=== PATIENT | male | born 1990 | race Caucasian/White ===

== ENCOUNTER 2017-08-26 14:46 | Inpatient (IN) | payer OTHER ==
[2017-08-26 15:59] LABS: HEMATOCRIT 39.9 % (42.0-52.0); HEMOGLOBIN 13.4 g/dl (13.5-17.5); MEAN CORPUSCULAR HEMOGLOBIN 29.6 pg (27.0-33.0); MEAN CORPUSCULAR HGB CONC 33.6 g/dl (32.0-36.5); MEAN CORPUSCULAR VOLUME 88.1 fl (80.0-96.0); PLATELET COUNT, AUTOMATED 264 10^3/uL (150-450); RED BLOOD COUNT 4.53 10^6/uL (4.30-6.10); RED CELL DISTRIBUTION WIDTH 12.4 % (11.5-14.5); WHITE BLOOD COUNT 4.7 10^3/uL (4.0-10.0)
[2017-08-26 16:26] LABS: AMPHETAMINES LEVEL URINE NEGATIVE (NEGATIVE); BARBITURATES URINE NEGATIVE (NEGATIVE); BENZODIAZEPINES URINE NEGATIVE (NEGATIVE); CANNABINOIDS URINE NEGATIVE (NEGATIVE); COCAINE METABOLITE URINE NEGATIVE (NEGATIVE); METHADONE URINE NEGATIVE (NEGATIVE); OPIATES URINE NEGATIVE (NEGATIVE); PHENCYCLIDINE URINE NEGATIVE (NEGATIVE)
[2017-08-26 16:36] LABS: ALBUMIN 4.4 GM/DL (3.2-5.2); ALBUMIN/GLOBULIN RATIO 1.13 (1.00-1.93); ALKALINE PHOSPHATASE 67 U/L (45-117); ALT/SGPT 19 U/L (12-78); ANION GAP 5 MEQ/L (8-16); AST/SGOT 15 U/L (7-37); BILIRUBIN,DIRECT < 0.1 MG/DL (0.0-0.2); BILIRUBIN,TOTAL 0.3 MG/DL (0.2-1.0); BLOOD UREA NITROGEN 13 MG/DL (7-18); CALCIUM LEVEL 8.8 MG/DL (8.5-10.1); CARBON DIOXIDE LEVEL 31 MEQ/L (21-32); CHLORIDE LEVEL 109 MEQ/L (98-107); CREATININE FOR GFR 0.85 MG/DL (0.70-1.30); ETHYL ALCOHOL (ETHANOL) 0.097 % (0.000-0.010); GLOMERULAR FILTRATION RATE > 60.0 (>60); GLUCOSE, FASTING 83 MG/DL (70-100); SALICYLATE LEVEL < 1.7 MG/DL (5.0-30.0); SODIUM LEVEL 145 MEQ/L (136-145); TOTAL PROTEIN 8.3 GM/DL (6.4-8.2)
[2017-08-26] MEDS: ACETAMINOPHEN TAB 650MG DOSE (2X325MG) PO (17:00)
[2017-08-26 17:48] LABS: ACETAMINOPHEN LEVEL < 2.0 UG/ML (10.0-30.0)
[2017-08-26] MEDS ORDERED: MAALOX 30 ML SUSP *UDC PO (19:30)
[2017-08-26] MEDS ORDERED: MOM 30ML SUSPENSION UDC PO (19:30)
[2017-08-26] MEDS ORDERED: ACETAMINOPHEN TAB 650MG DOSE (2X325MG) PO (19:30)
[2017-08-26] MEDS ORDERED: traZODone 50 MG TAB PO (19:30)
[2017-08-27] MEDS: NICOTINE 7 MG/24 HR TRANSDERMAL TD (08:42)
[2017-08-27] MEDS: NICOTINE POLACRILEX 2 MG GUM PO ×3 (11:54→18:58)
[2017-08-27] MEDS: buPROPion **XL** TABLET 150MG (WELLBUTRIN XL) PO (12:14)
[2017-08-27] MEDS: MIRTAZAPINE 7.5MG PER 1/2 TABLET PO (21:54)
[2017-08-28] MEDS: buPROPion **XL** TABLET 150MG (WELLBUTRIN XL) PO (08:30)
[2017-08-28] MEDS: NICOTINE POLACRILEX 2 MG GUM PO ×3 (08:31→20:25)
[2017-08-28] MEDS: MIRTAZAPINE 7.5MG PER 1/2 TABLET PO (20:52)
[2017-08-29] MEDS: buPROPion **XL** TABLET 150MG (WELLBUTRIN XL) PO (09:59)
[2017-08-29] MEDS: hydrOXYzine 25 MG TAB PO ×2 (16:22→21:18)
[2017-08-29] MEDS: NICOTINE POLACRILEX 2 MG GUM PO ×2 (16:22→21:18)
[2017-08-29] MEDS: MIRTAZAPINE 7.5MG PER 1/2 TABLET PO (21:17)
[2017-08-30] MEDS: buPROPion **XL** TABLET 150MG (WELLBUTRIN XL) PO (07:54)
[2017-08-30] MEDS: hydrOXYzine 25 MG TAB PO (09:46)
[2017-08-30] MEDS: NICOTINE POLACRILEX 2 MG GUM PO ×2 (10:29→18:53)
[2017-08-30] MEDS: OLANZapine 5 MG TAB PO ×2 (13:38→21:09)
[2017-08-30] MEDS: MIRTAZAPINE 7.5MG PER 1/2 TABLET PO (21:09)
[2017-08-31] MEDS: OLANZapine 5 MG TAB PO ×2 (07:53→20:17)
[2017-08-31] MEDS: buPROPion **XL** TABLET 150MG (WELLBUTRIN XL) PO (07:53)
[2017-08-31] MEDS: MIRTAZAPINE 7.5MG PER 1/2 TABLET PO (20:17)
[2017-09-01] MEDS: buPROPion **XL** TABLET 150MG (WELLBUTRIN XL) PO (10:17)
[2017-09-01] MEDS: OLANZapine 5 MG TAB PO (10:19)
[2017-09-01] MEDS: NICOTINE POLACRILEX 2 MG GUM PO (11:34)
== END 2017-09-01 12:25 | disposition home or self-care (01) | DRG 885 ==
LOC: M ED 14:46 → M ED INP 19:24 → M PSY 22:50
DX: F33.1 Major depressive disorder, recurrent, moderate (principal); F17.220 Nicotine dependence, chewing tobacco, uncomplicated; F10.10 Alcohol abuse, uncomplicated; Z79.899 Other long term (current) drug therapy; Z62.811 Personal history of psychological abuse in childhood; Z62.810 Personal history of physical and sexual abuse in childhood; Z91.5 Personal history of self-harm

== ENCOUNTER 2017-09-03 12:49 | Inpatient (IN) | payer OTHER ==
[2017-09-03 13:36] LABS: HEMATOCRIT 36.9 % (42.0-52.0); HEMOGLOBIN 12.2 g/dl (13.5-17.5); MEAN CORPUSCULAR HEMOGLOBIN 29.5 pg (27.0-33.0); MEAN CORPUSCULAR HGB CONC 33.1 g/dl (32.0-36.5); MEAN CORPUSCULAR VOLUME 89.3 fl (80.0-96.0); PLATELET COUNT, AUTOMATED 217 10^3/uL (150-450); RED BLOOD COUNT 4.13 10^6/uL (4.30-6.10); WHITE BLOOD COUNT 8.7 10^3/uL (4.0-10.0)
[2017-09-03 14:19] LABS: ALBUMIN/GLOBULIN RATIO 1.14 (1.00-1.93); ALKALINE PHOSPHATASE 63 U/L (45-117); ALT/SGPT 284 U/L (12-78); ANION GAP 4 MEQ/L (8-16); AST/SGOT 165 U/L (7-37); BILIRUBIN,DIRECT < 0.1 MG/DL (0.0-0.2); BILIRUBIN,TOTAL 0.3 MG/DL (0.2-1.0); BLOOD UREA NITROGEN 17 MG/DL (7-18); CALCIUM LEVEL 9.1 MG/DL (8.5-10.1); CARBON DIOXIDE LEVEL 31 MEQ/L (21-32); CHLORIDE LEVEL 106 MEQ/L (98-107); CREATININE FOR GFR 0.89 MG/DL (0.70-1.30); ETHYL ALCOHOL (ETHANOL) < 0.003 % (0.000-0.010); GLOMERULAR FILTRATION RATE > 60.0 (>60); GLUCOSE, FASTING 74 MG/DL (70-100); POTASSIUM SERUM 3.7 MEQ/L (3.5-5.1); SALICYLATE LEVEL < 1.7 MG/DL (5.0-30.0); SODIUM LEVEL 141 MEQ/L (136-145); TOTAL PROTEIN 7.5 GM/DL (6.4-8.2)
[2017-09-03 14:20] LABS: ACETAMINOPHEN LEVEL < 2.0 UG/ML (10.0-30.0)
[2017-09-03 14:37] LABS: AMPHETAMINES LEVEL URINE NEGATIVE (NEGATIVE); BARBITURATES URINE NEGATIVE (NEGATIVE); BENZODIAZEPINES URINE NEGATIVE (NEGATIVE); CANNABINOIDS URINE NEGATIVE (NEGATIVE); COCAINE METABOLITE URINE NEGATIVE (NEGATIVE); METHADONE URINE NEGATIVE (NEGATIVE); OPIATES URINE NEGATIVE (NEGATIVE); PHENCYCLIDINE URINE NEGATIVE (NEGATIVE)
[2017-09-03 15:48] LABS: HEPATITIS B CORE ANTIBODY IGM NEGATIVE (NEGATIVE)
[2017-09-03 15:48] LABS: HEPATITIS C VIRUS ABY INDEX < 0.0 INDEX (<0.8)
[2017-09-03 15:51] LABS: HEPATITIS A ANTIBODY IGM NEGATIVE (NEGATIVE); HEPATITIS B SURFACE ANTIGEN NEGATIVE (NEGATIVE)
[2017-09-03] MEDS ORDERED: MAALOX 30 ML SUSP *UDC PO (18:00)
[2017-09-03] MEDS: OLANZapine 5 MG TAB PO (21:13)
[2017-09-03] MEDS: MIRTAZAPINE 7.5MG PER 1/2 TABLET PO (21:13)
[2017-09-04 07:52] LABS: ALBUMIN 3.9 GM/DL (3.2-5.2); ALBUMIN/GLOBULIN RATIO 1.15 (1.00-1.93); ALKALINE PHOSPHATASE 66 U/L (45-117); ALT/SGPT 262 U/L (12-78); ANION GAP 5 MEQ/L (8-16); AST/SGOT 117 U/L (7-37); BILIRUBIN,TOTAL 0.5 MG/DL (0.2-1.0); BLOOD UREA NITROGEN 16 MG/DL (7-18); CALCIUM LEVEL 9.2 MG/DL (8.5-10.1); CARBON DIOXIDE LEVEL 32 MEQ/L (21-32); CHLORIDE LEVEL 104 MEQ/L (98-107); CREATININE FOR GFR 0.92 MG/DL (0.70-1.30); GLOMERULAR FILTRATION RATE > 60.0 (>60); GLUCOSE, FASTING 87 MG/DL (70-100); POTASSIUM SERUM 4.7 MEQ/L (3.5-5.1); SODIUM LEVEL 141 MEQ/L (136-145); TOTAL PROTEIN 7.3 GM/DL (6.4-8.2)
[2017-09-04] MEDS: buPROPion **XL** TABLET 150MG (WELLBUTRIN XL) PO (08:35)
[2017-09-04] MEDS: OLANZapine 5 MG TAB PO (16:26)
[2017-09-04] MEDS: MIRTAZAPINE 7.5MG PER 1/2 TABLET PO (21:26)
[2017-09-05] MEDS: OLANZapine 5 MG TAB PO (08:27)
[2017-09-05] MEDS: buPROPion **XL** TABLET 150MG (WELLBUTRIN XL) PO (08:27)
[2017-09-05] MEDS: MIRTAZAPINE 7.5MG PER 1/2 TABLET PO (20:56)
[2017-09-06 07:19] LABS: ALBUMIN/GLOBULIN RATIO 1.08 (1.00-1.93); ALKALINE PHOSPHATASE 65 U/L (45-117); ALT/SGPT 145 U/L (12-78); AST/SGOT 37 U/L (7-37); BILIRUBIN,DIRECT 0.1 MG/DL (0.0-0.2); BILIRUBIN,TOTAL 0.3 MG/DL (0.2-1.0); TOTAL PROTEIN 7.7 GM/DL (6.4-8.2)
[2017-09-06] MEDS: buPROPion **XL** TABLET 150MG (WELLBUTRIN XL) PO (08:04)
[2017-09-06] MEDS: OLANZapine 5 MG TAB PO (11:03)
[2017-09-06] MEDS: NICOTINE POLACRILEX 2 MG GUM PO ×3 (11:57→19:24)
[2017-09-06] MEDS: busPIRone 5 MG TAB PO ×2 (12:05→20:58)
[2017-09-06] MEDS: MIRTAZAPINE 7.5MG PER 1/2 TABLET PO (20:58)
[2017-09-06] MEDS: hydrOXYzine 25 MG TAB PO (20:58)
[2017-09-06] MEDS: MOM 30ML SUSPENSION UDC PO (20:59)
[2017-09-07] MEDS: PILL CRUSHER/CUTTER 1 EACH XX (08:07)
[2017-09-07] MEDS: NICOTINE POLACRILEX 2 MG GUM PO ×2 (08:07→12:04)
[2017-09-07] MEDS: buPROPion **XL** TABLET 150MG (WELLBUTRIN XL) PO (08:07)
[2017-09-07] MEDS: busPIRone 5 MG TAB PO ×2 (08:07→20:41)
[2017-09-07] MEDS: OLANZapine 5 MG TAB PO (12:04)
[2017-09-07] MEDS: MIRTAZAPINE 7.5MG PER 1/2 TABLET PO (20:40)
[2017-09-08] MEDS: buPROPion **XL** TABLET 150MG (WELLBUTRIN XL) PO (08:26)
[2017-09-08] MEDS: busPIRone 5 MG TAB PO ×2 (08:26→20:46)
[2017-09-08] MEDS: PILL CRUSHER/CUTTER 1 EACH XX ×2 (08:26→20:47)
[2017-09-08] MEDS: NICOTINE POLACRILEX 2 MG GUM PO ×2 (08:26→10:55)
[2017-09-08] MEDS: MOM 30ML SUSPENSION UDC PO (10:55)
[2017-09-08] MEDS: MIRTAZAPINE 7.5MG PER 1/2 TABLET PO (20:46)
[2017-09-08] MEDS: BISACODYL 5 MG TAB PO (21:43)
[2017-09-09] MEDS: buPROPion **XL** TABLET 150MG (WELLBUTRIN XL) PO (08:36)
[2017-09-09] MEDS: busPIRone 5 MG TAB PO ×2 (08:36→21:11)
[2017-09-09] MEDS: NICOTINE POLACRILEX 2 MG GUM PO (16:17)
[2017-09-09] MEDS: MIRTAZAPINE 7.5MG PER 1/2 TABLET PO (21:11)
[2017-09-10] MEDS: buPROPion **XL** TABLET 150MG (WELLBUTRIN XL) PO (06:22)
[2017-09-10] MEDS: busPIRone 5 MG TAB PO (06:22)
[2017-09-10] MEDS: hydrOXYzine 25 MG TAB PO (06:22)
[2017-09-10] MEDS: NICOTINE POLACRILEX 2 MG GUM PO (06:23)
== END 2017-09-10 07:15 | disposition home or self-care (01) | DRG 885 ==
LOC: M ED 12:49 → M ED INP 15:20 → M PSY 16:12
DX: F33.2 Major depressive disorder, recurrent severe without psychotic features (principal); F79 Unspecified intellectual disabilities; F17.228 Nicotine dependence, chewing tobacco, with other nicotine-induced disorders; Z91.5 Personal history of self-harm

== ENCOUNTER 2018-03-05 17:07 | Inpatient (IN) | payer OTHER ==
[2018-03-05 17:52] LABS: HEMATOCRIT 44.7 % (42.0-52.0); HEMOGLOBIN 14.8 g/dl (13.5-17.5); MEAN CORPUSCULAR HEMOGLOBIN 30.4 pg (27.0-33.0); MEAN CORPUSCULAR HGB CONC 33.1 g/dl (32.0-36.5); MEAN CORPUSCULAR VOLUME 91.8 fl (80.0-96.0); PLATELET COUNT, AUTOMATED 266 10^3/uL (150-450); RED BLOOD COUNT 4.87 10^6/uL (4.30-6.10); RED CELL DISTRIBUTION WIDTH 13.8 % (11.5-14.5); WHITE BLOOD COUNT 5.4 10^3/uL (4.0-10.0)
[2018-03-05 18:28] LABS: ACETAMINOPHEN LEVEL < 2.0 UG/ML (10.0-30.0); ALBUMIN 4.1 GM/DL (3.2-5.2); ALBUMIN/GLOBULIN RATIO 1.14 (1.00-1.93); ALKALINE PHOSPHATASE 70 U/L (45-117); ALT/SGPT 26 U/L (12-78); ANION GAP 8 MEQ/L (8-16); AST/SGOT 23 U/L (7-37); BILIRUBIN,DIRECT 0.1 MG/DL (0.0-0.2); BILIRUBIN,TOTAL 0.5 MG/DL (0.2-1.0); BLOOD UREA NITROGEN 16 MG/DL (7-18); CALCIUM LEVEL 9.1 MG/DL (8.5-10.1); CARBON DIOXIDE LEVEL 28 MEQ/L (21-32); CHLORIDE LEVEL 104 MEQ/L (98-107); CREATININE FOR GFR 1.02 MG/DL (0.70-1.30); ETHYL ALCOHOL (ETHANOL) 0.045 % (0.000-0.010); GLOMERULAR FILTRATION RATE > 60.0 (>60); GLUCOSE, FASTING 88 MG/DL (70-100); POTASSIUM SERUM 4.4 MEQ/L (3.5-5.1); SALICYLATE LEVEL < 1.7 MG/DL (5.0-30.0); SODIUM LEVEL 140 MEQ/L (136-145); THYROID STIMULATING HORMONE 0.928 uIU/ML (0.358-3.740); TOTAL PROTEIN 7.7 GM/DL (6.4-8.2)
[2018-03-05 19:34] LABS: AMPHETAMINES LEVEL URINE NEGATIVE (NEGATIVE); BARBITURATES URINE NEGATIVE (NEGATIVE); BENZODIAZEPINES URINE NEGATIVE (NEGATIVE); CANNABINOIDS URINE NEGATIVE (NEGATIVE); COCAINE METABOLITE URINE NEGATIVE (NEGATIVE); METHADONE URINE NEGATIVE (NEGATIVE); OPIATES URINE NEGATIVE (NEGATIVE); PHENCYCLIDINE URINE NEGATIVE (NEGATIVE)
[2018-03-05] MEDS: ACETAMINOPHEN TAB 650MG DOSE (2X325MG) PO (20:15)
[2018-03-05] MEDS ORDERED: ACETAMINOPHEN TAB 650MG DOSE (2X325MG) PO (21:15)
[2018-03-05] MEDS ORDERED: MOM 30ML SUSPENSION UDC PO (21:15)
[2018-03-05] MEDS ORDERED: MAALOX 30 ML SUSP *UDC PO (21:15)
[2018-03-05] MEDS: THIAMINE 100 MG TAB PO (23:41)
[2018-03-05] MEDS ORDERED: LORazepam 2 MG TAB PO (23:45)
[2018-03-06] MEDS: MULTIVITAMINS/MINERALS THERAP 1 TAB PO ×2 (09:00→13:49)
[2018-03-06] MEDS: THIAMINE 100 MG TAB PO ×3 (09:00→21:08)
[2018-03-06] MEDS: FOLIC ACID 1 MG TAB PO ×2 (09:00→13:49)
[2018-03-06] MEDS: KETOCONAZOLE 2% CREAM TOP ×2 (12:10→21:08)
[2018-03-06] MEDS: diphenhydrAMINE 50 MG CAP PO ×2 (13:47→21:37)
[2018-03-06] MEDS: buPROPion **XL** TABLET 150MG (WELLBUTRIN XL) PO (15:51)
[2018-03-06] MEDS: busPIRone 10 MG TAB PO ×2 (15:51→21:08)
[2018-03-06] MEDS: ARIPiprazole 10 MG TAB PO (21:08)
[2018-03-06] MEDS: traZODone 50 MG TAB PO (21:36)
[2018-03-07] MEDS: KETOCONAZOLE 2% CREAM TOP ×2 (08:59→21:19)
[2018-03-07] MEDS: busPIRone 10 MG TAB PO (09:00)
[2018-03-07] MEDS: THIAMINE 100 MG TAB PO ×2 (09:00→21:19)
[2018-03-07] MEDS: MULTIVITAMINS/MINERALS THERAP 1 TAB PO (09:00)
[2018-03-07] MEDS: FOLIC ACID 1 MG TAB PO (09:00)
[2018-03-07] MEDS: VENLAFAXINE **XR** 37.5 MG CAPSULE PO (09:00)
[2018-03-07] MEDS: buPROPion **XL** TABLET 150MG (WELLBUTRIN XL) PO (09:00)
[2018-03-07] MEDS: diphenhydrAMINE 50 MG CAP PO ×2 (09:00→21:19)
[2018-03-07] MEDS: traZODone 50 MG TAB PO (21:19)
[2018-03-07] MEDS: QUEtiapine FUMERATE XR 50 MG TABER PO (21:19)
[2018-03-08] MEDS: MULTIVITAMINS/MINERALS THERAP 1 TAB PO (09:27)
[2018-03-08] MEDS: FOLIC ACID 1 MG TAB PO (09:27)
[2018-03-08] MEDS: diphenhydrAMINE 50 MG CAP PO ×2 (09:27→20:33)
[2018-03-08] MEDS: THIAMINE 100 MG TAB PO (09:27)
[2018-03-08] MEDS: VENLAFAXINE **XR** 37.5 MG CAPSULE PO (09:27)
[2018-03-08] MEDS: KETOCONAZOLE 2% CREAM TOP ×2 (09:27→20:34)
[2018-03-08] MEDS: traZODone 50 MG TAB PO (20:33)
[2018-03-08] MEDS: hydrOXYzine 50 MG TAB PO (20:33)
[2018-03-08] MEDS: QUEtiapine FUMERATE XR 50 MG TABER PO (20:33)
[2018-03-09] MEDS: MULTIVITAMINS/MINERALS THERAP 1 TAB PO (09:06)
[2018-03-09] MEDS: FOLIC ACID 1 MG TAB PO (09:06)
[2018-03-09] MEDS: diphenhydrAMINE 50 MG CAP PO (09:06)
[2018-03-09] MEDS: VENLAFAXINE **XR** 37.5 MG CAPSULE PO (09:06)
[2018-03-09] MEDS: KETOCONAZOLE 2% CREAM TOP ×2 (09:07→22:15)
[2018-03-09] MEDS: QUEtiapine FUMERATE XR 50 MG TABER PO (20:51)
[2018-03-10] MEDS: MULTIVITAMINS/MINERALS THERAP 1 TAB PO (08:34)
[2018-03-10] MEDS: KETOCONAZOLE 2% CREAM TOP ×2 (08:34→20:24)
[2018-03-10] MEDS: FOLIC ACID 1 MG TAB PO (08:34)
[2018-03-10] MEDS: VENLAFAXINE **XR** 37.5 MG CAPSULE PO (08:34)
[2018-03-10] MEDS: PROPRANOLOL 10 MG TAB PO ×3 (12:53→20:23)
[2018-03-10] MEDS: LEVOTHYROXINE 25MCG TABLET (0.025MG) PO (15:29)
[2018-03-10] MEDS: diphenhydrAMINE 50 MG CAP PO (15:30)
[2018-03-10] MEDS: QUEtiapine FUMERATE XR 50 MG TABER PO (20:22)
[2018-03-11] MEDS: LEVOTHYROXINE 25MCG TABLET (0.025MG) PO (06:53)
[2018-03-11] MEDS: PROPRANOLOL 10 MG TAB PO ×3 (09:01→20:17)
[2018-03-11] MEDS: VENLAFAXINE **XR** 37.5 MG CAPSULE PO (09:01)
[2018-03-11] MEDS: KETOCONAZOLE 2% CREAM TOP ×2 (09:01→21:25)
[2018-03-11] MEDS: hydrOXYzine 50 MG TAB PO (20:17)
[2018-03-11] MEDS: diphenhydrAMINE 50 MG CAP PO (20:17)
[2018-03-11] MEDS: QUEtiapine FUMERATE XR 50 MG TABER PO (20:17)
[2018-03-12] MEDS: LEVOTHYROXINE 25MCG TABLET (0.025MG) PO (06:17)
[2018-03-12] MEDS: diphenhydrAMINE 50 MG CAP PO ×2 (09:13→22:00)
[2018-03-12] MEDS: KETOCONAZOLE 2% CREAM TOP ×2 (09:13→22:00)
[2018-03-12] MEDS: VENLAFAXINE **XR** 37.5 MG CAPSULE PO (09:13)
[2018-03-12] MEDS: PROPRANOLOL 10 MG TAB PO ×3 (09:14→21:00)
[2018-03-12] MEDS: QUEtiapine FUMERATE XR 50 MG TABER PO (22:00)
[2018-03-12] MEDS: hydrOXYzine 50 MG TAB PO (22:01)
[2018-03-13] MEDS: LEVOTHYROXINE 25MCG TABLET (0.025MG) PO (06:09)
[2018-03-13] MEDS: PROPRANOLOL 10 MG TAB PO ×3 (09:21→21:00)
[2018-03-13] MEDS: diphenhydrAMINE 50 MG CAP PO ×2 (09:21→22:17)
[2018-03-13] MEDS: KETOCONAZOLE 2% CREAM TOP ×2 (09:22→22:18)
[2018-03-13] MEDS: VENLAFAXINE **XR** 37.5 MG CAPSULE PO (09:22)
[2018-03-13] MEDS: hydrOXYzine 50 MG TAB PO (22:17)
[2018-03-13] MEDS: QUEtiapine FUMERATE XR 50 MG TABER PO (22:17)
[2018-03-14] MEDS: LEVOTHYROXINE 25MCG TABLET (0.025MG) PO (06:06)
[2018-03-14] MEDS: KETOCONAZOLE 2% CREAM TOP (09:09)
[2018-03-14] MEDS: VENLAFAXINE **XR** 37.5 MG CAPSULE PO (09:09)
[2018-03-14] MEDS: PROPRANOLOL 10 MG TAB PO (09:11)
== END 2018-03-14 12:45 | disposition home or self-care (01) | DRG 881 ==
LOC: M ED 17:07 → M ED INP 21:02 → M PSY 22:19
DX: F32.9 Major depressive disorder, single episode, unspecified (principal); R45.851 Suicidal ideations; F10.10 Alcohol abuse, uncomplicated; Z79.899 Other long term (current) drug therapy; G47.00 Insomnia, unspecified; B37.2 Candidiasis of skin and nail; F17.220 Nicotine dependence, chewing tobacco, uncomplicated

== ENCOUNTER 2018-03-25 22:57 | Inpatient (IN) | payer OTHER ==
[~2018-03-25] VITALS: Ht 185.4 cm; Wt 81.7 kg
[~2018-03-25 22:57] MED LIST: ARIP1TAB2; BUPR150T3 PO; BUSP10TA; BUSP5TA PO; CYPR4TA; HYDR50CA2; HYDRO50TAB PO; KETO2CR TOP; LEVO25TA5; LEVO25TA5 PO; MIRT15TA3 PO; OLAN5TAB PO; PROP10TAB PO; PROP20TA72; QUET50TA48 PO; SERT-155; TRAZ-160; TRAZ-160 PO; TRAZ1TAB14; TRAZO50TA PO; VENL37.598 PO; WELLTAB38; ZOLO100T PO
[2018-03-25] MEDS ORDERED: LEVO25TA5 PO (23:21)
[2018-03-25] MEDS ORDERED: PROP10TAB PO (23:21)
[2018-03-25] MEDS ORDERED: VENL37TA PO (23:21)
[2018-03-25] MEDS ORDERED: HYDR50TA70 PO (23:21)
[2018-03-25] MEDS ORDERED: SERO50TA PO (23:21)
[2018-03-25] MEDS ORDERED: SERO1TAB PO (23:21)
[2018-03-25] MEDS ORDERED: TRAZ-160 PO (23:21)
[2018-03-26 00:31] LABS: HEMATOCRIT 41.9 % (42.0-52.0); HEMOGLOBIN 13.9 g/dl (13.5-17.5); MEAN CORPUSCULAR HEMOGLOBIN 29.8 pg (27.0-33.0); MEAN CORPUSCULAR HGB CONC 33.2 g/dl (32.0-36.5); MEAN CORPUSCULAR VOLUME 89.9 fl (80.0-96.0); PLATELET COUNT, AUTOMATED 269 10^3/uL (150-450); RED BLOOD COUNT 4.66 10^6/uL (4.30-6.10); WHITE BLOOD COUNT 6.4 10^3/uL (4.0-10.0)
[2018-03-26 00:50] LABS: AMPHETAMINES LEVEL URINE NEGATIVE (NEGATIVE); BARBITURATES URINE NEGATIVE (NEGATIVE); BENZODIAZEPINES URINE NEGATIVE (NEGATIVE); CANNABINOIDS URINE NEGATIVE (NEGATIVE); COCAINE METABOLITE URINE NEGATIVE (NEGATIVE); METHADONE URINE NEGATIVE (NEGATIVE); OPIATES URINE NEGATIVE (NEGATIVE); PHENCYCLIDINE URINE NEGATIVE (NEGATIVE)
[2018-03-26 00:51] LABS: ACETAMINOPHEN LEVEL < 2.0 UG/ML (10.0-30.0); ALBUMIN 3.6 GM/DL (3.2-5.2); ALT/SGPT 24 U/L (12-78); BILIRUBIN,DIRECT < 0.1 MG/DL (0.0-0.2); BILIRUBIN,TOTAL 0.1 MG/DL (0.2-1.0); BLOOD UREA NITROGEN 12 MG/DL (7-18); CALCIUM LEVEL 8.5 MG/DL (8.5-10.1); CARBON DIOXIDE LEVEL 29 MEQ/L (21-32); CHLORIDE LEVEL 111 MEQ/L (98-107); CREATININE FOR GFR 0.89 MG/DL (0.70-1.30); ETHYL ALCOHOL (ETHANOL) 0.158 % (0.000-0.010); GLOMERULAR FILTRATION RATE > 60.0 (>60); GLUCOSE, FASTING 94 MG/DL (70-100); POTASSIUM SERUM 3.8 MEQ/L (3.5-5.1); SALICYLATE LEVEL < 1.7 MG/DL (5.0-30.0); SODIUM LEVEL 148 MEQ/L (136-145); TOTAL PROTEIN 6.9 GM/DL (6.4-8.2)
[2018-03-26] MEDS ORDERED: MOM 30ML SUSPENSION UDC PO PRN (04:30)
[2018-03-26] MEDS ORDERED: traZODone 50 MG TAB PO PRN (04:30)
[2018-03-26] MEDS ORDERED: MAALOX 30 ML SUSP *UDC PO PRN (04:30)
[2018-03-26] MEDS ORDERED: LORazepam 2 MG TAB PO PRN (04:30)
[2018-03-26 05:02] VITALS: BP 138/87
[2018-03-26 05:04] VITALS: BP 138/87
[2018-03-26] MEDS: ACETAMINOPHEN TAB 650MG DOSE (2X325MG) PO PRN ×2 (08:58→20:59)
[2018-03-26] MEDS: MULTIVITAMINS/MINERALS THERAP 1 TAB PO SCH (08:59)
[2018-03-26] MEDS: FOLIC ACID 1 MG TAB PO SCH (08:59)
[2018-03-26] MEDS: THIAMINE 100 MG TAB PO SCH ×2 (08:59→20:58)
[2018-03-26 11:40] VITALS: BP 129/64
[2018-03-26 11:44] VITALS: BP 129/64
[2018-03-26] MEDS ORDERED: LORazepam 2 MG/ML VIAL (J2060) IM STA (15:00)
[2018-03-26] MEDS ORDERED: OLANZapine ORAL DISINTEGRATING TAB 5MG PO PRN (15:00)
[2018-03-26] MEDS ORDERED: ONDANSETRON 4MG/2ML VIAL (J2405) IM ONE (15:30)
[2018-03-26 18:45] VITALS: BP 113/63
[2018-03-26 20:41] VITALS: BP 142/84
[2018-03-26] MEDS: QUEtiapine FUMARATE 50 MG TAB PO SCH (20:58)
[2018-03-26] MEDS: VENLAFAXINE **XR** 37.5 MG CAPSULE PO SCH (21:00)
[2018-03-26] MEDS ORDERED: VENL37.598 PO (21:06)
[2018-03-26] MEDS ORDERED: EFFE37.5 PO (21:07)
[2018-03-27] MEDS: LEVOTHYROXINE 25MCG TABLET (0.025MG) PO SCH (06:05)
[2018-03-27 06:57] LABS: BASO % 0.4 % (0.0-1.0); EOS # 0.2 10^3/uL (0.0-0.50); HEMATOCRIT 42.2 % (42.0-52.0); HEMOGLOBIN 14.3 g/dl (13.5-17.5); LYMPH # 1.7 10^3/uL (1.5-6.5); MEAN CORPUSCULAR HEMOGLOBIN 30.2 pg (27.0-33.0); MEAN CORPUSCULAR HGB CONC 33.9 g/dl (32.0-36.5); MEAN CORPUSCULAR VOLUME 89.2 fl (80.0-96.0); MONO # 0.7 10^3/uL (0.0-0.8); MONO % 13.7 % (0.0-5.0); NEUTROPHILS # 2.5 10^3/uL (1.8-7.7); NEUTROPHILS % 48.7 % (36.0-66.0); PLATELET COUNT, AUTOMATED 250 10^3/uL (150-450); RED BLOOD COUNT 4.73 10^6/uL (4.30-6.10)
[2018-03-27 07:10] VITALS: BP 140/89
[2018-03-27 07:22] LABS: ALBUMIN 3.7 GM/DL (3.2-5.2); ALT/SGPT 25 U/L (12-78); BILIRUBIN,TOTAL 0.4 MG/DL (0.2-1.0); BLOOD UREA NITROGEN 18 MG/DL (7-18); CARBON DIOXIDE LEVEL 30 MEQ/L (21-32); CHLORIDE LEVEL 104 MEQ/L (98-107); CREATININE FOR GFR 0.87 MG/DL (0.70-1.30); GLOMERULAR FILTRATION RATE > 60.0 (>60); GLUCOSE, FASTING 92 MG/DL (70-100); POTASSIUM SERUM 4.3 MEQ/L (3.5-5.1); SODIUM LEVEL 139 MEQ/L (136-145); TOTAL PROTEIN 6.8 GM/DL (6.4-8.2)
[2018-03-27] MEDS: THIAMINE 100 MG TAB PO SCH ×2 (08:43→20:10)
[2018-03-27] MEDS: FOLIC ACID 1 MG TAB PO SCH (08:43)
[2018-03-27] MEDS: MULTIVITAMINS/MINERALS THERAP 1 TAB PO SCH (08:43)
[2018-03-27] MEDS ORDERED: INFLUENZA QUADRIVALENT PF VACCINE 0.5ML SYRINGE (90686) IM ONE (09:00)
[2018-03-27 12:46] VITALS: BP 134/84
[2018-03-27 18:11] VITALS: BP 134/85
[2018-03-27] MEDS ORDERED: OLANZapine ORAL DISINTEGRATING TAB 5MG PO PRN (19:30)
[2018-03-27] MEDS: traZODone 50 MG TAB PO PRN (20:08)
[2018-03-27] MEDS: QUEtiapine FUMARATE 50 MG TAB PO SCH (20:08)
[2018-03-27] MEDS: VENLAFAXINE **XR** 37.5 MG CAPSULE PO SCH (20:10)
[2018-03-27 21:00] VITALS: BP 130/78
[2018-03-27 21:09] VITALS: BP 89/78
[2018-03-28] MEDS: LEVOTHYROXINE 25MCG TABLET (0.025MG) PO SCH (06:24)
[2018-03-28 06:43] VITALS: BP 131/75
[2018-03-28 06:44] VITALS: BP 131/75
[2018-03-28] MEDS: FOLIC ACID 1 MG TAB PO SCH (09:03)
[2018-03-28] MEDS: MULTIVITAMINS/MINERALS THERAP 1 TAB PO SCH (09:03)
[2018-03-28] MEDS: THIAMINE 100 MG TAB PO SCH ×2 (09:03→22:00)
[2018-03-28] MEDS: ACETAMINOPHEN TAB 650MG DOSE (2X325MG) PO PRN (11:40)
--- NOTE | 2018-03-28 11:58 | MHHPE ---
DATE OF ADMISSION: 03/26/2018 CHIEF COMPLAINT: Angry. 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 Has had a few hospitalizations this year. Was here recently, 03/05/2018 to 03/14/2018, seen by Dr. Fuentes, whose discharge summary is reviewed. Carries a diagnosis of major depressive disorder as well as alcohol use disorder. He had come in to the hospital expressing suicidal thoughts and intents. Was at the [facility], had been drinking, and per the emergency room (ER) note, acknowledged making possible statements alluding to suicide. It should be noted I was unable to obtain a full history from the patient as he had been quite angry and upset during the afternoon. Before he could be interviewed, had been agitated, banging on the glass partition at the nurse's station, threw a chair as well. A code 25 was called. He had felt nauseated, was eventually given intramuscular Zofran, and as he was not amenable to direction and felt increasingly agitated, was given Ativan 1 mg intramuscular; and since then, has been somewhat sedated. When I went to see him in his room, gave brief but coherent answers and essentially did not engage but was alert, not agitated. Indicated felt tired. Per the ER note, has felt depressed, numerous stressors, including getting . Apparently he is in the process of being asked to leave the , as well. He was unable to indicate he would be able to maintain his safety when seen at the ER downstairs. He had also had previous attempts of hurting himself. He has had thoughts of driving his car into the [place]. Attends [facility] as well as the [facility] ([facility]). PAST PSYCHIATRIC HISTORY: Please refer to the previous summaries. MEDICATIONS: He is on: - levothyroxine (Synthroid) 25 mcg daily - propranolol 10 mg three times a day - quetiapine 150 mg at night - hydroxyzine 50 mg every 6 hours as needed for anxiety - Effexor 37.5 mg daily - trazodone 50 mg at night as needed for insomnia BACKGROUND HISTORY: Please refer to previous summaries. MENTAL STATUS EXAM: Essentially in the restraints room, but he is not in restraints. Guarded essentially and did not get involved with the conversation, but answered questions very briefly but coherently; and then when others were asked, did not give any answers but was alert with a flat affect. He was not agitated. Could not ascertain whether he was responding to internal stimuli or whether he was oriented to time. He was oriented to place and person. Judgment and insight are poor. ASSESSMENT: Major depressive disorder, recurrent, severe. Alcohol use disorder. One of his previous admission, the possibility of cognitive difficulties secondary to traumatic brain injury was also raised. PLAN: He is admitted to the inpatient psychiatry unit, placed on relevant precautions, and we will monitor him at his current status. Will obtain collateral information. He will receive a medicine consult if indicated. We will continue with his medication regimen as at present, and he will be discharged with followup once he is stable. I anticipate a 5-7 day stay. VITAL SIGNS: Blood pressure 113/63, pulse 89, temperature 98.9. INVESTIGATIONS: Complete blood count essentially within normal limits. Metabolic profile essentially within normal limits except for sodium at 148 (136-145), chloride 111 (98-107). Further recommendations will be made depending on the clinical picture. The assessment took 30 minutes.
--- NOTE | 2018-03-28 14:22 | HPE ---
DATE OF ADMISSION: 03/26/2018 HISTORY OF PRESENT ILLNESS: Please refer to psychiatric history and evaluation for further details on this admission. This examination and history is intended for medical issues, which may need treatment, followup or consultation on this 27-year-old male. ALLERGIES: No known allergies. SOCIAL HISTORY: The patient is but . 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 ETOH: Four or more times a week. PAST MEDICAL HISTORY: PAST SURGICAL HISTORY: Negative. HOME MEDICATIONS: - levothyroxine 25 mcg by mouth daily - propranolol 10 mg by mouth three times a day - Seroquel 50 mg by mouth in the morning and 100 mg by mouth at night - trazodone 50 mg by mouth at night as needed for insomnia REVIEW OF SYSTEMS: Ten system review unable to complete. The patient had been quite agitated earlier and complained of nausea and headache, had been medicated and is too sleepy to participate in the assessment. LABORATORY STUDIES: WBC 6.4, hemoglobin 13.9, hematocrit 41.9. Sodium was slightly low at 148, potassium 3.8, chloride 111, CO2 of 29. Toxicology showed ETOH to be 0.158. PHYSICAL EXAMINATION: CHEST: Clear to auscultation, respirations 16 per minute. No wheeze or retraction. HEART: Regular. SKIN: Warm and dry. The patient was very groggy, but aroused easily. IMPRESSION/PLAN: 1. Psychiatric plan per psychiatry. 2. Monitor for withdrawal. MTDD
--- NOTE | 2018-03-28 14:34 | MHIPNPDOC ---
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 PT with hx of depression as well and prior admissions to [facility]. Pt is now clinically sober, appears depressed, poor eye contact, initially states he does not know why he is here but then admits to possibly making suicidal comments to a friend that was with him in his room earlier. Pt admits to feeling depressed due to numerous stressors, reports he is getting , he is being "kicked out of the [employer]", does not see a future for himself because things are falling through at home, and feels he is looked at as "one of the undesirables" at [place]. When asked if he is feeling suicidal pt replies "well not here",when asked if he can maintain his safety if he is d/c'd back to [place] he replies "I don't know". Pt reports prior attempts at self harm, was stopped by his Sgt. when he tried to cut self, also reports attempting to cut wrist with "paper clip while I was in skilled nursing". PT also reports thoughts of "driving my car into the [place]". Pt denies HI, denies AH/VH, states he has been going to [facility] and [facility] however continues to drink daily to intoxication, denies any drug use" VITAL SIGNS: See below. NEW TEST RESULTS: See below CURRENT MEDICATIONS: See below. MENTAL STATUS EXAMINATION: Patient is a 27 year old male, who is alert, dressed in hospital clothes. Speech: Is fluent, spontaneous, normal rate, tone and volume. Language skills are normal Thought processes including: intact. Thought content: Suicidal ideation is present, he is hopeless and helpless, self deprecating thoughts are present. Description of abnormal or psychotic thoughts: Denies AV hallucinations, denies thought delusions, admits to ACTIVE SUICIDAL IDEATION, denies homicidal ideation Judgment: Poor. Insight: limited. Orientation: x 3. Recent and remote memory: intact. Attention span and concentration: good. Language: good. Fund of knowledge: average. Mood: depressed. Affect: depressed. DIAGNOSES: 1. Major Depressive disorder, recurrent, severe 2. Alcohol use disorder. 3. 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 HE SAYS ALL WHAT HE WANTS IS FOR THE NURSES TO LOOK AWAY FOR 2 SECONDS TO BE DONE WITH IT. 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 MANAGEMENT PLAN: 1.Continue on a 1:1. He is at high risk for suicide, he needs to be on a sitter. 2. Venlafaxine 75 mgs PO daily 3. Seroquel 150 mgs PO QHS 4. Levothyroxine 25 mcg Po daily TIME SPENT: 35 minutes. Vital Signs Vital Signs Date Time Temp Pulse Resp B/P (MAP) Pulse Ox O2 Delivery O2 Flow Rate FiO2 03/28/18 06:44 97 131/75 03/28/18 06:43 97.2 18 Room Air 03/26/18 11:44 98 Current Medications Current Medications Acetaminophen (Tylenol Tab) 650 mg Q6HP PRN PO HEADACHE or DISCOMFORT Last administered on 03/28/18at 11:40; Start 03/26/18 at 04:30 Al Hydrox/Mg Hydrox/Simethicone (Mylanta) 30 ml Q4HP PRN PO HEARTBURN/INDIGESTION; Start 03/26/18 at 04:30 Folic Acid (Folic Acid) 1 mg DAILY PO Last administered on 03/28/18at 09:03; Start 03/26/18 at 09:00 Home Med (Med Rec Complete!) ASDIRECTED XX ; Start 03/26/18 at 05:15; Stop 03/26/18 at 05:15; Status DC Levothyroxine Sodium (Synthroid) 25 mcg DAILY@06 PO Last administered on 03/28/18at 06:24; Start 03/27/18 at 06:00 Lorazepam (Ativan) 1 mg STAT STAT IM Last administered on 03/26/18at 15:15; Start 03/26/18 at 15:00; Stop 03/26/18 at 15:03; Status DC Lorazepam (Ativan) 2 mg ASDIRECTED PRN PO SEE PROTOCOL; Start 03/26/18 at 04:30; Status Cancel Magnesium Hydroxide (Milk Of Magnesia) 30 ml DAILYPRN PRN PO CONSTIPATION; Start 03/26/18 at 04:30 Multivitamins (Theragram-M) 1 tab DAILY PO Last administered on 03/28/18at 09:03; Start 03/26/18 at 09:00 Olanzapine (ZyPREXA ZYDIS) 5 mg Q4HP PRN PO ANXIETY/AGITATION; Start 03/27/18 at 19:30 Olanzapine (ZyPREXA ZYDIS) 5 mg Q6HP PRN PO ANXIETY/AGITATION; Start 03/26/18 at 15:00; Stop 03/26/18 at 15:08; Status DC Quetiapine Fumarate (SEROquel) 150 mg QHS PO Last administered on 03/27/18at 20:08; Start 03/26/18 at 21:00 Thiamine HCl (Thiamine HCl) 100 mg BID PO Last administered on 03/28/18at 09:03; Start 03/26/18 at 09:00; Stop 03/29/18 at 08:59 Trazodone HCl (Desyrel) 50 mg QHSP PRN PO INSOMNIA; Start 03/26/18 at 04:30; Stop 03/26/18 at 20:49; Status DC Trazodone HCl (Desyrel) 50 mg QHSP PRN PO INSOMNIA Last administered on 03/27/18at 20:08; Start 03/27/18 at 19:30 Venlafaxine HCl (Effexor Xr) 37.5 mg QHS PO Last administered on 03/27/18at 20:10; Start 03/26/18 at 21:00 Allergies Coded Allergies: No Known Allergies (Unverified , 03/25/18) DARREN CANNON MD Mar 28, 2018 14:34
[2018-03-28] MEDS ORDERED: OLANZapine ORAL DISINTEGRATING TAB 5MG PO STA (14:40)
--- NOTE | 2018-03-28 17:59 | MHIPN ---
DATE: 03/27/2018 CHIEF COMPLAINT: He feels okay. SUBJECTIVE: He is seen for followup. He indicates he feels okay, but still mostly irritable, he says he slept a bit. Appetite is fair. He has suicidal thoughts. No firm plans. MENTAL STATUS EXAMINATION: Neat, somewhat guarded, superficially cooperative. No current agitation. Answers questions briefly, logically. He tends to have a stare, unclear if he is responding to internal stimuli. He has suicidal thoughts. No active plans. He does not appear internally preoccupied. No delusional ideations elicited. Insight and judgment are quite questionable. ASSESSMENT: 1. Major depressive disorder. 2. Alcohol use disorder. The possibility of a cognitive disorder has also been raised at previous admissions, and that needs to be taken into consideration. PLAN: We will continue current care, observations. The trazodone was discontinued, as there were concerns regarding interactions between that and the Seroquel. He wishes for it to be resumed, we will do so, as well as his other medications, some of them, and we will continue with observations. Collateral information will be obtained. We will need to monitor for withdrawal, indicates he has been drinking regularly. He is guarded, and not very reliable in terms of a history, that has to be taken into account. We will also place him on Zyprexa to help with agitation. VITAL SIGNS: Blood pressure 140/89, pulse 94, temperature 98.7. Later ones done around 6:00 p.m. were blood pressure 134/85, pulse 79, temperature 99.2. I was called later, staff indicated that the patient had been expressing suicidal thoughts, had made superficial scratches with a paperclip of sorts. In view of this, I will place him on one-to-one observation, room restriction as well, and we will add Zydis for agitation, with a maximum daily dose of 15 mg. He will be seeing his treatment team and the assigned psychiatrist tomorrow.
[2018-03-28 18:00] VITALS: BP 141/78
[2018-03-28] MEDS: VENLAFAXINE **XR** 75MG CAPSULE PO SCH (22:00)
[2018-03-28] MEDS: QUEtiapine FUMARATE 50 MG TAB PO SCH (22:00)
[2018-03-29] MEDS: LEVOTHYROXINE 25MCG TABLET (0.025MG) PO SCH (06:33)
[2018-03-29 07:13] VITALS: BP 147/89
[2018-03-29] MEDS: FOLIC ACID 1 MG TAB PO SCH (09:56)
[2018-03-29] MEDS: MULTIVITAMINS/MINERALS THERAP 1 TAB PO SCH (09:56)
--- NOTE | 2018-03-29 14:32 | MHIPNPDOC ---
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 PT with hx of depression as well and prior admissions to [facility]. Pt is now clinically sober, appears depressed, poor eye contact, initially states he does not know why he is here but then admits to possibly making suicidal comments to a friend that was with him in his room earlier. Pt admits to feeling depressed due to numerous stressors, reports he is getting , he is being "kicked out of the [employer]", does not see a future for himself because things are falling through at home, and feels he is looked at as "one of the undesirables" at [place]. When asked if he is feeling suicidal pt replies "well not here",when asked if he can maintain his safety if he is d/c'd back to [place] he replies "I don't know". Pt reports prior attempts at self harm, was stopped by his Sgt. when he tried to cut self, also reports attempting to cut wrist with "paper clip while I was in assisted". PT also reports thoughts of "driving my car into the [place]". Pt denies HI, denies AH/VH, states he has been going to [facility] and [facility] however continues to drink daily to intoxication, denies any drug use" VITAL SIGNS: See below. NEW TEST RESULTS: See below CURRENT MEDICATIONS: See below. MENTAL STATUS EXAMINATION: Patient is a 27 year old male, who is alert, dressed in hospital clothes, laying in bed, very sleepy Speech: slow rate, normal tone and low volume. Language skills are normal Thought processes including: intact. Thought content: Continues to report suicidal ideation, still intense, but a little less frequent Description of abnormal or psychotic thoughts: Denies AV hallucinations, denies thought delusions, admits to passive and sometimes active suicidal ideation, de nies homicidal ideation Judgment: Poor. Insight: limited. Orientation: x 3. Recent and remote memory: intact. Attention span and concentration: good. Language: good. Fund of knowledge: average. Mood: depressed. Affect: depressed. DIAGNOSES: 1. Major Depressive disorder, recurrent, severe 2. Alcohol use disorder. 3. R/O cluster B personality disorder ASSESSMENT: Patient continues to be depressed, he still has suicidal thoughts, he is trying to minimize his symptoms, he is very sleepy possibly secondary to his medications. I believe the patient is still at risk and he still needs to be on a 1:1. He is going to go to educationl groups only so that he can't grab s cissors or any other item that he would be able to use against himself and risk his life. MANAGEMENT PLAN: 1.Continue on a 1:1. He is at high risk for suicide, he needs to be on a sitter. 2. Venlafaxine 75 mgs PO daily 3. Seroquel 150 mgs PO QHS 4. Levothyroxine 25 mcg Po daily TIME SPENT: 35 minutes. Vital Signs Vital Signs Date Time Temp Pulse Resp B/P (MAP) Pulse Ox O2 Delivery O2 Flow Rate FiO2 03/29/18 07:13 99.0 85 16 147/89 (108) 03/28/18 06:43 Room Air 03/26/18 11:44 98 Current Medications Current Medications Acetaminophen (Tylenol Tab) 650 mg Q6HP PRN PO HEADACHE or DISCOMFORT Last administered on 03/28/18at 11:40; Start 03/26/18 at 04:30 Al Hydrox/Mg Hydrox/Simethicone (Mylanta) 30 ml Q4HP PRN PO HEARTBURN/INDIGESTION; Start 03/26/18 at 04:30 Folic Acid (Folic Acid) 1 mg DAILY PO Last administered on 03/29/18at 09:56; Start 03/26/18 at 09:00 Home Med (Med Rec Complete!) ASDIRECTED XX ; Start 03/26/18 at 05:15; Stop 03/26/18 at 05:15; Status DC Levothyroxine Sodium (Synthroid) 25 mcg DAILY@06 PO Last administered on 03/29/18at 06:33; Start 03/27/18 at 06:00 Lorazepam (Ativan) 1 mg STAT STAT IM Last administered on 03/26/18at 15:15; Start 03/26/18 at 15:00; Stop 03/26/18 at 15:03; Status DC Lorazepam (Ativan) 2 mg ASDIRECTED PRN PO SEE PROTOCOL; Start 03/26/18 at 04:30; Status Cancel Magnesium Hydroxide (Milk Of Magnesia) 30 ml DAILYPRN PRN PO CONSTIPATION; Start 03/26/18 at 04:30 Multivitamins (Theragram-M) 1 tab DAILY PO Last administered on 03/29/18at 09:56; Start 03/26/18 at 09:00 Olanzapine (ZyPREXA ZYDIS) 5 mg Q4HP PRN PO ANXIETY/AGITATION; Start 03/27/18 at 19:30 Olanzapine (ZyPREXA ZYDIS) 5 mg Q6HP PRN PO ANXIETY/AGITATION; Start 03/26/18 at 15:00; Stop 03/26/18 at 15:08; Status DC Olanzapine (ZyPREXA ZYDIS) 10 mg STAT STAT PO Last administered on 03/28/18at 14:46; Start 03/28/18 at 14:40; Stop 03/28/18 at 14:41; Status DC Quetiapine Fumarate (SEROquel) 150 mg QHS PO Last administered on 03/28/18at 22:00; Start 03/26/18 at 21:00 Thiamine HCl (Thiamine HCl) 100 mg BID PO Last administered on 03/28/18at 22:00; Start 03/26/18 at 09:00; Stop 03/29/18 at 08:59; Status DC Trazodone HCl (Desyrel) 50 mg QHSP PRN PO INSOMNIA; Start 03/26/18 at 04:30; Stop 03/26/18 at 20:49; Status DC Trazodone HCl (Desyrel) 50 mg QHSP PRN PO INSOMNIA Last administered on 03/27/18at 20:08; Start 03/27/18 at 19:30 Venlafaxine HCl (Effexor Xr) 37.5 mg QHS PO Last administered on 03/27/18at 20:10; Start 03/26/18 at 21:00; Stop 03/28/18 at 14:32; Status DC Venlafaxine HCl (Effexor Xr) 75 mg QHS PO Last administered on 03/28/18at 22:00; Start 03/28/18 at 21:00 Allergies Coded Allergies: No Known Allergies (Unverified , 03/25/18) DARREN CANNON MD Mar 29, 2018 14:32
[2018-03-29 18:00] VITALS: BP 131/80
[2018-03-29] MEDS: OLANZapine ORAL DISINTEGRATING TAB 5MG PO SCH (18:41)
[2018-03-29] MEDS: QUEtiapine FUMARATE 50 MG TAB PO SCH (21:54)
[2018-03-29] MEDS: VENLAFAXINE **XR** 75MG CAPSULE PO SCH (21:55)
[2018-03-30 06:33] VITALS: BP 129/71
[2018-03-30] MEDS: OLANZapine ORAL DISINTEGRATING TAB 5MG PO SCH ×2 (06:42)
[2018-03-30] MEDS: LEVOTHYROXINE 25MCG TABLET (0.025MG) PO SCH (06:42)
[2018-03-30] MEDS: MULTIVITAMINS/MINERALS THERAP 1 TAB PO SCH (09:26)
[2018-03-30] MEDS: FOLIC ACID 1 MG TAB PO SCH (09:26)
[2018-03-30] MEDS ORDERED: OLANZapine ORAL DISINTEGRATING TAB 5MG PO PRN (10:45)
--- NOTE | 2018-03-30 14:02 | MHIPNPDOC ---
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 PT with hx of depression as well and prior admissions to [facility]. Pt is now clinically sober, appears depressed, poor eye contact, initially states he does not know why he is here but then admits to possibly making suicidal comments to a friend that was with him in his room earlier. Pt admits to feeling depressed due to numerous stressors, reports he is getting , he is being "kicked out of the [employer]", does not see a future for himself because things are falling through at home, and feels he is looked at as "one of the undesirables" at [place]. When asked if he is feeling suicidal pt replies "well not here",when asked if he can maintain his safety if he is d/c'd back to [place] he replies "I don't know". Pt reports prior attempts at self harm, was stopped by his Sgt. when he tried to cut self, also reports attempting to cut wrist with "paper clip while I was in [facility]". PT also reports thoughts of "driving my car into the [place]". Pt denies HI, denies AH/VH, states he has been going to [facility] and [facility] however continues to drink daily to intoxication, denies any drug use" VITAL SIGNS: See below. NEW TEST RESULTS: See below CURRENT MEDICATIONS: See below. MENTAL STATUS EXAMINATION: Patient is a 27 year old male, who is alert, dressed in hospital clothes, laying in bed, very sleepy but was able to sit up and was asking when was he going to leave. Speech: slow rate, normal tone and low volume. Language skills are normal Thought processes including: intact. Thought content: Continues to report suicidal ideation and depression but is less intense and frequent Description of abnormal or psychotic thoughts: Denies AV hallucinations, denies thought delusions, admits to passive and sometimes active suicidal ideation, denies homicidal ideation Judgment: Poor. Insight: poor Orientation: x 3. Recent and remote memory: intact. Attention span and concentration: good. Language: good. Fund of knowledge: average. Mood: depressed. Affect: depressed. DIAGNOSES: 1. Major Depressive disorder, recurrent, severe 2. Alcohol use disorder. 3. R/O cluster B personality disorder ASSESSMENT: Patient has been very sleepy because he has been receiving Zyprexa, scheduled because he was very agitated and had plans to kill himslef. he is going to be receiving it PRN. I spoke with him about going to groups now that he is not going to be that sleepy. He will be on a one:One until he is not longer suicidal. MANAGEMENT PLAN: 1.Continue on a 1:1. He is at high risk for suicide, he needs to be on a sitter. 2. Venlafaxine 75 mgs PO daily 3. Seroquel 150 mgs PO QHS 4. Levothyroxine 25 mcg Po daily TIME SPENT: 15 minutes. Vital Signs Vital Signs Date Time Temp Pulse Resp B/P (MAP) Pulse Ox O2 Delivery O2 Flow Rate FiO2 03/30/18 06:33 98.0 98 129/71 (90) 03/29/18 18:00 16 03/28/18 06:43 Room Air 03/26/18 11:44 98 Current Medications Current Medications Acetaminophen (Tylenol Tab) 650 mg Q6HP PRN PO HEADACHE or DISCOMFORT Last administered on 03/28/18at 11:40; Start 03/26/18 at 04:30 Al Hydrox/Mg Hydrox/Simethicone (Mylanta) 30 ml Q4HP PRN PO HEARTBURN/INDIGESTION; Start 03/26/18 at 04:30 Folic Acid (Folic Acid) 1 mg DAILY PO Last administered on 03/30/18at 09:26; Start 03/26/18 at 09:00 Home Med (Med Rec Complete!) ASDIRECTED XX ; Start 03/26/18 at 05:15; Stop 03/26/18 at 05:15; Status DC Levothyroxine Sodium (Synthroid) 25 mcg DAILY@06 PO Last administered on 03/30/18at 06:42; Start 03/27/18 at 06:00 Lorazepam (Ativan) 1 mg STAT STAT IM Last administered on 03/26/18at 15:15; Start 03/26/18 at 15:00; Stop 03/26/18 at 15:03; Status DC Lorazepam (Ativan) 2 mg ASDIRECTED PRN PO SEE PROTOCOL; Start 03/26/18 at 04:30; Status Cancel Magnesium Hydroxide (Milk Of Magnesia) 30 ml DAILYPRN PRN PO CONSTIPATION; Start 03/26/18 at 04:30 Multivitamins (Theragram-M) 1 tab DAILY PO Last administered on 03/30/18at 09:26; Start 03/26/18 at 09:00 Olanzapine (ZyPREXA ZYDIS) 5 mg Q4HP PRN PO ANXIETY/AGITATION Last administered on 03/29/18at 16:13; Start 03/27/18 at 19:30; Stop 03/29/18 at 18:21; Status DC Olanzapine (ZyPREXA ZYDIS) 5 mg Q6H PO Last administered on 03/30/18at 06:42; Start 03/29/18 at 18:00; Stop 03/30/18 at 10:43; Status DC Olanzapine (ZyPREXA ZYDIS) 5 mg Q6HP PRN PO ANXIETY/AGITATION; Start 03/26/18 at 15:00; Stop 03/26/18 at 15:08; Status DC Olanzapine (ZyPREXA ZYDIS) 5 mg Q6HP PRN PO ANXIETY/AGITATION; Start 03/30/18 at 10:45 Olanzapine (ZyPREXA ZYDIS) 10 mg STAT STAT PO Last administered on 03/28/18at 14:46; Start 03/28/18 at 14:40; Stop 03/28/18 at 14:41; Status DC Quetiapine Fumarate (SEROquel) 150 mg QHS PO Last administered on 03/29/18at 21:54; Start 03/26/18 at 21:00 Thiamine HCl (Thiamine HCl) 100 mg BID PO Last administered on 03/28/18at 22:00; Start 03/26/18 at 09:00; Stop 03/29/18 at 08:59; Status DC Trazodone HCl (Desyrel) 50 mg QHSP PRN PO INSOMNIA; Start 03/26/18 at 04:30; Stop 03/26/18 at 20:49; Status DC Trazodone HCl (Desyrel) 50 mg QHSP PRN PO INSOMNIA Last administered on 03/27/18at 20:08; Start 03/27/18 at 19:30 Venlafaxine HCl (Effexor Xr) 37.5 mg QHS PO Last administered on 03/27/18at 20:10; Start 03/26/18 at 21:00; Stop 03/28/18 at 14:32; Status DC Venlafaxine HCl (Effexor Xr) 75 mg QHS PO Last administered on 03/29/18at 21:55; Start 03/28/18 at 21:00 Allergies Coded Allergies: No Known Allergies (Unverified , 03/25/18) DARREN CANNON MD Mar 30, 2018 14:02
[2018-03-30 18:00] VITALS: BP 129/83
[2018-03-30] MEDS: VENLAFAXINE **XR** 75MG CAPSULE PO SCH (21:04)
[2018-03-30] MEDS: QUEtiapine FUMARATE 50 MG TAB PO SCH (21:05)
[2018-03-31] MEDS: LEVOTHYROXINE 25MCG TABLET (0.025MG) PO SCH (06:06)
[2018-03-31 06:41] VITALS: BP 124/81
[2018-03-31] MEDS: FOLIC ACID 1 MG TAB PO SCH (08:52)
[2018-03-31] MEDS: MULTIVITAMINS/MINERALS THERAP 1 TAB PO SCH (08:52)
[2018-03-31] MEDS: NICOTINE POLACRILEX 2 MG GUM PO PRN ×2 (10:32→16:10)
[2018-03-31 18:28] VITALS: BP 159/96
--- NOTE | 2018-03-31 18:35 | MHIPNPDOC ---
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 PT with hx of depression as well and prior admissions to [facility]. Pt is now clinically sober, appears depressed, poor eye contact, initially states he does not know why he is here but then admits to possibly making suicidal comments to a friend that was with him in his room earlier. Pt admits to feeling depressed due to numerous stressors, reports he is getting , he is being "kicked out of the [employer]", does not see a future for himself because things are falling through at home, and feels he is looked at as "one of the undesirables" at [place]. When asked if he is feeling suicidal pt replies "well not here",when asked if he can maintain his safety if he is d/c'd back to [place] he replies "I don't know". Pt reports prior attempts at self harm, was stopped by his Sgt. when he tried to cut self, also reports attempting to cut wrist with "paper clip while I was in [facility]". PT also reports thoughts of "driving my car into the [place]". Pt denies HI, denies AH/VH, states he has been going to [facility] and [place] however continues to drink daily to intoxication, denies any drug use" VITAL SIGNS: See below. NEW TEST RESULTS: See below CURRENT MEDICATIONS: See below. MENTAL STATUS EXAMINATION: Patient is a 27 year old male, who is alert, dressed in hospital clothes, laying in bed, very sleepy but was able to sit up and was asking when was he going to leave. Speech: slow rate, normal tone and low volume. Language skills are normal Thought processes including: intact. Thought content: Continues to report suicidal ideation and depression but is less intense and frequent Description of abnormal or psychotic thoughts: Denies AV hallucinations, denies thought delusions, admits to passive and sometimes active suicidal ideation, denies homicidal ideation Judgment: Poor. Insight: limited Orientation: x 3. Recent and remote memory: intact. Attention span and concentration: good. Language: good. Fund of knowledge: average. Mood: depressed. Affect: depressed. DIAGNOSES: 1. Major Depressive disorder, recurrent, severe 2. Alcohol use disorder. 3. R/O cluster B personality disorder ASSESSMENT: Андрей's mental status exam has not changed that much but he has been more active and is less hopeless today. tomorrow he will leave on a Pass with his VANESSA to run some errands, pack his belongings and get ready for his emt intermediate treatment that is starting next week when he will be transferred to a long tert treatment facility, possibly in [place]. MANAGEMENT PLAN: 1. Zyprexa 5 mgs PO Q6HP anxiety or agitation 2. Venlafaxine 112.5 mgs PO daily 3. Seroquel 150 mgs PO QHS 4. Levothyroxine 25 mcg Po daily TIME SPENT: 15 minutes. Vital Signs Vital Signs Date Time Temp Pulse Resp B/P (MAP) Pulse Ox O2 Delivery O2 Flow Rate FiO2 03/31/18 06:41 98.1 84 14 124/81 (95) Room Air 03/26/18 11:44 98 Current Medications Current Medications Acetaminophen (Tylenol Tab) 650 mg Q6HP PRN PO HEADACHE or DISCOMFORT Last administered on 03/28/18at 11:40; Start 03/26/18 at 04:30 Al Hydrox/Mg Hydrox/Simethicone (Mylanta) 30 ml Q4HP PRN PO HEARTBURN/INDIGESTION; Start 03/26/18 at 04:30 Folic Acid (Folic Acid) 1 mg DAILY PO Last administered on 03/31/18at 08:52; Start 03/26/18 at 09:00 Home Med (Med Rec Complete!) ASDIRECTED XX ; Start 03/26/18 at 05:15; Stop 03/26/18 at 05:15; Status DC Levothyroxine Sodium (Synthroid) 25 mcg DAILY@06 PO Last administered on 03/31/18at 06:06; Start 03/27/18 at 06:00 Lorazepam (Ativan) 1 mg STAT STAT IM Last administered on 03/26/18at 15:15; Start 03/26/18 at 15:00; Stop 03/26/18 at 15:03; Status DC Lorazepam (Ativan) 2 mg ASDIRECTED PRN PO SEE PROTOCOL; Start 03/26/18 at 04:30; Status Cancel Magnesium Hydroxide (Milk Of Magnesia) 30 ml DAILYPRN PRN PO CONSTIPATION; Start 03/26/18 at 04:30 Multivitamins (Theragram-M) 1 tab DAILY PO Last administered on 03/31/18at 08:52; Start 03/26/18 at 09:00 Nicotine (Nicorette) 2 mg Q2HP PRN PO NICOTINE WITHDRAWAL Last administered on 03/31/18at 16:10; Start 03/31/18 at 10:15 Olanzapine (ZyPREXA ZYDIS) 5 mg Q4HP PRN PO ANXIETY/AGITATION Last administered on 03/29/18at 16:13; Start 03/27/18 at 19:30; Stop 03/29/18 at 18:21; Status DC Olanzapine (ZyPREXA ZYDIS) 5 mg Q6H PO Last administered on 03/30/18at 06:42; Start 03/29/18 at 18:00; Stop 03/30/18 at 10:43; Status DC Olanzapine (ZyPREXA ZYDIS) 5 mg Q6HP PRN PO ANXIETY/AGITATION; Start 03/26/18 at 15:00; Stop 03/26/18 at 15:08; Status DC Olanzapine (ZyPREXA ZYDIS) 5 mg Q6HP PRN PO ANXIETY/AGITATION Last administered on 03/31/18at 08:56; Start 03/30/18 at 10:45 Olanzapine (ZyPREXA ZYDIS) 10 mg STAT STAT PO Last administered on 03/28/18at 14:46; Start 03/28/18 at 14:40; Stop 03/28/18 at 14:41; Status DC Quetiapine Fumarate (SEROquel) 150 mg QHS PO Last administered on 03/30/18at 21:05; Start 03/26/18 at 21:00 Thiamine HCl (Thiamine HCl) 100 mg BID PO Last administered on 03/28/18at 22:00; Start 03/26/18 at 09:00; Stop 03/29/18 at 08:59; Status DC Trazodone HCl (Desyrel) 50 mg QHSP PRN PO INSOMNIA; Start 03/26/18 at 04:30; Stop 03/26/18 at 20:49; Status DC Trazodone HCl (Desyrel) 50 mg QHSP PRN PO INSOMNIA Last administered on 03/27/18at 20:08; Start 03/27/18 at 19:30 Venlafaxine HCl (Effexor Xr) 37.5 mg QHS PO Last administered on 03/27/18at 20:10; Start 03/26/18 at 21:00; Stop 03/28/18 at 14:32; Status DC Venlafaxine HCl (Effexor Xr) 75 mg QHS PO Last administered on 03/30/18at 21:04; Start 03/28/18 at 21:00 Allergies Coded Allergies: No Known Allergies (Unverified , 03/25/18) DARREN CANNON MD Mar 31, 2018 18:34
[2018-03-31] MEDS: QUEtiapine FUMARATE 50 MG TAB PO SCH (20:43)
[2018-03-31] MEDS ORDERED: VENLAFAXINE **XR** 37.5 MG CAPSULE PO SCH (21:00)
[2018-04-01] MEDS: LEVOTHYROXINE 25MCG TABLET (0.025MG) PO SCH (06:15)
[2018-04-01 07:10] VITALS: BP 145/82
[2018-04-01] MEDS: MULTIVITAMINS/MINERALS THERAP 1 TAB PO SCH (08:31)
[2018-04-01] MEDS: FOLIC ACID 1 MG TAB PO SCH (08:31)
[2018-04-01] MEDS: NICOTINE POLACRILEX 2 MG GUM PO PRN (08:32)
[2018-04-01 18:00] VITALS: BP 146/85
--- NOTE | 2018-04-01 19:01 | MHIPNPDOC ---
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 PT with hx of depression as well and prior admissions to [facility]. Pt is now clinically sober, appears depressed, poor eye contact, initially states he does not know why he is here but then admits to possibly making suicidal comments to a friend that was with him in his room earlier. Pt admits to feeling depressed due to numerous stressors, reports he is getting , he is being "kicked out of the [employer]", does not see a future for himself because things are falling through at home, and feels he is looked at as "one of the undesirables" at [place]. When asked if he is feeling suicidal pt replies "well not here",when asked if he can maintain his safety if he is d/c'd back to [place] he replies "I don't know". Pt reports prior attempts at self harm, was stopped by his Sgt. when he tried to cut self, also reports attempting to cut wrist with "paper clip while I was in longterm". PT also reports thoughts of "driving my car into the [place]". Pt denies HI, denies AH/VH, states he has been going to [facility] and [facility] however continues to drink daily to intoxication, denies any drug use" VITAL SIGNS: See below. NEW TEST RESULTS: See below CURRENT MEDICATIONS: See below. MENTAL STATUS EXAMINATION: Patient is a 27 year old male, who is alert, dressed in hospital clothes, pleasant Speech: normal rhythm, normal tone and normal volume. Language skills are normal Thought processes including: intact. Thought content: He denies SI but reports having depressive/anxious thoughts Description of abnormal or psychotic thoughts: Denies AV hallucinations, denies thought delusions, denies homicidal ideation, denies SI Judgment: Poor. Insight: limited Orientation: x 3. Recent and remote memory: intact. Attention span and concentration: good. Language: good. Fund of knowledge: average. Mood: depressed. Affect: depressed. DIAGNOSES: 1. Major Depressive disorder, recurrent, severe 2. Alcohol use disorder. 3. R/O cluster B personality disorder ASSESSMENT: Андрей's VANESSA never came to pick him up and never responded to [employer] Product Analyst that called several times since we needed to know at what time was he going to leave on a pass. He says today that he is not suicidal but he is depressed, he is bored, because he doesn't like the groups in here but he has been reading and he likes doing that. He requests not to be on Venlafaxine because he has noticed he has been bruising since he started taking it, so this medication is going to b tapered down and he will be started on Paxil, since he says he has never been on it. He will be on Zyprexa 5 mgs PO q6h but scheduled, not PRN. MANAGEMENT PLAN: 1. Zyprexa 5 mgs PO Q6H for anxiety or agitation 2. Venlafaxine 37.5 mgs PO qhs 3. Seroquel 150 mgs PO QHS 4. Levothyroxine 25 mcg Po daily Paxil 20 mgs PO QAM TIME SPENT: 40 minutes. Vital Signs Vital Signs Date Time Temp Pulse Resp B/P (MAP) Pulse Ox O2 Delivery O2 Flow Rate FiO2 04/01/18 07:10 98.1 86 12 145/82 (103) Room Air 03/26/18 11:44 98 Current Medications Current Medications Acetaminophen (Tylenol Tab) 650 mg Q6HP PRN PO HEADACHE or DISCOMFORT Last administered on 03/28/18at 11:40; Start 03/26/18 at 04:30 Al Hydrox/Mg Hydrox/Simethicone (Mylanta) 30 ml Q4HP PRN PO HEARTBURN/INDIGESTION; Start 03/26/18 at 04:30 Folic Acid (Folic Acid) 1 mg DAILY PO Last administered on 04/01/18at 08:31; Start 03/26/18 at 09:00 Home Med (Med Rec Complete!) ASDIRECTED XX ; Start 03/26/18 at 05:15; Stop 03/26/18 at 05:15; Status DC Levothyroxine Sodium (Synthroid) 25 mcg DAILY@06 PO Last administered on 04/01/18at 06:15; Start 03/27/18 at 06:00 Lorazepam (Ativan) 1 mg STAT STAT IM Last administered on 03/26/18at 15:15; Start 03/26/18 at 15:00; Stop 03/26/18 at 15:03; Status DC Lorazepam (Ativan) 2 mg ASDIRECTED PRN PO SEE PROTOCOL; Start 03/26/18 at 04:30; Status Cancel Magnesium Hydroxide (Milk Of Magnesia) 30 ml DAILYPRN PRN PO CONSTIPATION; Start 03/26/18 at 04:30 Multivitamins (Theragram-M) 1 tab DAILY PO Last administered on 04/01/18at 08:31; Start 03/26/18 at 09:00 Nicotine (Nicorette) 2 mg Q2HP PRN PO NICOTINE WITHDRAWAL Last administered on 04/01/18at 08:32; Start 03/31/18 at 10:15 Olanzapine (ZyPREXA ZYDIS) 5 mg Q4HP PRN PO ANXIETY/AGITATION Last administered on 03/29/18at 16:13; Start 03/27/18 at 19:30; Stop 03/29/18 at 18:21; Status DC Olanzapine (ZyPREXA ZYDIS) 5 mg Q6H PO Last administered on 03/30/18at 06:42; Start 03/29/18 at 18:00; Stop 03/30/18 at 10:43; Status DC Olanzapine (ZyPREXA ZYDIS) 5 mg Q6HP PRN PO ANXIETY/AGITATION; Start 03/26/18 at 15:00; Stop 03/26/18 at 15:08; Status DC Olanzapine (ZyPREXA ZYDIS) 5 mg Q6HP PRN PO ANXIETY/AGITATION Last administered on 03/31/18at 08:56; Start 03/30/18 at 10:45 Olanzapine (ZyPREXA ZYDIS) 10 mg STAT STAT PO Last administered on 03/28/18at 14:46; Start 03/28/18 at 14:40; Stop 03/28/18 at 14:41; Status DC Quetiapine Fumarate (SEROquel) 150 mg QHS PO Last administered on 03/31/18at 20:43; Start 03/26/18 at 21:00 Thiamine HCl (Thiamine HCl) 100 mg BID PO Last administered on 03/28/18at 22:00; Start 03/26/18 at 09:00; Stop 03/29/18 at 08:59; Status DC Trazodone HCl (Desyrel) 50 mg QHSP PRN PO INSOMNIA; Start 03/26/18 at 04:30; Stop 03/26/18 at 20:49; Status DC Trazodone HCl (Desyrel) 50 mg QHSP PRN PO INSOMNIA Last administered on 03/27/18at 20:08; Start 03/27/18 at 19:30 Venlafaxine HCl (Effexor Xr) 37.5 mg QHS PO Last administered on 03/27/18at 20:10; Start 03/26/18 at 21:00; Stop 03/28/18 at 14:32; Status DC Venlafaxine HCl (Effexor Xr) 75 mg QHS PO Last administered on 03/30/18at 21:04; Start 03/28/18 at 21:00; Stop 03/31/18 at 18:30; Status DC Venlafaxine HCl (Effexor Xr) 112.5 mg QHS PO Last administered on 03/31/18at 20:42; Start 03/31/18 at 21:00 Allergies Coded Allergies: No Known Allergies (Unverified , 03/25/18) DARREN CANNON MD Apr 01, 2018 18:20
[2018-04-01] MEDS: PROPRANOLOL 20 MG TAB PO SCH (19:40)
[2018-04-01] MEDS: QUEtiapine FUMARATE 50 MG TAB PO SCH (19:40)
[2018-04-01] MEDS: OLANZapine ORAL DISINTEGRATING TAB 5MG PO SCH (19:40)
[2018-04-02] MEDS: LEVOTHYROXINE 25MCG TABLET (0.025MG) PO SCH (06:16)
[2018-04-02] MEDS: OLANZapine ORAL DISINTEGRATING TAB 5MG PO SCH ×4 (06:16→17:04)
[2018-04-02 06:37] VITALS: BP 136/82
[2018-04-02] MEDS: VENLAFAXINE **XR** 37.5 MG CAPSULE PO SCH (08:52)
[2018-04-02] MEDS: PARoxetine 20 MG TAB PO SCH (08:52)
[2018-04-02] MEDS: FOLIC ACID 1 MG TAB PO SCH (08:52)
[2018-04-02] MEDS: MULTIVITAMINS/MINERALS THERAP 1 TAB PO SCH (08:52)
[2018-04-02] MEDS: PROPRANOLOL 20 MG TAB PO SCH ×3 (08:52→23:15)
[2018-04-02] MEDS ORDERED: PARoxetine 20 MG TAB PO SCH (09:00)
[2018-04-02 18:00] VITALS: BP 132/77
[2018-04-02] MEDS: QUEtiapine FUMARATE 50 MG TAB PO SCH (23:15)
[2018-04-03] MEDS: OLANZapine ORAL DISINTEGRATING TAB 5MG PO SCH ×4 (00:15→17:29)
[2018-04-03] MEDS: LEVOTHYROXINE 25MCG TABLET (0.025MG) PO SCH (06:36)
[2018-04-03 06:43] VITALS: BP 135/82
[2018-04-03] MEDS: MULTIVITAMINS/MINERALS THERAP 1 TAB PO SCH (08:55)
[2018-04-03] MEDS: PROPRANOLOL 20 MG TAB PO SCH ×3 (08:55→21:51)
[2018-04-03] MEDS: PARoxetine 20 MG TAB PO SCH (08:55)
[2018-04-03] MEDS: VENLAFAXINE **XR** 37.5 MG CAPSULE PO SCH (08:55)
[2018-04-03] MEDS: FOLIC ACID 1 MG TAB PO SCH (08:55)
[2018-04-03] MEDS: NICOTINE POLACRILEX 2 MG GUM PO PRN (12:55)
[2018-04-03 18:00] VITALS: BP 131/71
[2018-04-03] MEDS: QUEtiapine FUMARATE 50 MG TAB PO SCH (21:51)
[2018-04-04] MEDS: OLANZapine ORAL DISINTEGRATING TAB 5MG PO SCH ×5 (06:19→23:13)
[2018-04-04] MEDS: LEVOTHYROXINE 25MCG TABLET (0.025MG) PO SCH (06:19)
[2018-04-04 06:47] VITALS: BP 132/74
[2018-04-04] MEDS: FOLIC ACID 1 MG TAB PO SCH (08:51)
[2018-04-04] MEDS: VENLAFAXINE **XR** 37.5 MG CAPSULE PO SCH (08:51)
[2018-04-04] MEDS: MULTIVITAMINS/MINERALS THERAP 1 TAB PO SCH (08:51)
[2018-04-04] MEDS: PARoxetine 20 MG TAB PO SCH (08:51)
[2018-04-04] MEDS: PROPRANOLOL 20 MG TAB PO SCH ×3 (08:51→21:43)
--- NOTE | 2018-04-04 17:12 | MHIPNPDOC ---
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 PT with hx of depression as well and prior admissions to [facility]. Pt is now clinically sober, appears depressed, poor eye contact, initially states he does not know why he is here but then admits to possibly making suicidal comments to a friend that was with him in his room earlier. Pt admits to feeling depressed due to numerous stressors, reports he is getting , he is being "kicked out of the [employer]", does not see a future for himself because things are falling through at home, and feels he is looked at as "one of the undesirables" at [place]. When asked if he is feeling suicidal pt replies "well not here",when asked if he can maintain his safety if he is d/c'd back to [place] he replies "I don't know". Pt reports prior attempts at self harm, was stopped by his Sgt. when he tried to cut self, also reports attempting to cut wrist with "paper clip while I was in [employer]". PT also reports thoughts of "driving my car into the [place]". Pt denies HI, denies AH/VH, states he has been going to [facility] and [facility] however continues to drink daily to intoxication, denies any drug use" VITAL SIGNS: See below. NEW TEST RESULTS: See below CURRENT MEDICATIONS: See below. MENTAL STATUS EXAMINATION: Patient is a 27 year old male, who is alert, dressed in hospital clothes, pleasant Speech: normal rhythm, normal tone and normal volume. Language skills are normal Thought processes including: intact. Thought content: He denies SI but reports having depressive/anxious thoughts Description of abnormal or psychotic thoughts: Denies AV hallucinations, denies thought delusions, denies homicidal ideation, denies SI Judgment: Poor. Insight: limited Orientation: x 3. Recent and remote memory: intact. Attention span and concentration: good. Language: good. Fund of knowledge: average. Mood: depressed. Affect: depressed. DIAGNOSES: 1. Major Depressive disorder, recurrent, severe 2. Alcohol use disorder. 3. R/O cluster B personality disorder ASSESSMENT: Андрей is leaving tomorrow on a pass. His VANESSA will come to pick him up at 9:30 a.m. Patient is supposed to leave during this week to go to [place] for correction treatment because he is high risk for suicide. He was frustrated this morning because he is saying that his medications are not the same he used to have before, but the only one he is not receiving is Atarax, because he reques daisy not to be on it, he felt it didn't work and instead, I started him on Zyprexa. His mental status examination has not changed much since last seen on Wednesday. MANAGEMENT PLAN: 1. Zyprexa 5 mgs PO Q6H for anxiety or agitation 2. Venlafaxine 37.5 mgs PO qhs 3. Seroquel 150 mgs PO QHS 4. Levothyroxine 25 mcg Po daily 5. Paxil 20 mgs PO QAM TIME SPENT: 25 minutes. Vital Signs Vital Signs Date Time Temp Pulse Resp B/P (MAP) Pulse Ox O2 Delivery O2 Flow Rate FiO2 04/04/18 15:29 80 138/74 04/04/18 06:47 97.7 14 Room Air Current Medications Current Medications Acetaminophen (Tylenol Tab) 650 mg Q6HP PRN PO HEADACHE or DISCOMFORT Last administered on 03/28/18at 11:40; Start 03/26/18 at 04:30 Al Hydrox/Mg Hydrox/Simethicone (Mylanta) 30 ml Q4HP PRN PO HEARTBURN/INDIGESTION; Start 03/26/18 at 04:30 Folic Acid (Folic Acid) 1 mg DAILY PO Last administered on 04/04/18at 08:51; Start 03/26/18 at 09:00 Home Med (Med Rec Complete!) ASDIRECTED XX ; Start 03/26/18 at 05:15; Stop 03/26/18 at 05:15; Status DC Levothyroxine Sodium (Synthroid) 25 mcg DAILY@06 PO Last administered on 04/04/18at 06:19; Start 03/27/18 at 06:00 Lorazepam (Ativan) 1 mg STAT STAT IM Last administered on 03/26/18at 15:15; Start 03/26/18 at 15:00; Stop 03/26/18 at 15:03; Status DC Lorazepam (Ativan) 2 mg ASDIRECTED PRN PO SEE PROTOCOL; Start 03/26/18 at 04:30; Status Cancel Magnesium Hydroxide (Milk Of Magnesia) 30 ml DAILYPRN PRN PO CONSTIPATION; Start 03/26/18 at 04:30 Multivitamins (Theragram-M) 1 tab DAILY PO Last administered on 04/04/18at 08:51; Start 03/26/18 at 09:00 Nicotine (Nicorette) 2 mg Q2HP PRN PO NICOTINE WITHDRAWAL Last administered on 04/03/18at 12:55; Start 03/31/18 at 10:15 Olanzapine (ZyPREXA ZYDIS) 5 mg Q4HP PRN PO ANXIETY/AGITATION Last administered on 03/29/18at 16:13; Start 03/27/18 at 19:30; Stop 03/29/18 at 18:21; Status DC Olanzapine (ZyPREXA ZYDIS) 5 mg Q6H PO Last administered on 03/30/18at 06:42; Start 03/29/18 at 18:00; Stop 03/30/18 at 10:43; Status DC Olanzapine (ZyPREXA ZYDIS) 5 mg Q6H PO Last administered on 04/04/18at 12:09; Start 04/01/18 at 18:00 Olanzapine (ZyPREXA ZYDIS) 5 mg Q6HP PRN PO ANXIETY/AGITATION; Start 03/26/18 at 15:00; Stop 03/26/18 at 15:08; Status DC Olanzapine (ZyPREXA ZYDIS) 5 mg Q6HP PRN PO ANXIETY/AGITATION Last administered on 03/31/18at 08:56; Start 03/30/18 at 10:45; Stop 04/01/18 at 18:51; Status DC Olanzapine (ZyPREXA ZYDIS) 10 mg STAT STAT PO Last administered on 03/28/18at 14:46; Start 03/28/18 at 14:40; Stop 03/28/18 at 14:41; Status DC Paroxetine HCl (PAXil) 20 mg DAILY PO ; Start 04/02/18 at 09:00; Stop 04/02/18 at 09:00; Status DC Paroxetine HCl (PAXil) 20 mg QAM PO Last administered on 04/04/18at 08:51; Start 04/02/18 at 09:00; Stop 04/04/18 at 10:25; Status DC Paroxetine HCl (PAXil) 30 mg QAM PO ; Start 04/05/18 at 09:00 Propranolol HCl (Inderal) 20 mg TID PO Last administered on 04/04/18at 15:29; Start 04/01/18 at 21:00 Quetiapine Fumarate (SEROquel) 150 mg QHS PO Last administered on 04/03/18at 21:51; Start 03/26/18 at 21:00 Thiamine HCl (Thiamine HCl) 100 mg BID PO Last administered on 03/28/18at 22:00; Start 03/26/18 at 09:00; Stop 03/29/18 at 08:59; Status DC Trazodone HCl (Desyrel) 50 mg QHSP PRN PO INSOMNIA; Start 03/26/18 at 04:30; Stop 03/26/18 at 20:49; Status DC Trazodone HCl (Desyrel) 50 mg QHSP PRN PO INSOMNIA Last administered on 03/27/18at 20:08; Start 03/27/18 at 19:30 Venlafaxine HCl (Effexor Xr) 37.5 mg DAILY PO Last administered on 04/04/18at 08:51; Start 04/02/18 at 09:00; Stop 04/04/18 at 10:22; Status DC Venlafaxine HCl (Effexor Xr) 37.5 mg QHS PO Last administered on 03/27/18at 20:10; Start 03/26/18 at 21:00; Stop 03/28/18 at 14:32; Status DC Venlafaxine HCl (Effexor Xr) 75 mg QHS PO Last administered on 03/30/18at 21:04; Start 03/28/18 at 21:00; Stop 03/31/18 at 18:30; Status DC Venlafaxine HCl (Effexor Xr) 112.5 mg QHS PO Last administered on 03/31/18at 20:42; Start 03/31/18 at 21:00; Stop 04/01/18 at 18:50; Status DC Allergies Coded Allergies: No Known Allergies (Unverified , 08/26/17) DARREN CANNON MD Apr 04, 2018 17:12
[2018-04-04 18:00] VITALS: BP 136/76
[2018-04-04] MEDS: QUEtiapine FUMARATE 50 MG TAB PO SCH (21:43)
[2018-04-05] MEDS: LEVOTHYROXINE 25MCG TABLET (0.025MG) PO SCH (06:17)
[2018-04-05] MEDS: OLANZapine ORAL DISINTEGRATING TAB 5MG PO SCH ×3 (06:17→17:27)
[2018-04-05 07:00] VITALS: BP 140/90
[2018-04-05] MEDS: PARoxetine 10MG TABLET PO SCH (08:38)
[2018-04-05] MEDS: MULTIVITAMINS/MINERALS THERAP 1 TAB PO SCH (08:38)
[2018-04-05] MEDS: FOLIC ACID 1 MG TAB PO SCH (08:38)
[2018-04-05] MEDS: NICOTINE POLACRILEX 2 MG GUM PO PRN (08:39)
[2018-04-05] MEDS: PROPRANOLOL 20 MG TAB PO SCH ×3 (08:39→20:25)
[2018-04-05 18:00] VITALS: BP 134/78
--- NOTE | 2018-04-05 18:26 | MHIPNPDOC ---
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 PT with hx of depression as well and prior admissions to [facility]. Pt is now clinically sober, appears depressed, poor eye contact, initially states he does not know why he is here but then admits to possibly making suicidal comments to a friend that was with him in his room earlier. Pt admits to feeling depressed due to numerous stressors, reports he is getting , he is being "kicked out of the [employer]", does not see a future for himself because things are falling through at home, and feels he is looked at as "one of the undesirables" at [place]. When asked if he is feeling suicidal pt replies "well not here",when asked if he can maintain his safety if he is d/c'd back to [place] he replies "I don't know". Pt reports prior attempts at self harm, was stopped by his Sgt. when he tried to cut self, also reports attempting to cut wrist with "paper clip while I was in snf". PT also reports thoughts of "driving my car into the [place]". Pt denies HI, denies AH/VH, states he has been going to [facility] and [place] however continues to drink daily to intoxication, denies any drug use" VITAL SIGNS: See below. NEW TEST RESULTS: See below CURRENT MEDICATIONS: See below. MENTAL STATUS EXAMINATION: Patient is a 27 year old male, who is alert, dressed in hospital clothes, pleasant Speech: normal rhythm, normal tone and normal volume. Language skills are normal Thought processes including: intact. Thought content: He denies SI, denies HI, denies AV hallucinations, denies thought delusions Description of abnormal or psychotic thoughts: Denies AV hallucinations, denies thought delusions, denies homicidal ideation, denies SI Judgment: poor Insight: limited Orientation: x 3. Recent and remote memory: intact. Attention span and concentration: good. Language: good. Fund of knowledge: average. Mood: depressed. Affect: depressed. DIAGNOSES: 1. Major Depressive disorder, recurrent, severe 2. Alcohol use disorder. 3. R/O cluster B personality disorder ASSESSMENT: The patient is improving, his mood is brighter because he went out today. MANAGEMENT PLAN: 1. Zyprexa 5 mgs PO Q6H for anxiety or agitation 2. Venlafaxine 37.5 mgs PO qhs 3. Seroquel 150 mgs PO QHS 4. Levothyroxine 25 mcg Po daily 5. Paxil 20 mgs PO QAM TIME SPENT: 25 minutes. Vital Signs Vital Signs Date Time Temp Pulse Resp B/P (MAP) Pulse Ox O2 Delivery O2 Flow Rate FiO2 04/05/18 15:29 78 140/80 04/05/18 07:00 97.1 16 Room Air Current Medications Current Medications Acetaminophen (Tylenol Tab) 650 mg Q6HP PRN PO HEADACHE or DISCOMFORT Last administered on 03/28/18at 11:40; Start 03/26/18 at 04:30 Al Hydrox/Mg Hydrox/Simethicone (Mylanta) 30 ml Q4HP PRN PO HEARTBURN/INDIGESTION; Start 03/26/18 at 04:30 Folic Acid (Folic Acid) 1 mg DAILY PO Last administered on 04/05/18at 08:38; Start 03/26/18 at 09:00 Home Med (Med Rec Complete!) ASDIRECTED XX ; Start 03/26/18 at 05:15; Stop 1 05/27/17 at 05:15; Status DC Levothyroxine Sodium (Synthroid) 25 mcg DAILY@06 PO Last administered on 04/05/18at 06:17; Start 03/27/18 at 06:00 Lorazepam (Ativan) 1 mg STAT STAT IM Last administered on 03/26/18at 15:15; Start 03/26/18 at 15:00; Stop 03/26/18 at 15:03; Status DC Lorazepam (Ativan) 2 mg ASDIRECTED PRN PO SEE PROTOCOL; Start 03/26/18 at 04:30; Status Cancel Magnesium Hydroxide (Milk Of Magnesia) 30 ml DAILYPRN PRN PO CONSTIPATION; Start 03/26/18 at 04:30 Multivitamins (Theragram-M) 1 tab DAILY PO Last administered on 04/05/18at 08:38; Start 03/26/18 at 09:00 Nicotine (Nicorette) 2 mg Q2HP PRN PO NICOTINE WITHDRAWAL Last administered on 04/05/18at 08:39; Start 03/31/18 at 10:15 Olanzapine (ZyPREXA ZYDIS) 5 mg Q4HP PRN PO ANXIETY/AGITATION Last administered on 03/29/18at 16:13; Start 03/27/18 at 19:30; Stop 03/29/18 at 18:21; Status DC Olanzapine (ZyPREXA ZYDIS) 5 mg Q6H PO Last administered on 03/30/18at 06:42; Start 03/29/18 at 18:00; Stop 03/30/18 at 10:43; Status DC Olanzapine (ZyPREXA ZYDIS) 5 mg Q6H PO Last administered on 04/05/18at 17:27; Start 04/01/18 at 18:00 Olanzapine (ZyPREXA ZYDIS) 5 mg Q6HP PRN PO ANXIETY/AGITATION; Start 03/26/18 at 15:00; Stop 03/26/18 at 15:08; Status DC Olanzapine (ZyPREXA ZYDIS) 5 mg Q6HP PRN PO ANXIETY/AGITATION Last administered on 03/31/18at 08:56; Start 03/30/18 at 10:45; Stop 04/01/18 at 18:51; Status DC Olanzapine (ZyPREXA ZYDIS) 10 mg STAT STAT PO Last administered on 03/28/18at 14:46; Start 03/28/18 at 14:40; Stop 03/28/18 at 14:41; Status DC Paroxetine HCl (PAXil) 20 mg DAILY PO ; Start 04/02/18 at 09:00; Stop 04/02/18 at 09:00; Status DC Paroxetine HCl (PAXil) 20 mg QAM PO Last administered on 04/04/18at 08:51; Start 04/02/18 at 09:00; Stop 04/04/18 at 10:25; Status DC Paroxetine HCl (PAXil) 30 mg QAM PO Last administered on 04/05/18at 08:38; Start 04/05/18 at 09:00 Propranolol HCl (Inderal) 20 mg TID PO Last administered on 04/05/18at 15:29; Start 04/01/18 at 21:00 Quetiapine Fumarate (SEROquel) 150 mg QHS PO Last administered on 04/04/18at 21:43; Start 03/26/18 at 21:00 Thiamine HCl (Thiamine HCl) 100 mg BID PO Last administered on 03/28/18at 22:00; Start 03/26/18 at 09:00; Stop 03/29/18 at 08:59; Status DC Trazodone HCl (Desyrel) 50 mg QHSP PRN PO INSOMNIA; Start 03/26/18 at 04:30; Stop 03/26/18 at 20:49; Status DC Trazodone HCl (Desyrel) 50 mg QHSP PRN PO INSOMNIA Last administered on 03/27/18at 20:08; Start 03/27/18 at 19:30 Venlafaxine HCl (Effexor Xr) 37.5 mg DAILY PO Last administered on at 08:51; Start 04/02/18 at 09:00; Stop 04/04/18 at 10:22; Status DC Venlafaxine HCl (Effexor Xr) 37.5 mg QHS PO Last administered on 03/27/18at 20:10; Start 03/26/18 at 21:00; Stop 03/28/18 at 14:32; Status DC Venlafaxine HCl (Effexor Xr) 75 mg QHS PO Last administered on 03/30/18at 21:04; Start 03/28/18 at 21:00; Stop 03/31/18 at 18:30; Status DC Venlafaxine HCl (Effexor Xr) 112.5 mg QHS PO Last administered on 03/31/18at 20:42; Start 03/31/18 at 21:00; Stop 04/01/18 at 18:50; Status DC Allergies Coded Allergies: No Known Allergies (Unverified , 08/26/17) DARREN CANNON MD Apr 05, 2018 18:26
[2018-04-05 19:16] VITALS: BP 144/77
[2018-04-05] MEDS: QUEtiapine FUMARATE 50 MG TAB PO SCH (20:24)
[2018-04-06] MEDS: OLANZapine ORAL DISINTEGRATING TAB 5MG PO SCH ×4 (06:04→17:02)
[2018-04-06] MEDS: LEVOTHYROXINE 25MCG TABLET (0.025MG) PO SCH (06:04)
[2018-04-06] MEDS: FOLIC ACID 1 MG TAB PO SCH (08:19)
[2018-04-06] MEDS: PROPRANOLOL 20 MG TAB PO SCH ×3 (08:19→20:02)
[2018-04-06] MEDS: PARoxetine 10MG TABLET PO SCH (08:19)
[2018-04-06] MEDS: MULTIVITAMINS/MINERALS THERAP 1 TAB PO SCH (08:19)
[2018-04-06] MEDS ORDERED: hydrOXYzine 50 MG TAB PO STA (16:46)
[2018-04-06 18:00] VITALS: BP 140/80
[2018-04-06] MEDS: QUEtiapine FUMARATE 50 MG TAB PO SCH (20:02)
--- NOTE | 2018-04-06 21:23 | MHIPNPDOC ---
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 PT with hx of depression as well and prior admissions to [facility]. Pt is now clinically sober, appears depressed, poor eye contact, initially states he does not know why he is here but then admits to possibly making suicidal comments to a friend that was with him in his room earlier. Pt admits to feeling depressed due to numerous stressors, reports he is getting , he is being "kicked out of the [employer]", does not see a future for himself because things are falling through at home, and feels he is looked at as "one of the undesirables" at [place]. When asked if he is feeling suicidal pt replies "well not here",when asked if he can maintain his safety if he is d/c'd back to [place] he replies "I don't know". Pt reports prior attempts at self harm, was stopped by his Sgt. when he tried to cut self, also reports attempting to cut wrist with "paper clip while I was in correction". PT also reports thoughts of "driving my car into the [place]". Pt denies HI, denies AH/VH, states he has been going to [facility] and [facility] however continues to drink daily to intoxication, denies any drug use" VITAL SIGNS: See below. NEW TEST RESULTS: See below CURRENT MEDICATIONS: See below. MENTAL STATUS EXAMINATION: Patient is a 27 year old male, who is alert, dressed in hospital clothes, pleasant Speech: normal rhythm, normal tone and normal volume. Language skills are normal Thought processes including: intact. Thought content: He denies SI, denies HI, denies AV hallucinations, denies thought delusions Description of abnormal or psychotic thoughts: Denies AV hallucinations, denies thought delusions, denies homicidal ideation, denies SI Judgment: poor Insight: limited Orientation: x 3. Recent and remote memory: intact. Attention span and concentration: good. Language: good. Fund of knowledge: average. Mood: very anxious/depressed. Affect: depressed/anxious DIAGNOSES: 1. Major Depressive disorder, recurrent, severe 2. Alcohol use disorder. 3. 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 They need to modify landscape architect and planner about the date and time the patient is going to be leaving to [place] for long- term treatment. He was in good spirits yesterday but he is becoming depressed again for having to wait without knowing when he is going. Gave him a 1 time dose of Atarax 75 mg for anxiety. MANAGEMENT PLAN: 1. Zyprexa 5 mgs PO Q6H for anxiety or agitation 2. Venlafaxine 37.5 mgs PO qhs 3. Seroquel 150 mgs PO QHS 4. Levothyroxine 25 mcg Po daily 5. Paxil 20 mgs PO QAM TIME SPENT: 25 minutes. Vital Signs Vital Signs Date Time Temp Pulse Resp B/P (MAP) Pulse Ox O2 Delivery O2 Flow Rate FiO2 04/06/18 20:02 78 140/76 04/06/18 18:00 98.8 18 04/05/18 07:00 Room Air Current Medications Current Medications Acetaminophen (Tylenol Tab) 650 mg Q6HP PRN PO HEADACHE or DISCOMFORT Last administered on 03/28/18at 11:40; Start 03/26/18 at 04:30 Al Hydrox/Mg Hydrox/Simethicone (Mylanta) 30 ml Q4HP PRN PO HEARTBURN/INDIGESTION; Start 03/26/18 at 04:30 Folic Acid (Folic Acid) 1 mg DAILY PO Last administered on 04/06/18at 08:19; Start 03/26/18 at 09:00 Home Med (Med Rec Complete!) ASDIRECTED XX ; Start 03/26/18 at 05:15; Stop 1 05/27/17 at 05:15; Status DC Hydroxyzine HCl (Atarax) 75 mg STAT STAT PO Last administered on 04/06/18at 17:02; Start 04/06/18 at 16:46; Stop 04/06/18 at 16:48; Status DC Levothyroxine Sodium (Synthroid) 25 mcg DAILY@06 PO Last administered on 04/06/18at 06:04; Start 03/27/18 at 06:00 Lorazepam (Ativan) 1 mg STAT STAT IM Last administered on 03/26/18at 15:15; Start 03/26/18 at 15:00; Stop 03/26/18 at 15:03; Status DC Lorazepam (Ativan) 2 mg ASDIRECTED PRN PO SEE PROTOCOL; Start 03/26/18 at 04:30; Status Cancel Magnesium Hydroxide (Milk Of Magnesia) 30 ml DAILYPRN PRN PO CONSTIPATION; Start 03/26/18 at 04:30 Multivitamins (Theragram-M) 1 tab DAILY PO Last administered on 04/06/18at 08:19; Start 03/26/18 at 09:00 Nicotine (Nicorette) 2 mg Q2HP PRN PO NICOTINE WITHDRAWAL Last administered on 04/05/18at 08:39; Start 03/31/18 at 10:15 Olanzapine (ZyPREXA ZYDIS) 5 mg Q4HP PRN PO ANXIETY/AGITATION Last administered on 03/29/18at 16:13; Start 03/27/18 at 19:30; Stop 03/29/18 at 18:21; Status DC Olanzapine (ZyPREXA ZYDIS) 5 mg Q6H PO Last administered on 03/30/18at 06:42; Start 03/29/18 at 18:00; Stop 03/30/18 at 10:43; Status DC Olanzapine (ZyPREXA ZYDIS) 5 mg Q6H PO Last administered on 04/06/18at 17:02; Start 04/01/18 at 18:00 Olanzapine (ZyPREXA ZYDIS) 5 mg Q6HP PRN PO ANXIETY/AGITATION; Start 03/26/18 at 15:00; Stop 03/26/18 at 15:08; Status DC Olanzapine (ZyPREXA ZYDIS) 5 mg Q6HP PRN PO ANXIETY/AGITATION Last administered on 03/31/18at 08:56; Start 03/30/18 at 10:45; Stop 04/01/18 at 18:51; Status DC Olanzapine (ZyPREXA ZYDIS) 10 mg STAT STAT PO Last administered on 03/28/18at 14:46; Start 03/28/18 at 14:40; Stop 03/28/18 at 14:41; Status DC Paroxetine HCl (PAXil) 20 mg DAILY PO ; Start 04/02/18 at 09:00; Stop 04/02/18 at 09:00; Status DC Paroxetine HCl (PAXil) 20 mg QAM PO Last administered on 04/04/18at 08:51; Start 04/02/18 at 09:00; Stop 04/04/18 at 10:25; Status DC Paroxetine HCl (PAXil) 30 mg QAM PO Last administered on 04/06/18at 08:19; Start 04/05/18 at 09:00 Propranolol HCl (Inderal) 20 mg TID PO Last administered on 04/06/18at 20:02; Start 04/01/18 at 21:00 Quetiapine Fumarate (SEROquel) 150 mg QHS PO Last administered on 04/06/18at 20:02; Start 03/26/18 at 21:00 Thiamine HCl (Thiamine HCl) 100 mg BID PO Last administered on 03/28/18at 22:00; Start 03/26/18 at 09:00; Stop 03/29/18 at 08:59; Status DC Trazodone HCl (Desyrel) 50 mg QHSP PRN PO INSOMNIA; Start 03/26/18 at 04:30; Stop 03/26/18 at 20:49; Status DC Trazodone HCl (Desyrel) 50 mg QHSP PRN PO INSOMNIA Last administered on 03/27/18at 20:08; Start 03/27/18 at 19:30 Venlafaxine HCl (Effexor Xr) 37.5 mg DAILY PO Last administered on 04/04/18at 08:51; Start 04/02/18 at 09:00; Stop 04/04/18 at 10:22; Status DC Venlafaxine HCl (Effexor Xr) 37.5 mg QHS PO Last administered on 03/27/18at 20:10; Start 03/26/18 at 21:00; Stop 03/28/18 at 14:32; Status DC Venlafaxine HCl (Effexor Xr) 75 mg QHS PO Last administered on 03/30/18at 21:04; Start 03/28/18 at 21:00; Stop 03/31/18 at 18:30; Status DC Venlafaxine HCl (Effexor Xr) 112.5 mg QHS PO Last administered on 03/31/18at 20:42; Start 03/31/18 at 21:00; Stop 04/01/18 at 18:50; Status DC Allergies Coded Allergies: No Known Allergies (Unverified , 08/26/17) DARREN CANNON MD Apr 06, 2018 21:23
[2018-04-07] MEDS: LEVOTHYROXINE 25MCG TABLET (0.025MG) PO SCH (06:07)
[2018-04-07] MEDS: OLANZapine ORAL DISINTEGRATING TAB 5MG PO SCH ×4 (06:07→18:10)
[2018-04-07 06:45] VITALS: BP 121/81
[2018-04-07] MEDS: MULTIVITAMINS/MINERALS THERAP 1 TAB PO SCH (10:21)
[2018-04-07] MEDS: FOLIC ACID 1 MG TAB PO SCH (10:21)
[2018-04-07] MEDS: PROPRANOLOL 20 MG TAB PO SCH ×3 (10:22→20:40)
[2018-04-07] MEDS: PARoxetine 10MG TABLET PO SCH (10:22)
[2018-04-07] MEDS: NICOTINE POLACRILEX 2 MG GUM PO PRN (12:33)
[2018-04-07 18:00] VITALS: BP 132/70
[2018-04-07] MEDS ORDERED: PARO5TAB PO (19:47)
[2018-04-07] MEDS ORDERED: QUET1TAB9 PO (19:47)
[2018-04-07] MEDS ORDERED: FOLI1TAB11 PO (19:47)
--- NOTE | 2018-04-07 19:55 | MHIPNPDOC ---
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 PT with hx of depression as well and prior admissions to [facility]. Pt is now clinically sober, appears depressed, poor eye contact, initially states he does not know why he is here but then admits to possibly making suicidal comments to a friend that was with him in his room earlier. Pt admits to feeling depressed due to numerous stressors, reports he is getting , he is being "kicked out of the [employer]", does not see a future for himself because things are falling through at home, and feels he is looked at as "one of the undesirables" at [place]. When asked if he is feeling suicidal pt replies "well not here",when asked if he can maintain his safety if he is d/c'd back to [place] he replies "I don't know". Pt reports prior attempts at self harm, was stopped by his Sgt. when he tried to cut self, also reports attempting to cut wrist with "paper clip while I was in detention". PT also reports thoughts of "driving my car into the [place]". Pt denies HI, denies AH/VH, states he has been going to [facility] and [facility] however continues to drink daily to intoxication, denies any drug use" VITAL SIGNS: See below. NEW TEST RESULTS: See below CURRENT MEDICATIONS: See below. MENTAL STATUS EXAMINATION: Patient is a 27 year old male, who is alert, dressed in hospital clothes, pleasant Speech: normal rhythm, normal tone and normal volume. Language skills are normal Thought processes including: intact. Thought content: He denies SI, denies HI, denies AV hallucinations, denies thought delusions Description of abnormal or psychotic thoughts: Denies AV hallucinations, denies thought delusions, denies homicidal ideation, denies SI Judgment: poor Insight: limited Orientation: x 3. Recent and remote memory: intact. Attention span and concentration: good. Language: good. Fund of knowledge: average. Mood: very anxious/depressed. Affect: depressed/anxious DIAGNOSES: 1. Major Depressive disorder, recurrent, severe 2. Alcohol use disorder. 3. R/O cluster B personality disorder ASSESSMENT: The patient reports it was very hard for him to fall asleep last night. Requests to have an additional dose of Seroquel at bedtime because it's hard for him to fall asleep. I remind him of the multiple side effects of this medications and tell him that I will order a 200 mg dose for tonight only. Patient will be leaving tomorrow at 7 AM to long-term treatment in [place]. 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 MANAGEMENT PLAN: 1. Zyprexa 5 mgs PO Q6H for anxiety or agitation 2. Seroquel 200 mgs PO QHS 3. Levothyroxine 25 mcg Po daily 4. Paxil 30 mgs PO QAM TIME SPENT: 25 minutes. Vital Signs Vital Signs Date Time Temp Pulse Resp B/P (MAP) Pulse Ox O2 Delivery O2 Flow Rate FiO2 04/07/18 18:00 99.3 99 18 132/70 (90) 04/07/18 06:45 Room Air Current Medications Current Medications Acetaminophen (Tylenol Tab) 650 mg Q6HP PRN PO HEADACHE or DISCOMFORT Last administered on 03/28/18at 11:40; Start 03/26/18 at 04:30 Al Hydrox/Mg Hydrox/Simethicone (Mylanta) 30 ml Q4HP PRN PO HEARTBURN/INDIGE STION; Start 03/26/18 at 04:30 Folic Acid (Folic Acid) 1 mg DAILY PO Last administered on 04/07/18at 10:21; Start 03/26/18 at 09:00 Home Med (Med Rec Complete!) ASDIRECTED XX ; Start 03/26/18 at 05:15; Stop 03/26/18 at 05:15; Status DC Hydroxyzine HCl (Atarax) 75 mg STAT STAT PO Last administered on 04/06/18at 17:02; Start 04/06/18 at 16:46; Stop 04/06/18 at 16:48; Status DC Levothyroxine Sodium (Synthroid) 25 mcg DAILY@06 PO Last administered on 04/07/18at 06:07; Start 03/27/18 at 06:00 Lorazepam (Ativan) 1 mg STAT STAT IM Last administered on 03/26/18at 15:15; Start 03/26/18 at 15:00; Stop 03/26/18 at 15:03; Status DC Lorazepam (Ativan) 2 mg ASDIRECTED PRN PO SEE PROTOCOL; Start 03/26/18 at 04:30; Status Cancel Magnesium Hydroxide (Milk Of Magnesia) 30 ml DAILYPRN PRN PO CONSTIPATION; Start 03/26/18 at 04:30 Multivitamins (Theragram-M) 1 tab DAILY PO Last administered on 04/07/18at 10:21; Start 03/26/18 at 09:00 Nicotine (Nicorette) 2 mg Q2HP PRN PO NICOTINE WITHDRAWAL Last administered on 04/07/18at 12:33; Start 03/31/18 at 10:15 Olanzapine (ZyPREXA ZYDIS) 5 mg Q4HP PRN PO ANXIETY/AGITATION Last administered on 03/29/18at 16:13; Start 03/27/18 at 19:30; Stop 03/29/18 at 18:21; Status DC Olanzapine (ZyPREXA ZYDIS) 5 mg Q6H PO Last administered on 03/30/18at 06:42; Start 03/29/18 at 18:00; Stop 03/30/18 at 10:43; Status DC Olanzapine (ZyPREXA ZYDIS) 5 mg Q6H PO Last administered on 04/07/18at 18:10; Start 04/01/18 at 18:00 Olanzapine (ZyPREXA ZYDIS) 5 mg Q6HP PRN PO ANXIETY/AGITATION; Start 03/26/18 at 15:00; Stop 03/26/18 at 15:08; Status DC Olanzapine (ZyPREXA ZYDIS) 5 mg Q6HP PRN PO ANXIETY/AGITATION Last administered on 03/31/18at 08:56; Start 03/30/18 at 10:45; Stop 04/01/18 at 18:51; Status DC Olanzapine (ZyPREXA ZYDIS) 10 mg STAT STAT PO Last administered on 03/28/18at 14:46; Start 03/28/18 at 14:40; Stop 03/28/18 at 14:41; Status DC Paroxetine HCl (PAXil) 20 mg DAILY PO ; Start 04/02/18 at 09:00; Stop 04/02/18 at 09:00; Status DC Paroxetine HCl (PAXil) 20 mg QAM PO Last administered on 04/04/18at 08:51; Start 04/02/18 at 09:00; Stop 04/04/18 at 10:25; Status DC Paroxetine HCl (PAXil) 30 mg QAM PO Last administered on 04/07/18at 10:22; Start 04/05/18 at 09:00 Propranolol HCl (Inderal) 20 mg TID PO Last administered on 04/07/18at 16:13; Start 04/01/18 at 21:00 Quetiapine Fumarate (SEROquel) 150 mg QHS PO Last administered on 04/06/18at 20:02; Start 03/26/18 at 21:00; Stop 04/07/18 at 16:35; Status DC Quetiapine Fumarate (SEROquel) 200 mg QHS PO ; Start 04/07/18 at 21:00 Thiamine HCl (Thiamine HCl) 100 mg BID PO Last administered on 03/28/18at 22:00; Start 03/26/18 at 09:00; Stop 03/29/18 at 08:59; Status DC Trazodone HCl (Desyrel) 50 mg QHSP PRN PO INSOMNIA; Start 03/26/18 at 04:30; Stop 03/26/18 at 20:49; Status DC Trazodone HCl (Desyrel) 50 mg QHSP PRN PO INSOMNIA Last administered on 03/27/18at 20:08; Start 03/27/18 at 19:30 Venlafaxine HCl (Effexor Xr) 37.5 mg DAILY PO Last administered on 04/04/18at 08:51; Start 04/02/18 at 09:00; Stop 04/04/18 at 10:22; Status DC Venlafaxine HCl (Effexor Xr) 37.5 mg QHS PO Last administered on 03/27/18at 20:10; Start 03/26/18 at 21:00; Stop 03/28/18 at 14:32; Status DC Venlafaxine HCl (Effexor Xr) 75 mg QHS PO Last administered on 03/30/18at 21:04; Start 03/28/18 at 21:00; Stop 03/31/18 at 18:30; Status DC Venlafaxine HCl (Effexor Xr) 112.5 mg QHS PO Last administered on 03/31/18at 20:42; Start 03/31/18 at 21:00; Stop 04/01/18 at 18:50; Status DC Allergies Coded Allergies: No Known Allergies (Unverified , 08/26/17) DARREN CANNON MD Apr 07, 2018 19:55
[2018-04-07] MEDS: traZODone 50 MG TAB PO PRN (20:39)
[2018-04-07] MEDS ORDERED: QUEtiapine FUMARATE 200 MG TAB PO SCH (21:00)
[2018-04-08] MEDS: OLANZapine ORAL DISINTEGRATING TAB 5MG PO SCH ×2 (06:28)
[2018-04-08] MEDS: LEVOTHYROXINE 25MCG TABLET (0.025MG) PO SCH (06:28)
[2018-04-08 06:39] VITALS: BP 144/94
[2018-04-08 07:11] VITALS: BP 136/80
[2018-04-08] MEDS: PROPRANOLOL 20 MG TAB PO SCH (07:11)
[2018-04-08] MEDS: MULTIVITAMINS/MINERALS THERAP 1 TAB PO SCH (07:12)
[2018-04-08] MEDS: PARoxetine 10MG TABLET PO SCH (07:12)
[2018-04-08] MEDS: FOLIC ACID 1 MG TAB PO SCH (07:13)
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
== END 2018-04-08 07:15 | DRG 885 ==
LOC: EDBD 22:57 → M ED 22:57 → M ED INP 03-26 04:25 → MERGE 03-26 04:25 → M PSY 03-26 05:00
PROVIDERS: ADMIT Psychiatry & Neurology Psychiatry; ATTEND Psychiatry & Neurology Psychiatry
DX: F33.2 Major depressive disorder, recurrent severe without psychotic features (principal); F10.10 Alcohol abuse, uncomplicated; F60.89 Other specific personality disorders; Z79.899 Other long term (current) drug therapy

== ENCOUNTER 2018-05-25 18:20 | Emergency (ER) | payer OTHER ==
[~2018-05-25] VITALS: Ht 185.4 cm; Wt 84.1 kg
[~2018-05-25 18:20] MED LIST changes: +EFFE37.5 PO; +FOLI1TAB11 PO; +HYDR50TA70 PO; +PARO5TAB PO; +QUET1TAB9 PO; +SERO1TAB PO; +SERO50TA PO; +VENL37TA PO
[2018-05-25] MEDS ORDERED: ACET1TAB55 PO (18:26)
[2018-05-25] MEDS ORDERED: IBUP-1022 PO (18:26)
[2018-05-25] MEDS ORDERED: NORCOTAB PO (18:50)
[2018-05-25] MEDS ORDERED: LIDO1SOL7 PO (18:52)
[2018-05-25] MEDS ORDERED: NORCO 5/325MG TABLET (BULK FOR ED) PO ONE (19:00)
[2018-05-25 19:18] VITALS: BP 128/63
== END 2018-05-25 19:20 | disposition home or self-care (01) ==
LOC: M ED 18:20
DX: K08.89 Other specified disorders of teeth and supporting structures (principal); G89.18 Other acute postprocedural pain; Z98.818 Other dental procedure status; I10 Essential (primary) hypertension; E07.9 Disorder of thyroid, unspecified; Z79.899 Other long term (current) drug therapy

== ENCOUNTER → 2018-07-18 | Outpatient (CLI) | payer MEDICAID, SELFPAY ==
[~2018-07-18] MED LIST changes: +ACET1TAB55 PO; +HYDR-3715 PO; +IBUP-1022 PO; +LIDO1SOL8 PO; +PROP10TA55 PO; -PROP10TAB PO
== END ==
LOC: M OUTALCOH 07:55
PROVIDERS: ATTEND Psychiatry & Neurology Psychiatry
DX: Z13.9 Encounter for screening, unspecified (principal)

== ENCOUNTER → 2018-08-23 | Outpatient (RCR) | payer MEDICAID, SELFPAY ==
[~2018-08-23] MED LIST changes: +ROBA500T PO
== END ==
LOC: M OUTALCOH 07-25 09:18
PROVIDERS: ATTEND Psychiatry & Neurology Psychiatry
DX: F10.10 Alcohol abuse, uncomplicated (principal)

== ENCOUNTER 2018-08-28 03:31 | Emergency (ER) | payer MEDICAID, OTHER ==
[~2018-08-28] VITALS: Ht 185.4 cm; Wt 90.9 kg
[~2018-08-28 03:31] MED LIST changes: -ROBA500T PO
[2018-08-28] MEDS ORDERED: METHOCARBAMOL 500 MG TAB PO ONE (07:15)
[2018-08-28] MEDS ORDERED: IBUPROFEN 600 MG TAB PO ONE (07:15)
[2018-08-28] MEDS ORDERED: ROBA500T PO (07:22)
[2018-08-28 07:25] VITALS: BP 109/66
--- NOTE | 2018-08-28 11:38 | REP ---
LEFT SHOULDER, THREE VIEWS: There is no evidence of an acute fracture, dislocation or intrinsic bone disease. IMPRESSION: No fracture or dislocation. Electronically Signed by Dominik Ramon MD 08/28/2018 12:28 P
== END 2018-08-28 07:45 | disposition home or self-care (01) ==
LOC: M ED 03:31
DX: S46.912A Strain of unspecified muscle, fascia and tendon at shoulder and upper arm level, left arm, initial encounter (principal); X58.XXXA Exposure to other specified factors, initial encounter; Y92.89 Other specified places as the place of occurrence of the external cause; I10 Essential (primary) hypertension

== ENCOUNTER 2018-09-21 13:42 | Outpatient (RCR) | payer MEDICAID ==
[~2018-09-21 13:42] MED LIST changes: +ROBA500T PO
== END 2018-09-23 ==
LOC: M OUTALCOH 13:42
PROVIDERS: ATTEND Psychiatry & Neurology Psychiatry
DX: F10.10 Alcohol abuse, uncomplicated (principal)

== ENCOUNTER 2018-09-28 15:26 | Emergency (ER) | payer MEDICAID, OTHER ==
[~2018-09-28] VITALS: Ht 185.4 cm; Wt 81.8 kg
[~2018-09-28 15:26] MED LIST changes: -TRAZ-160; -TRAZ-160 PO; +TRAZ-252; +TRAZ-252 PO; +TRAZ1TAB10 PO; -TRAZO50TA PO
[2018-09-28 16:03] LABS: HEMOGLOBIN 14.9 g/dl (13.5-17.5); MEAN CORPUSCULAR HEMOGLOBIN 30.2 pg (27.0-33.0); MEAN CORPUSCULAR HGB CONC 33.1 g/dl (32.0-36.5); MEAN CORPUSCULAR VOLUME 91.1 fl (80.0-96.0); PLATELET COUNT, AUTOMATED 260 10^3/uL (150-450); RED BLOOD COUNT 4.94 10^6/uL (4.30-6.10); WHITE BLOOD COUNT 5.9 10^3/uL (4.0-10.0)
[2018-09-28 16:19] LABS: AMPHETAMINES LEVEL URINE NEGATIVE (NEGATIVE); BARBITURATES URINE NEGATIVE (NEGATIVE); BENZODIAZEPINES URINE NEGATIVE (NEGATIVE); CANNABINOIDS URINE NEGATIVE (NEGATIVE); COCAINE METABOLITE URINE NEGATIVE (NEGATIVE); METHADONE URINE NEGATIVE (NEGATIVE); OPIATES URINE NEGATIVE (NEGATIVE); PHENCYCLIDINE URINE NEGATIVE (NEGATIVE)
[2018-09-28 16:35] LABS: ACETAMINOPHEN LEVEL < 2.0 UG/ML (10.0-30.0); ALBUMIN 4.3 GM/DL (3.2-5.2); ALT/SGPT 20 U/L (12-78); BILIRUBIN,DIRECT 0.1 MG/DL (0.0-0.2); BILIRUBIN,TOTAL 0.4 MG/DL (0.2-1.0); BLOOD UREA NITROGEN 13 MG/DL (7-18); CALCIUM LEVEL 9.2 MG/DL (8.5-10.1); CARBON DIOXIDE LEVEL 28 MEQ/L (21-32); CHLORIDE LEVEL 105 MEQ/L (98-107); CREATININE FOR GFR 0.86 MG/DL (0.70-1.30); ETHYL ALCOHOL (ETHANOL) < 0.003 % (0.000-0.010); GLOMERULAR FILTRATION RATE > 60.0 (>60); GLUCOSE, FASTING 94 MG/DL (70-100); POTASSIUM SERUM 4.3 MEQ/L (3.5-5.1); SALICYLATE LEVEL < 1.7 MG/DL (5.0-30.0); SODIUM LEVEL 140 MEQ/L (136-145); TOTAL PROTEIN 7.6 GM/DL (6.4-8.2)
[2018-09-29 06:12] VITALS: BP 118/61
== END 2018-09-29 07:17 ==
LOC: M ED 15:26
DX: R45.851 Suicidal ideations (principal); F33.9 Major depressive disorder, recurrent, unspecified; Z91.5 Personal history of self-harm
CPT/HCPCS: 36415; 80048; 80076; 80307; 84443; 85027; 99284; G0480

== ENCOUNTER → 2018-10-05 | Outpatient (REF) | payer OTHER, MEDICAID ==
[2018-10-05 19:20] LABS: ALBUMIN 4.4 GM/DL (3.2-5.2); ALT/SGPT 24 U/L (12-78); BILIRUBIN,TOTAL 0.6 MG/DL (0.2-1.0); BLOOD UREA NITROGEN 14 MG/DL (7-18); CALCIUM LEVEL 9.3 MG/DL (8.5-10.1); CARBON DIOXIDE LEVEL 29 MEQ/L (21-32); CHLORIDE LEVEL 103 MEQ/L (98-107); CHOLESTEROL LEVEL 171 MG/DL (<200); CHOLESTEROL RISK RATIO 3.226 (<5); CREATININE FOR GFR 0.95 MG/DL (0.70-1.30); GLOMERULAR FILTRATION RATE > 60.0 (>60); GLUCOSE, FASTING 81 MG/DL (70-100); HDL CHOLESTEROL 53 MG/DL (>40); LDL CHOLESTEROL 107 MG/DL (<100); NON-HDL-C 118 MG/DL; SODIUM LEVEL 139 MEQ/L (136-145); TOTAL PROTEIN 8.1 GM/DL (6.4-8.2); TRIGLYCERIDES LEVEL 55 MG/DL (<150)
[2018-10-05 19:22] LABS: BASO # 0.1 10^3/uL (0.0-0.2); BASO % 0.9 % (0.0-1.0); EOS # 0.1 10^3/uL (0.0-0.50); EOS % 2.1 % (0.0-3.0); HEMATOCRIT 46.3 % (42.0-52.0); HEMOGLOBIN 15.4 g/dl (13.5-17.5); LYMPH # 2.1 10^3/uL (1.5-6.5); LYMPH % 31.3 % (24.0-44.0); MEAN CORPUSCULAR HEMOGLOBIN 30.1 pg (27.0-33.0); MEAN CORPUSCULAR HGB CONC 33.3 g/dl (32.0-36.5); MEAN CORPUSCULAR VOLUME 90.6 fl (80.0-96.0); MONO # 0.9 10^3/uL (0.0-0.8); NEUTROPHILS # 3.5 10^3/uL (1.8-7.7); NEUTROPHILS % 52.4 % (36.0-66.0); PLATELET COUNT, AUTOMATED 261 10^3/uL (150-450); RED BLOOD COUNT 5.11 10^6/uL (4.30-6.10); WHITE BLOOD COUNT 6.7 10^3/uL (4.0-10.0)
[2018-10-05 19:36] LABS: HEMOGLOBIN A1c 5.7 %
== END ==
LOC: M LAB REF 18:41
PROVIDERS: ATTEND Nurse Practitioner Family
DX: Z13.9 Encounter for screening, unspecified (principal); I10 Essential (primary) hypertension; E03.9 Hypothyroidism, unspecified

== ENCOUNTER 2018-10-19 15:00 | Outpatient (RCR) | payer MEDICAID | END 2018-10-23 | LOC: M OUTALCOH 15:00 | PROVIDERS: ATTEND Psychiatry & Neurology Psychiatry | DX: F10.10 Alcohol abuse, uncomplicated (principal) ==

== ENCOUNTER → 2018-11-23 | Outpatient (RCR) | payer MEDICAID | LOC: M OUTALCOH 10-31 09:14 | PROVIDERS: ATTEND Psychiatry & Neurology Psychiatry | DX: F10.10 Alcohol abuse, uncomplicated (principal) ==

== ENCOUNTER 2018-12-20 12:45 | Outpatient (RCR) | payer MEDICAID ==
[~2018-12-20 12:45] MED LIST changes: +HYDR1TAB33 PO; -HYDRO50TAB PO; -QUET1TAB9 PO; +QUET200T2 PO
== END 2018-12-24 ==
LOC: M OUTALCOH 12:45
PROVIDERS: ATTEND Psychiatry & Neurology Psychiatry
DX: F10.10 Alcohol abuse, uncomplicated (principal)

== ENCOUNTER 2019-01-13 12:49 | Outpatient (RCR) | payer MEDICAID | END 2019-01-23 | LOC: M OUTALCOH 12:49 | PROVIDERS: ATTEND Psychiatry & Neurology Psychiatry | DX: F10.10 Alcohol abuse, uncomplicated (principal) ==

== ENCOUNTER → 2019-02-28 | Outpatient (CLI) | payer MEDICAID ==
[~2019-02-28] MED LIST changes: -SERT-155; +SERT50TA29
== END ==
LOC: M OUTALCOH 07:53
PROVIDERS: ATTEND Psychiatry & Neurology Psychiatry
DX: F10.10 Alcohol abuse, uncomplicated (principal)

== ENCOUNTER 2019-03-19 08:53 | Inpatient (IN) | payer MEDICAID, OTHER ==
[~2019-03-19] VITALS: Ht 185.4 cm; Wt 68.2 kg
[2019-03-19] MEDS ORDERED: LEVO25TA5 PO (09:28)
[2019-03-19] MEDS ORDERED: PROP10TA56 PO (09:28)
[2019-03-19 09:52] LABS: HEMATOCRIT 45.8 % (42.0-52.0); MEAN CORPUSCULAR HEMOGLOBIN 29.9 pg (27.0-33.0); MEAN CORPUSCULAR HGB CONC 32.8 g/dl (32.0-36.5); MEAN CORPUSCULAR VOLUME 91.4 fl (80.0-96.0); PLATELET COUNT, AUTOMATED 244 10^3/uL (150-450); RED BLOOD COUNT 5.01 10^6/uL (4.30-6.10); WHITE BLOOD COUNT 4.2 10^3/uL (4.0-10.0)
[2019-03-19 10:15] LABS: AMPHETAMINES LEVEL URINE NEGATIVE (NEGATIVE); BARBITURATES URINE NEGATIVE (NEGATIVE); BENZODIAZEPINES URINE NEGATIVE (NEGATIVE); CANNABINOIDS URINE NEGATIVE (NEGATIVE); COCAINE METABOLITE URINE NEGATIVE (NEGATIVE); METHADONE URINE NEGATIVE (NEGATIVE); OPIATES URINE NEGATIVE (NEGATIVE); PHENCYCLIDINE URINE NEGATIVE (NEGATIVE)
[2019-03-19 10:25] LABS: ACETAMINOPHEN LEVEL < 2.0 UG/ML (10.0-30.0); ALT/SGPT 20 U/L (12-78); BILIRUBIN,DIRECT < 0.1 MG/DL (0.0-0.2); BILIRUBIN,TOTAL 0.4 MG/DL (0.2-1.0); BLOOD UREA NITROGEN 12 MG/DL (7-18); CARBON DIOXIDE LEVEL 30 MEQ/L (21-32); CHLORIDE LEVEL 107 MEQ/L (98-107); CREATININE FOR GFR 0.87 MG/DL (0.70-1.30); ETHYL ALCOHOL (ETHANOL) 0.031 % (0.000-0.010); GLOMERULAR FILTRATION RATE > 60.0 (>60); GLUCOSE, FASTING 79 MG/DL (70-100); POTASSIUM SERUM 3.9 MEQ/L (3.5-5.1); SALICYLATE LEVEL < 1.7 MG/DL (5.0-30.0); SODIUM LEVEL 143 MEQ/L (136-145); TOTAL PROTEIN 7.6 GM/DL (6.4-8.2)
[2019-03-19] MEDS ORDERED: MOM 30ML SUSPENSION UDC PO PRN (13:30)
[2019-03-19] MEDS ORDERED: MAALOX 30 ML SUSP *UDC PO PRN (13:30)
[2019-03-19] MEDS ORDERED: traZODone 50 MG TAB PO PRN (13:30)
[2019-03-19] MEDS ORDERED: ACETAMINOPHEN TAB 650MG DOSE (2X325MG) PO PRN (13:30)
[2019-03-19] MEDS ORDERED: EXCETAB33 PO (14:01)
[2019-03-19] MEDS ORDERED: APAP500T10 PO (14:01)
[2019-03-19 14:17] VITALS: BP 123/78
[2019-03-19] MEDS: PROPRANOLOL 10 MG TAB PO SCH ×2 (15:48→20:25)
--- NOTE | 2019-03-19 22:28 | HPE ---
DATE OF ADMISSION: 03/19/2019 PRIMARY CARE PROVIDER: [facility]. This is a hospitalist history and physical on Nicholas Skelton. He is admitted to the inpatient mental health unit for psychiatric problems. His medical history shows hypothyroidism and hypertension. He says he is prediabetic as well. Denies any asthma, elias diabetes, coronary artery disease. REVIEW OF SYSTEMS: No palpitations, tremors, heat intolerance, rectal bleeding, urinary bleeding, epistaxis. FAMILY HISTORY: Both parents and grandparents have diabetes. SOCIAL HISTORY: Smokes, as well as use chewing tobacco. Admits to alcohol use. MEDICATIONS: - levothyroxine 25 mcg daily - propranolol 10 mg three times a day - Excedrin as needed - Tylenol as needed ALLERGIES: None known. PHYSICAL EXAMINATION: VITAL SIGNS: Per flow sheet. Blood pressure (BP) was 123/78, pulse of 92. GENERAL APPEARANCE: Alert, conversant, in no distress. Pupils equal, round and reactive. Anicteric sclerae. Neck: No masses, no thyromegaly. No cervical lymphadenopathy. LUNGS: Clear. HEART: Without murmur. ABDOMEN: Soft, nontender. No masses. No peripheral edema. Coordination normal. Gait normal. Neurologic exam: Unremarkable. LABORATORY: Complete blood count (CBC), comprehensive metabolic panel (CMP) unremarkable. Thyroid simulating hormone (TSH) normal. IMPRESSION: 1. Hypothyroidism. Continue current dose of levothyroxine 25 mcg daily. 2. Hypertension. Continue propranolol 10 mg three times a day. 3. Various psychiatric history, is deferred psychiatry. Hospitalist group available should any medical problems develop during his [facility] stay.
[2019-03-20] MEDS ORDERED: LEVOTHYROXINE 25MCG TABLET (0.025MG) PO SCH (06:00)
[2019-03-20 06:01] VITALS: BP 117/66
[2019-03-20 08:44] VITALS: BP 122/68
[2019-03-20] MEDS: PROPRANOLOL 10 MG TAB PO SCH (08:44)
[2019-03-20 08:45] VITALS: BP 122/68
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
--- NOTE | 2019-03-20 10:14 | MHDSPDOC ---
[facility] Discharge Summary Discharge Summary DATE OF ADMISSION: Mar 19, 2019 at 13:25 DATE OF DISCHARGE: 03/20/19 DISCHARGE DIAGNOSES: Unspecified trauma stress or related disorder. History of incarceration. Unspecified depressive disorder. Alcohol use disorder, severe. Tobacco use disorder, severe. See h/p for same day discharge information, progress and MSE Vital Signs/I&Os Vital Signs Date Time Temp Pulse Resp B/P (MAP) Pulse Ox O2 Delivery O2 Flow Rate FiO2 03/20/19 08:45 81 18 122/68 (86) 03/20/19 06:01 98.2 03/19/19 14:17 98 Room Air Medications Scheduled Aspirin/Acetaminophen/Caffeine (Excedrin Migraine Caplet) 1 Each Tablet, 2 TAB- CAP PO DAILY, (Reported) TAKES MID-DAY FOR MIGRAINES Disulfiram (Disulfiram) 250 Mg Tablet, 1 TAB PO DAILY for alcohol use for 7 Days, #7 Levothyroxine Sodium (Levothyroxine Sodium) 25 Mcg Tablet, 25 MCG PO DAILY, (Reported) Nicotine (Nicotine Patch) 1 Each Patch.dysq, 1 PATCH TOP DAILY for smoking cessation for 30 Days, #30 Propranolol HCl (Propranolol HCl) 10 Mg Tablet, 10 MG PO TID, (Reported) Scheduled PRN Acetaminophen (Acetaminophen) 500 Mg Tablet, 500 MG PO DAILY PRN for PAIN, (Reported) Allergies Coded Allergies: No Known Allergies (Unverified , 08/26/17) SUSAN JONES DO Mar 20, 2019 10:14
[2019-03-20] MEDS ORDERED: NICO1KIT TOP (11:26)
[2019-03-20] MEDS ORDERED: DISU250T PO (11:26)
== END 2019-03-20 14:25 | disposition home or self-care (01) | DRG 755 ==
LOC: M ED 08:53 → M ED INP 13:25 → M PSY 14:23
PROVIDERS: ADMIT Psychiatry & Neurology Psychiatry; ATTEND Psychiatry & Neurology Addiction Medicine
DX: F43.9 Reaction to severe stress, unspecified (principal); F17.220 Nicotine dependence, chewing tobacco, uncomplicated; E03.9 Hypothyroidism, unspecified; I10 Essential (primary) hypertension; Z79.899 Other long term (current) drug therapy; F10.20 Alcohol dependence, uncomplicated; F32.9 Major depressive disorder, single episode, unspecified; Z81.1 Family history of alcohol abuse and dependence; Z65.2 Problems related to release from prison

== ENCOUNTER → 2019-03-21 | Outpatient (REF) | payer MEDICAID ==
[~2019-03-21] MED LIST changes: +APAP500T10 PO; +DISU250T PO; +EXCETAB33 PO; +NICO1KIT TOP; +PROP10TA56 PO
[2019-03-21 18:49] LABS: FREE T4 1.09 NG/DL (0.76-1.46); THYROID STIMULATING HORMONE 2.6 uIU/ML (0.358-3.740)
[2019-03-21 19:01] LABS: HEMOGLOBIN A1c 5.7 %
== END ==
LOC: M LAB REF 17:38
PROVIDERS: ATTEND Nurse Practitioner Family
DX: R73.03 Prediabetes (principal); E03.9 Hypothyroidism, unspecified

== ENCOUNTER 2019-03-22 13:58 | Outpatient (RCR) | payer MEDICAID | END 2019-03-25 | LOC: M OUTALCOH 13:58 | PROVIDERS: ATTEND Psychiatry & Neurology Psychiatry | DX: F10.10 Alcohol abuse, uncomplicated (principal) ==

== ENCOUNTER 2019-04-24 08:54 | Outpatient (RCR) | payer MEDICAID | END 2019-04-25 | LOC: M OUTALCOH 08:54 | PROVIDERS: ATTEND Psychiatry & Neurology Psychiatry | DX: F10.10 Alcohol abuse, uncomplicated (principal) ==

== ENCOUNTER 2019-05-24 15:00 | Outpatient (RCR) | payer MEDICAID | END 2019-05-26 | LOC: M OUTALCOH 15:00 | PROVIDERS: ATTEND Psychiatry & Neurology Addiction Medicine | DX: F10.10 Alcohol abuse, uncomplicated (principal) ==

== ENCOUNTER 2019-06-21 15:00 | Outpatient (RCR) | payer MEDICAID ==
[~2019-06-21 15:00] MED LIST changes: -LIDO1SOL8 PO; +LIDO2SOL17 PO
== END 2019-06-24 ==
LOC: M OUTALCOH 15:00
PROVIDERS: ATTEND Psychiatry & Neurology Psychiatry
DX: F10.10 Alcohol abuse, uncomplicated (principal)

== ENCOUNTER 2019-07-10 08:54 | Outpatient (RCR) | payer MEDICAID | END 2019-07-25 | LOC: M OUTALCOH 08:54 | PROVIDERS: ATTEND Psychiatry & Neurology Addiction Medicine | DX: F10.10 Alcohol abuse, uncomplicated (principal) ==

== ENCOUNTER → 2019-08-10 | Outpatient (REF) | payer MEDICAID ==
[2019-08-10 15:18] LABS: BASO % 0.5 % (0.0-1.0); EOS # 0.1 10^3/uL (0.0-0.5); EOS % 2.5 % (0.0-3.0); HEMATOCRIT 45.1 % (42.0-52.0); HEMOGLOBIN 15.1 g/dl (13.5-17.5); LYMPH # 2.2 10^3/uL (1.5-5.0); LYMPH % 39.6 % (24.0-44.0); MEAN CORPUSCULAR HEMOGLOBIN 30.2 pg (27.0-33.0); MEAN CORPUSCULAR HGB CONC 33.5 g/dl (32.0-36.5); MEAN CORPUSCULAR VOLUME 90.2 fl (80.0-96.0); MONO # 0.7 10^3/uL (0.0-0.8); MONO % 11.7 % (0.0-5.0); NEUTROPHILS # 2.6 10^3/uL (1.5-8.5); NEUTROPHILS % 45.5 % (36.0-66.0); PLATELET COUNT, AUTOMATED 234 10^3/uL (150-450); WHITE BLOOD COUNT 5.7 10^3/uL (4.0-10.0)
[2019-08-10 15:37] LABS: ALBUMIN 4.1 GM/DL (3.2-5.2); ALT/SGPT 22 U/L (12-78); BILIRUBIN,TOTAL 0.8 MG/DL (0.2-1.0); BLOOD UREA NITROGEN 20 MG/DL (7-18); CALCIUM LEVEL 9.3 MG/DL (8.5-10.1); CARBON DIOXIDE LEVEL 32 MEQ/L (21-32); CHLORIDE LEVEL 104 MEQ/L (98-107); CHOLESTEROL LEVEL 180 MG/DL (<200); CHOLESTEROL RISK RATIO 2.769 (<5); CREATININE FOR GFR 0.83 MG/DL (0.70-1.30); FREE T4 0.94 NG/DL (0.76-1.46); GLOMERULAR FILTRATION RATE > 60.0 (>60); GLUCOSE, FASTING 91 MG/DL (70-100); HDL CHOLESTEROL 65 MG/DL (>40); LDL CHOLESTEROL 103 MG/DL (<100); NON-HDL-C 115 MG/DL; POTASSIUM SERUM 4.5 MEQ/L (3.5-5.1); SODIUM LEVEL 139 MEQ/L (136-145); TOTAL PROTEIN 7.7 GM/DL (6.4-8.2); TRIGLYCERIDES LEVEL 61 MG/DL (<150)
[2019-08-10 15:41] LABS: HEMOGLOBIN A1c 5.5 %
== END ==
LOC: M LAB REF 14:30
PROVIDERS: ATTEND Nurse Practitioner Family
DX: F17.200 Nicotine dependence, unspecified, uncomplicated (principal); E03.9 Hypothyroidism, unspecified; I10 Essential (primary) hypertension; R73.03 Prediabetes; F41.8 Other specified anxiety disorders; Z13.9 Encounter for screening, unspecified

== ENCOUNTER → 2019-12-11 | Outpatient (REF) | payer MEDICAID ==
[2020-01-27 19:58] LABS: BASO % 0.5 % (0.0-1.0); EOS # 0.2 10^3/uL (0.0-0.5); EOS % 4.2 % (0.0-3.0); HEMATOCRIT 39.8 % (42.0-52.0); LYMPH # 1.7 10^3/uL (1.5-5.0); LYMPH % 44.6 % (24.0-44.0); MEAN CORPUSCULAR HEMOGLOBIN 30.5 pg (27.0-33.0); MEAN CORPUSCULAR HGB CONC 32.7 g/dl (32.0-36.5); MEAN CORPUSCULAR VOLUME 93.4 fl (80.0-96.0); MONO # 0.5 10^3/uL (0.0-0.8); MONO % 13.1 % (0.0-5.0); NEUTROPHILS # 1.4 10^3/uL (1.5-8.5); NEUTROPHILS % 37.3 % (36.0-66.0); PLATELET COUNT, AUTOMATED 216 10^3/uL (150-450); RED BLOOD COUNT 4.26 10^6/uL (4.30-6.10); WHITE BLOOD COUNT 3.8 10^3/uL (4.0-10.0)
[2020-02-05 22:22] LABS: HEMOGLOBIN A1c 5.5 %
[2020-02-05 23:52] LABS: ALBUMIN 3.8 GM/DL (3.2-5.2); ALT/SGPT 16 U/L (12-78); BILIRUBIN,TOTAL 0.3 MG/DL (0.2-1.0); BLOOD UREA NITROGEN 10 MG/DL (7-18); CALCIUM LEVEL 8.9 MG/DL (8.5-10.1); CARBON DIOXIDE LEVEL 31 MEQ/L (21-32); CHLORIDE LEVEL 110 MEQ/L (98-107); CHOLESTEROL LEVEL 148 MG/DL (<200); CHOLESTEROL RISK RATIO 2.642 (<5); CREATININE FOR GFR 0.75 MG/DL (0.70-1.30); FREE T4 0.91 NG/DL (0.76-1.46); GLOMERULAR FILTRATION RATE > 60.0 (>60); GLUCOSE, FASTING 85 MG/DL (70-100); HDL CHOLESTEROL 56 MG/DL (>40); LDL CHOLESTEROL 69 MG/DL (<100); NON-HDL-C 92 MG/DL; POTASSIUM SERUM 4.4 MEQ/L (3.5-5.1); SODIUM LEVEL 141 MEQ/L (136-145); TOTAL PROTEIN 7.1 GM/DL (6.4-8.2); TRIGLYCERIDES LEVEL 116 MG/DL (<150)
== END ==
LOC: M LAB REF 11:44
PROVIDERS: ATTEND Nurse Practitioner Family
DX: Z13.9 Encounter for screening, unspecified (principal); F17.200 Nicotine dependence, unspecified, uncomplicated; R73.03 Prediabetes; F41.8 Other specified anxiety disorders; E03.9 Hypothyroidism, unspecified; I10 Essential (primary) hypertension

== ENCOUNTER 2020-08-13 01:28 | Emergency (ER) | payer OTHER, MEDICAID ==
[~2020-08-13] VITALS: Ht 182.9 cm; Wt 75.6 kg
[~2020-08-13 01:28] MED LIST changes: +BUPR150T12 PO; -BUPR150T3 PO
[2020-08-13] MEDS ORDERED: diphenhydrAMINE 50MG/ML VIAL (J1200) IV ONE (04:40)
[2020-08-13] MEDS ORDERED: METOCLOPRAMIDE INJ 10MG/2ML VIAL (J2765 PER 1) IV ONE (04:40)
[2020-08-13] MEDS ORDERED: NS 1,000 ML IV ONE (04:40)
[2020-08-13] MEDS ORDERED: KETOROLAC 30 MG/ML 1ML VIAL IV ONE (04:40)
[2020-08-13] MEDS ORDERED: ONDA4TAB6 PO (05:51)
[2020-08-13 06:30] VITALS: BP 103/57
== END 2020-08-13 06:41 | disposition home or self-care (01) ==
LOC: M ED 01:28
DX: U07.1 COVID-19 (principal); F12.10 Cannabis abuse, uncomplicated
CPT/HCPCS: 96361; 96374; 99284; J1200; J1885; J2765

== ENCOUNTER 2020-12-02 11:45 | Emergency (ER) | payer OTHER, MEDICAID ==
[~2020-12-02] VITALS: Ht 185.4 cm; Wt 73.4 kg
[2020-12-02 11:45] VITALS: BP 136/78
[~2020-12-02 11:45] MED LIST changes: -ARIP1TAB2; +ARIP1TAB43; +OLAN1TAB16 PO; -OLAN5TAB PO; +ONDA4TAB6 PO
--- NOTE | 2020-12-02 14:32 | REP ---
INDICATION: ruq pain. COMPARISON: None TECHNIQUE: Transabdominal FINDINGS: Multiple ultrasonographic images of the liver show the hepatic parenchymal echo texture to appear unremarkable. There are no focal masses. There is no intrahepatic ductal dilatation. The common bile duct measures approximately 4 mm in its greatest transverse dimension. Multiple ultrasonographic images of the gallbladder show no focal or diffuse gallbladder wall thickening. There are no echogenic foci within the gallbladder lumen, which casts acoustic shadows. There is no pericholecystic edema. Images of the pancreatic region show no gross abnormality. The imaged portion of the right kidney is unremarkable. IMPRESSION: Unremarkable right upper quadrant ultrasound. Accredited by the [employer] in General Ultrasound. <Electronically signed by Adarsh Shepard > 12/02/20 [id number]
[2020-12-02 14:40] LABS: BASO % 0.4 % (0.0-1.0); EOS # 0.3 10^3/uL (0.0-0.5); EOS % 6.1 % (0.0-3.0); HEMATOCRIT 39.5 % (42.0-52.0); HEMOGLOBIN 13.4 g/dl (13.5-17.5); LYMPH # 1.6 10^3/uL (1.5-5.0); LYMPH % 34.2 % (24.0-44.0); MEAN CORPUSCULAR HEMOGLOBIN 30.5 pg (27.0-33.0); MEAN CORPUSCULAR HGB CONC 33.9 g/dl (32.0-36.5); MONO # 0.8 10^3/uL (0.0-0.8); MONO % 16.7 % (2.0-8.0); NEUTROPHILS % 42.4 % (36.0-66.0); PLATELET COUNT, AUTOMATED 191 10^3/uL (150-450); RED BLOOD COUNT 4.39 10^6/uL (4.30-6.10); WHITE BLOOD COUNT 4.7 10^3/uL (4.0-10.0)
[2020-12-02 15:08] LABS: ALBUMIN 3.8 GM/DL (3.2-5.2); ALT/SGPT 18 U/L (12-78); BILIRUBIN,DIRECT 0.1 MG/DL (0.0-0.2); BILIRUBIN,TOTAL 0.4 MG/DL (0.2-1.0); BLOOD UREA NITROGEN 10 MG/DL (7-18); CALCIUM LEVEL 8.6 MG/DL (8.5-10.1); CARBON DIOXIDE LEVEL 32 MEQ/L (21-32); CHLORIDE LEVEL 107 MEQ/L (98-107); CREATININE FOR GFR 0.69 MG/DL (0.70-1.30); GLOMERULAR FILTRATION RATE > 60.0 (>60); GLUCOSE, FASTING 84 MG/DL (70-100); LIPASE 146 U/L (73-393); POTASSIUM SERUM 3.9 MEQ/L (3.5-5.1); SODIUM LEVEL 141 MEQ/L (136-145); TOTAL PROTEIN 6.8 GM/DL (6.4-8.2)
[2020-12-02 15:45] LABS: RSV AMPLIFICATION NEGATIVE (NEGATIVE)
--- NOTE | 2020-12-02 16:24 | REP ---
INDICATION: right chest pain. COMPARISON: None TECHNIQUE: Upright PA and lateral chest. FINDINGS: The lung thomason are clear, but appear hyperinflated. Cardiac size is normal. The aide, mediastinum and skeletal structures are unremarkable. IMPRESSION: Hyperinflation, otherwise, essentially negative PA and lateral chest <Electronically signed by Dominik Ford > 12/02/20 [id number]
== END 2020-12-02 16:39 | disposition home or self-care (01) ==
LOC: M ED 11:45
DX: R10.11 Right upper quadrant pain (principal); R42 Dizziness and giddiness; F12.10 Cannabis abuse, uncomplicated

== ENCOUNTER 2021-02-01 23:26 | Emergency (ER) | payer OTHER, MEDICAID ==
[~2021-02-01] VITALS: Ht 185.4 cm; Wt 68.2 kg
[2021-02-02 07:31] VITALS: BP 132/80
[2021-02-02] MEDS ORDERED: ONDA4TAB6 PO (07:35)
[2021-02-02] MEDS ORDERED: ACETAMINOPHEN 325 MG TAB PO ONE (07:35)
[2021-02-02] MEDS ORDERED: BENZ200C70 PO (07:35)
[2021-02-02] MEDS ORDERED: MUCI600T31 PO (07:35)
== END 2021-02-02 07:55 | disposition home or self-care (01) ==
LOC: M ED 23:26
DX: R09.81 Nasal congestion (principal); B97.4 Respiratory syncytial virus as the cause of diseases classified elsewhere; J02.9 Acute pharyngitis, unspecified; Z86.16 Personal history of COVID-19

== ENCOUNTER → 2021-02-03 | Outpatient (CLI) | payer OTHER, MEDICAID ==
[~2021-02-03] MED LIST changes: +BENZ200C70 PO; +MUCI600T31 PO
--- NOTE | 2021-02-03 13:28 | REP ---
INDICATION: BRONCHITIS COMPARISON: 12/02/2020 TECHNIQUE: PA and lateral. FINDINGS: The mediastinum and cardiac silhouette are normal. The lung thomason are clear and without acute consolidation, effusion, or pneumothorax. The skeletal structures are intact and normal. IMPRESSION: No acute cardiopulmonary process. <Electronically signed by Julio Pavon > 02/03/21 [id number]
== END ==
LOC: M WUC 13:11
PROVIDERS: ATTEND Physician Assistant Medical
DX: J40 Bronchitis, not specified as acute or chronic (principal)

== ENCOUNTER 2021-03-31 05:53 | Emergency (ER) | payer MEDICAID, OTHER ==
[~2021-03-31] VITALS: Ht 185.4 cm; Wt 71.5 kg
--- OUTSIDE RECORDS SUMMARY | 2021-03-31 05:58 | CCD | Continuity of Care Document ---
Author Author Nicholas CÁRDENAS Organization Unknown Address [address] [facility] [address] [place] [address] Phone [phone] Care Team Providers Care Peer Support Specialist Name Role Phone SUSANNA CÁRDENAS AUTM [phone] Social History Type Date Description Comments Sex Unknown Procedures Date Code Description Status 02/03/2021 74122 Office/Outpatient New Low MDM 30 -44 Minutes Completed Encounters Type Date Location Provider Dx Diagnosis Office Visit 02/03/2021 11:30a [facility] ALEXANDER Stevens J06.9 Acute upper respiratory infe ction, unspecified B97.4 Respiratory syncytial virus causing diseases classd elswhr Assessments Date Code Description Provider 02/03/2021 J06.9 Acute upper respiratory infectio n, unspecified ALEXANDER Juares 02/03/2021 B97.4 Respiratory syncytia l virus as the cause of diseases classified elsewhere ALEXANDER Juares Plan of Treatment Future Appointment(s):* 03/04/2021 11:00 am - ALEXANDER Amezcua at [facility]
--- OUTSIDE RECORDS SUMMARY | 2021-03-31 05:58 | CCD ---
Author Organization Unknown Address [address] [place] [address] Phone [phone] Care Team Providers Care Agency Recruiter Name Role Phone Samantha Marrero Unavailable Unavailable Allergies Code Code System Name Reaction Severity Status Onset NKDA Medications Name Status Start Date Stop Date ibuprofen Active Not available levothyroxine 25 mcg tablet Completed 11/25 nicotine (polacrilex) 4 mg gum Completed 0 12/20/[address]dansetron [address] 1 TABLET ON THE TONGUE EVERY 6 HOURS NEEDED FOR NAUSEA / VOMITING Completed 12/20/2020 propranolol 10 mg tablet Completed 021 Tylenol Active Not available Vitamin D3 50 mcg (2,000 unit) capsule Take 1 capsule every day by oral route. Completed 01/30/2021 Problems Name Status Onset Date Source Hypothyroidism Active 10/05/2018 History Hypertensive Disorder Active 10/05/2018 History Clinical Finding Active 10/05/2018 History Emotional State Finding Active 10/05/2018 History Prediabetes Active 11/02/2018 History Nicotine Dependence Active 03/15/2019 History Patient Asked to Attend Active 08/17/[address] Concept Active 12/21/2019 History Procedures Notes: No known surgical history Results Lab Results Date Name Specimen Result Interpretation Description Value Range Status Address 12/02/2020 CBC W/ Auto Diff Normal White Blood Count 4.7 10 4.0-10.0 10 [facility]: [address] [facility] Normal Red Blood Count 4.39 10 4.30-6.10 10 [facility]: [address] [facility] Low Hemoglobin 13.4 g/dL 13.5-17.5 g/dL [facility]: [address] [facility] Low Hematocrit 39.5 % 42.0-52.0 % [facility]: [address] [facility] Normal Mean Corpuscular Volume 90.0 fL 80.0 -96.0 fL [facility]: [address] [facility] Normal Mean Corpuscular Hemoglobin 30.5 pg 27.0-33.0 pg [facility]: [address] [facility] Normal Mean Corpuscular HGB Conc 33.9 g/dL 32.0-36.5 g/dL [facility]: [address] [facility] Normal Red Cell Distribution Width 12.0 % 1 1.5-14.5 % [facility]: [address] [place] [address] Normal Platelet Count, Automated 191 10 150 -450 10 [facility]: [address] [facility] Normal Neutrophils % 42.4 % 36.0-66.0 % [facility]: [address] [facility] Normal Lymph % 34.2 % 24.0-44.0 % [facility]: [address] [facility] High [place] % 16.7 % 2.0-8.0 % [facility]: 0 [facility] High Eos % 6.1 % 0.0-3.0 % [facility]: 0 [facility] Normal Baso % 0.4 % 0.0-1.0 % [facility]: [address] [place] [address] Normal Immature Granulocyte % 0.2 % 0-3.0 % [facility]: [address] [place] [address] Normal Nucleated Red Blood Cell % 0.0 % 0- 0 % [facility]: [address] [facility] Normal Neutrophils # 2.0 10 1.5-8.5 10 [facility]: [address] [facility] Normal Lymph # 1.6 10 1.5-5.0 10 [facility]: 0 [facility] Normal [place] # 0.8 10 0.0-0.8 10 [facility]: [address] [facility] Normal Eos # 0.3 10 0.0-0.5 10 [facility]: 0 [facility] Normal Baso # 0.0 10 0.0-0.2 10 [facility]: 0 [facility] 12/02/2020 Hepatic Function Panel, Serum Normal AST/SG OT 16 U/L 7-37 U/L [facility]: [address] [facility] Normal ALT/SGPT 18 U/L 12-78 U/L [facility]: 0 [facility] Low Alkaline Phosphatase 42 U/L 45-117 U /L [facility]: 0 [facility] Normal Bilirubin,total 0.4 mg/dL 0.2-1.0 mg /dL [facility]: [address] [place] [address] Normal Bilirubin,direct 0.1 mg/dL 0.0-0.2 m g/dL [facility]: [address] [place] [address] Normal Total Protein 6.8 gm/dL 6.4-8.2 gm/d L [facility]: 0 [facility] Normal Albumin 3.8 gm/dL 3.2-5.2 gm/dL [facility]: [address] [place] [address] Normal Albumin/globulin Ratio 1.3 [facility]: [address] [place] [address] 12/02/2020 BMP, Serum or Plasma Normal Glucose, Fastin g 84 mg/dL 70-100 mg/dL [facility]: [address] [facility] Normal Blood Urea Nitrogen 10 mg/dL 7-18 mg /dL [facility]: 0 [facility] Low Creatinine for GFR 0.69 mg/dL 0.70-1 .30 mg/dL [facility]: 0 [facility] Normal Glomerular Filtration Rate > 60.0 >6 0 [facility]: 0 [facility] Normal Sodium Level 141 mEq/L 136-145 mEq/L [facility]: 0 [facility] Normal Potassium Serum 3.9 mEq/L 3.5-5.1 mE q/L [facility]: [address] [facility] Normal Chloride Level 107 mEq/L 98-107 mEq/ L Final [facility]: [address] [facility] Normal Carbon Dioxide Level 32 mEq/L 21-32 mEq/L Final [facility]: [address] [facility] Low Anion Gap 2 mEq/L 8-16 mEq/L Final [facility]: [address] [facility] Normal Calcium Level 8.6 mg/dL 8.5-10.1 mg/ dL Final [facility]: [address] [facility] 12/02/2020 Lipase, Serum or Plasma Normal Lipase 146 U/L 73-393 U/L Final [facility]: [address] [facility] 12/02/2020 Influenza A/B RSV Covid Amp Normal Influenza a Amplification negative negative [facility]ter: [address] [facility] Normal Influenza B Amplification negative n egative Final [facility]: [address] [facility] Normal RSV Amplification negative negative Final [facility]: [address] [facility] Normal Sars Covid-19 Amplification negative negative Final [facility]: [address] [facility] 11/14/2020 Lipid Panel, Serum Blood venous Normal Shani sterol, Total 147 mg/dL <200 mg/dL Final [facility]: [address] [facility] Blood venous Normal HDL Cholesterol 64 mg/dL > or = 40 mg/dL Final [facility]: [address] [facility] Blood venous Normal Triglycerides 50 mg/dL <150 m g/dL Final [facility]: [address] [facility] Blood venous Normal LDL-cholesterol 71 mg/dL (vish c) Final [facility]: [address] [facility] Blood venous Normal Chol/hdlc Ratio 2.3 (calc) <5 .0 (calc) Final [facility]: [address] [facility] Blood venous Normal Non HDL Cholesterol 83 m g/dL (calc) <130 mg/dL (calc) [facility] [address] [facility] 11/14/2020 MMR Immunity, Serum Normal Measles Ab (IgG), Immune Status 26.30 AU/mL Final [facility]: [address] [facility] Normal Mumps Virus Ab (IgG), Immune Status 87.60 AU/mL [facility]: [address] [facility] Normal Rubella Ab (IgG), Immune Status 8.[address] [facility]: [address] [facility] 11/14/2020 TSH + Free T4, Serum Blood venous Normal Tsh 3. 37 mIU/L 0.40- 4.50 mIU/L Final [facility]: [address] [facility] Blood venous Normal T4, Free 1.4 NG/dL 0.8-1.8 NG /dL [facility]: [address] [facility] 11/14/2020 CMP, Serum or Plasma Blood venous Normal Glucose 87 mg/dL 65-99 mg/dL Final [facility]: [address] [facility] Blood venous Normal Urea Nitrogen (BUN) 20 mg/dL 7-25 mg/dL [facility]: [address] [facility] Blood venous Normal Creatinine 0.84 mg/dL 0.60-1. 35 mg/dL [facility]: [address] [facility] Blood venous Normal eGFR Non-afr. French 1 17 mL/min/1.73m2 > or = 60 mL/min/1.73m2 Final [facility]: [address] [facility] Blood venous Normal eGFR 13 5 mL/min/1.73m2 > or = 60 mL/min/1.73m2 Final [facility]: [address] [facility] Blood venous BUN/creatinine Ratio not applicable (calc) 6- (calc) [facility]: [address] [facility] Blood venous Normal Sodium 139 mmol/L 135-146 mmo l/L Final [facility]: [address] [facility] Blood venous Normal Potassium 4.4 mmol/L 3.5-5.3 mmol/L [facility]: [address] [facility] Blood venous Normal Chloride 102 mmol/L 98-110 mm ol/L [facility]: [address] [facility] Blood venous High Carbon Dioxide 33 mmol/L 20-3 2 mmol/L [facility]: [address] [facility] Blood venous Normal Calcium 10.1 mg/dL 8.6-10.3 m g/dL Final [facility]: [address] [facility] Blood venous Normal Protein, Total 7.4 g/dL 6.1-8 .1 g/dL Final [facility]: [address] [facility] Blood venous Normal Albumin 4.6 g/dL 3.6-5.1 g/dL Final [facility]: [address] [facility] Blood venous Normal Globulin 2.8 g/dL (calc) 1.9- 3.7 g/dL (calc) Final [facility]: [address] [facility] Blood venous Normal Albumin/globulin Ratio 1 .6 (calc) 1.0-2.5 (calc) [facility]: [address] [facility] Blood venous Normal Bilirubin, Total 0.6 mg/dL 0. 2-1.2 mg/dL Final [facility]: [address] [facility] Blood venous Normal Alkaline Phosphatase 40 U/L 3 6-130 U/L Final [facility]: [address] [facility] Blood venous Normal Ast 12 U/L 10-40 U/L Final [facility]: [address] [facility] Blood venous Low Alt 8 U/L 9-46 U/L [facility] CBC W/ Auto Diff Normal White Blood Cell Co unt 5.8 thousand/uL 3.8-10.8 thousand/uL [facility] [address] [facility] Normal Red Blood Cell Count 4.52 mill ion/uL 4.20-5.80 million/uL Final [facility]: [address] [facility] Normal Hemoglobin 13.7 g/dL 13.2-17.1 g/dL Final [facility]: [address] [facility] Normal Hematocrit 39.9 % 38.5-50.0 % [facility]: [address] [facility] Normal Mcv 88.3 fL 80.0-100.0 fL [facility] [address] [facility] Normal Mch 30.3 pg 27.0-33.[address] [facility] [place]: [address] [facility] Normal Mchc 34.3 g/dL 32.0-36.0 g/dL Final [facility]: [address] [facility] Normal Rdw 11.8 % 11.0-15.0 % Final [facility] [place]: [address] [facility] Normal Platelet Count 244 thousand/uL 140-4 00 thousand/uL Final [facility] [place]: [address] [facility] Normal Mpv 12.2 fL 7.5-12.5 fL Final [facility] [place]: [address] [facility] Normal Absolute Neutrophils 2424 cells/uL 1 500-7800 cells/uL Final [facility] [place] [address] [facility] Normal Absolute Lymphocytes 2250 cells/uL 8 50-3900 cells/uL Final [facility] [place]: [address] [facility] Normal Absolute Monocytes 713 cells/uL 200- 950 cells/uL Final [facility] [place]: [address] [facility] Normal Absolute Eosinophils 371 cells/uL 15 -500 cells/uL Final [facility] [place]: [address] [facility] Normal Absolute Basophils 41 cells/uL 0-200 cells/uL Final [facility] [place]: [address] [facility] Normal Neutrophils 41.8 % 38-80 % Final [facility] [place]: [address] [facility] Normal Lymphocytes 38.8 % 15-49 % [facility] [address] [facility] Normal Monocytes 12.3 % 0-13 % Final [facility]: [address] [facility] Normal Eosinophils 6.4 % 0-8 % Final [facility] [place]: [address] [facility] Normal Basophils 0.7 % 0-2 % Final [facility] [place]: [address] [facility] 11/14/2020 Hepatitis B Surface Ab, Qualitative, Serum ABNO RMAL Hepatitis B Surface Antibody Ql reactive non-reactive Final [facility] [place]: [address] [facility] 11/14/2020 Varicella-zoster Igg Ab Screen, Serum Normal Varicella Zoster Virus Antibody (IgG) 1027.00 index Final [facility] [place]: [address] [facility] 11/14/2020 Vitamin D, 25-Hydroxy, Total, Serum Blood venous Low Vitamin D,25-Oh,total,ia 23 NG/mL 30-100 NG/mL Final [facility] [place]: [address], [place] 11/14/2020 HbA1C (Hemoglobin a1C), Blood Blood venous Normal Hemoglobin a1C 5.1 % of total HGB <5.7 % of total HGB Final [facility] [place]: [address], [place] 08/13/2020 Rubia Covid Antigen High Rubia Covid Anti gen positive negative Final [facility]: [address] [facility] Past Encounters 01/30/2021 Anxiety Disorder Angela Frye MD: [address] [place] [phone], Ph. 12/20/2020 Mixed Anxiety and Depressive Disorder; Fatigue; Abdominal Pain; Decreased Vitamin D SIDDHARTHA Garcia-BC: [address] [place] [phone], Ph. 12/05/2020 Administration of SARS-CoV-2 Antigen Vaccine Carley Comer PA-C: [address] [place] [phone], Ph. 11/14/2020 Administration of SARS-CoV-2 Antigen Vaccine Geo Miller MD: [address] [place] [phone], Ph. 11/14/2020 Geo Miller MD: [address] [place] [phone], Ph. Social History Tobacco Smoking Status Former Smoker Vaccine List Vaccine Type COVID-19, mRNA, LNP-S, PF, 30 mcg/0.3 mL dose .3 mL 10.3 mL Plan of Care Patient Instructions Please continue medications as prescribed. Please try to maintain good nutrition, adequate rest, adequate physical activities and adequate intake of water daily. Reminders Provider Appointments None recorded. Lab None recorded. Referral None recorded. Procedures None recorded. Surgeries None recorded. Imaging None recorded. Vitals 01/30/2021 09:45AM BH INTAKE 60 Height Weight BMI 73 in 161 lbs 16 oz 21.4 kg/m2 12/20/2020 10:20AM ESTABLISHED [id number] Height Weight BMI Blood Pressure 73 in 153 lbs 16 oz 20.3 kg/m2 111/74 mm[Hg] 11/14/2020 08:40AM NURSE LAB COLLECTION Height 73 in 12/21/2019 Height Weight BMI Blood Pressure 73 in 163 lbs 2.08 oz 21.60 kg/m2 104/72 mm[H g] 08/17/2019 Height Weight BMI Blood Pressure 73 in 162 lbs 21.45 kg/m2 101/70 mm[Hg] 05/18/2019 Height Weight BMI Blood Pressure 73 in 158 lbs 4 oz 20.95 kg/m2 114/81 mm[Hg] 03/15/2019 Height Weight BMI Blood Pressure 73 in 166 lbs 3.2 oz 22.01 kg/m2 128/78 mm[Hg ] 11/02/2018 Height Weight BMI Blood Pressure 73 in 167 lbs 22.11 kg/m2 118/76 mm[Hg] 10/05/2018 Height Weight BMI Blood Pressure 73 in 168 lbs 22.25 kg/m2 111/77 mm[Hg]
--- OUTSIDE RECORDS SUMMARY | 2021-03-31 05:59 | CCD ---
Author Author [facility] Organization [facility] Address Unknown Phone Unavailable Care Team Providers Care Iv Technician Name Role Phone Joe Miller MD Unavailable Unavailable Joe Miller MD Unavailable Unavailable Joe Miller MD Unavailable Unavailable Joe Miller MD Unavailable Unavailable Joe Miller MD Unavailable Unavailable Joe Miller MD Unavailable Unavailable Joe Miller MD Unavailable Unavailable Joe Miller MD Unavailable Unavailable Joe Miller MD Unavailable Unavailable Joe Miller MD Unavailable Unavailable Joe Miller MD Unavailable Unavailable Joe Miller MD Unavailable Unavailable Joe Miller MD Unavailable Unavailable Joe Miller MD Unavailable Unavailable Joe Miller MD Unavailable Unavailable Joe Miller MD Unavailable Unavailable Joe Miller MD Unavailable Unavailable Joe Miller MD Unavailable Unavailable Joe Miller MD Unavailable Unavailable Joe Miller MD Unavailable Unavailable Joe Miller MD Unavailable Unavailable Joe Miller MD Unavailable Unavailable Joe Miller MD Unavailable Unavailable Joe Miller MD Unavailable Unavailable Joe Miller MD Unavailable Unavailable Joe Miller MD Unavailable Unavailable Joe Miller MD Unavailable Unavailable Joe Miller MD Unavailable Unavailable Joe Miller MD Unavailable Unavailable Joe Miller MD Unavailable Unavailable Joe Miller MD Unavailable Unavailable Joe Miller MD Unavailable Unavailable Joe Miller MD Unavailable Unavailable Joe Miller MD Unavailable Unavailable Joe Miller MD Unavailable Unavailable Joe Miller MD Unavailable Unavailable Joe Miller MD Unavailable Unavailable Joe Miller MD Unavailable Unavailable Joe Miller MD Unavailable Unavailable Joe Miller MD Unavailable Unavailable Joe Miller MD Unavailable Unavailable Joe Miller MD Unavailable Unavailable Joe Miller MD Unavailable Unavailable Joe Miller MD Unavailable Unavailable Joe Miller MD Unavailable Unavailable Joe Miller MD Unavailable Unavailable Joe Miller MD Unavailable Unavailable Joe Miller MD Unavailable Unavailable Joe Miller MD Unavailable Unavailable Joe Miller MD Unavailable Unavailable Joe Miller MD Unavailable Unavailable Joe Miller MD Unavailable Unavailable Joe Miller MD Unavailable Unavailable Joe Miller MD Unavailable Unavailable Joe Miller MD Unavailable Unavailable Joe Miller MD Unavailable Unavailable Joe Miller MD Unavailable Unavailable Joe Miller MD Unavailable Unavailable Joe Miller MD Unavailable Unavailable Joe Miller MD Unavailable Unavailable Joe Miller MD Unavailable Unavailable Joe Miller MD Unavailable Unavailable Joe Miller MD Unavailable Unavailable Joe Miller MD Unavailable Unavailable Joe Miller MD Unavailable Unavailable Joe Miller MD Unavailable Unavailable Joe Miller MD Unavailable Unavailable Joe Miller MD Unavailable Unavailable Joe Miller MD Unavailable Unavailable Joe Miller MD Unavailable Unavailable Joe Miller MD Unavailable Unavailable Joe Miller MD Unavailable Unavailable Joe Miller MD Unavailable Unavailable Joe Miller MD Unavailable Unavailable Jeo Miller MD Unavailable Unavailable Joe Miller MD Unavailable Unavailable Joe Miller MD Unavailable Unavailable Joe Miller MD Unavailable Unavailable Joe Miller MD Unavailable Unavailable Joe Miller MD Unavailable Unavailable Joe Miller MD Unavailable Unavailable Joe Miller MD Unavailable Unavailable Joe Miller MD Unavailable Unavailable Joe Miller MD Unavailable Unavailable Joe Miller MD Unavailable Unavailable oJe Miller MD Unavailable Unavailable Joe Miller MD Unavailable Unavailable Joe Miller MD Unavailable Unavailable Joe Miller MD Unavailable Unavailable Joe Miller MD Unavailable Unavailable Joe Miller MD Unavailable Unavailable Joe Miller MD Unavailable Unavailable Joe Miller MD Unavailable Unavailable Joe Miller MD Unavailable Unavailable Maring, Jake PA Unavailable Unavailable Maring, Jake PA Unavailable Unavailable Maring, Jake PA Unavailable Unavailable Maring, Jake PA Unavailable Unavailable Maring, Jake PA Unavailable Unavailable Maring, Jake PA Unavailable Unavailable Maring, Jake PA Unavailable Unavailable Maring, Jake PA Unavailable Unavailable Maring, Jake PA Unavailable Unavailable Maring, Jake PA Unavailable Unavailable Maring, Jake PA Unavailable Unavailable Maring, Jake PA Unavailable Unavailable Maring, Jake PA Unavailable Unavailable Maring, Jake PA Unavailable Unavailable Maring, Jake PA Unavailable Unavailable Maring, Jake PA Unavailable Unavailable Janes, Samantha SENIOR ARCHITECTURAL DESIGNER SENIOR ARCHITECTURAL DESIGNER Unavailable Unavailable Pricilla Frye MD Unavailable Unavailable Pricilla Frye MD Unavailable Unavailable Pricilla Frye MD Unavailable Unavailable Pricilla Frye MD Unavailable Unavailable Pricilla Frye MD Unavailable Unavailable Pricilla Frye MD Unavailable Unavailable Pricilla Frye MD Unavailable Unavailable Pricilla Frye MD Unavailable Unavailable Pricilla Frye MD Unavailable Unavailable LAROCK, Henry CHAVEZ HIGHW[address] MAINTENANCE SUPERVISOR Unavailable Unavailable LAROCK, Henry CHAVEZ HIGHW[address] MAINTENANCE SUPERVISOR Unavailable Unavailable LAROCK, Henry CHAVEZ [address]HW[address] MAINTENANCE SUPERVISOR Unavailable Unavailable LAROCK, Henry CHAVEZ [address]HW[address] MAINTENANCE SUPERVISOR Unavailable Unavailable LAROCK, Henry CHAVEZ [address] MAINTENANCE SUPERVISOR Unavailable Unavailable LAROCK, Henry CHAVEZ [address] MAINTENANCE SUPERVISOR Unavailable Unavailable LAROCK, Henry CHAVEZ [address] MAINTENANCE SUPERVISOR Unavailable Unavailable LAROCK, Henry CHAVEZ [address]HW[address] MAINTENANCE SUPERVISOR Unavailable Unavailable LAROCK, Henry CHAVEZ [address] MAINTENANCE SUPERVISOR Unavailable Unavailable LAROCK, Henry CHAVEZ [address] MAINTENANCE SUPERVISOR Unavailable Unavailable LAROCK, Henry CHAVEZ [address] MAINTENANCE SUPERVISOR Unavailable Unavailable LAROCK, Henry CHAVEZ [address] MAINTENANCE SUPERVISOR Unavailable Unavailable LAROCK, Henry [address]AVE[address] MAINTENANCE SUPERVISOR Unavailable Unavailable LAROCK, Henry CHAVEZ [address] MAINTENANCE SUPERVISOR Unavailable Unavailable LAROCK, Henry CHAVEZ [address] MAINTENANCE SUPERVISOR Unavailable Unavailable LAROCK, Henry CHAVEZ [address]HW[address] MAINTENANCE SUPERVISOR Unavailable Unavailable LAROCK, Henry CHAVEZ [address]HW[address] MAINTENANCE SUPERVISOR Unavailable Unavailable LAROCK, Henry HCAVEZ HIGHW[address] MAINTENANCE SUPERVISOR Unavailable Unavailable LAROCK, Henry CHAVE[address] MAINTENANCE SUPERVISOR Unavailable Unavailable LAROCK, Henry CHAVE[address] MAINTENANCE SUPERVISOR Unavailable Unavailable LAROCK, Henry CHAVE[address] MAINTENANCE SUPERVISOR Unavailable Unavailable LAROCK, Henry CHAVEZ [address]HW[address] MAINTENANCE SUPERVISOR Unavailable Unavailable Janes, A Samatnha SENIOR ARCHITECTURAL DESIGNER Unavailable Unavailable Janes, A Samantha SENIOR ARCHITECTURAL DESIGNER Unavailable Unavailable Janes, A Samantha SENIOR ARCHITECTURAL DESIGNER Unavailable Unavailable Janes, A Samantha SENIOR ARCHITECTURAL DESIGNER Unavailable Unavailable Janes, A Samantha SENIOR ARCHITECTURAL DESIGNER Unavailable Unavailable Janes, A Samantha SENIOR ARCHITECTURAL DESIGNER Unavailable Unavailable Janes, A Samantha SENIOR ARCHITECTURAL DESIGNER Unavailable Unavailable Janes, A Samantha SENIOR ARCHITECTURAL DESIGNER Unavailable Unavailable Janes, A Samantha SENIOR ARCHITECTURAL DESIGNER Unavailable Unavailable Janes, A Samantha SENIOR ARCHITECTURAL DESIGNER Unavailable Unavailable Janes, A Samantha SENIOR ARCHITECTURAL DESIGNER Unavailable Unavailable Janes, A Samantha SENIOR ARCHITECTURAL DESIGNER Unavailable Unavailable Janes, A Samantha SENIOR ARCHITECTURAL DESIGNER Unavailable Unavailable Janes, A Samantha SENIOR ARCHITECTURAL DESIGNER Unavailable Unavailable Janes, A Samantha SENIOR ARCHITECTURAL DESIGNER Unavailable Unavailable Janes, A Samantha SENIOR ARCHITECTURAL DESIGNER Unavailable Unavailable Janes, A Samantha SENIOR ARCHITECTURAL DESIGNER Unavailable Unavailable Janes, A Samantha SENIOR ARCHITECTURAL DESIGNER Unavailable Unavailable Janes, A Samantha SENIOR ARCHITECTURAL DESIGNER Unavailable Unavailable Janes, A Samantha SENIOR ARCHITECTURAL DESIGNER Unavailable Unavailable Janes, A Samantha SENIOR ARCHITECTURAL DESIGNER Unavailable Unavailable Janes, A Samantha SENIOR ARCHITECTURAL DESIGNER Unavailable Unavailable Janes, A Samantha SENIOR ARCHITECTURAL DESIGNER Unavailable Unavailable Janes, A Samantha SENIOR ARCHITECTURAL DESIGNER Unavailable Unavailable Janes, A Samantha SENIOR ARCHITECTURAL DESIGNER Unavailable Unavailable Janes, A Samantha SENIOR ARCHITECTURAL DESIGNER Unavailable Unavailable Janes, A Samantha SENIOR ARCHITECTURAL DESIGNER Unavailable Unavailable Janes, A Samantha SENIOR ARCHITECTURAL DESIGNER Unavailable Unavailable Janes, A Samantha SENIOR ARCHITECTURAL DESIGNER Unavailable Unavailable Janes, A Samantha SENIOR ARCHITECTURAL DESIGNER Unavailable Unavailable Janes, A Samantha SENIOR ARCHITECTURAL DESIGNER Unavailable Unavailable TONTARSKI, G SUSANNA PA Unavailable Unavailable TONTARSKI, G SUSANNA PA Unavailable Unavailable TONTARSKI, G SUSANNA PA Unavailable Unavailable TONTARSKI, G SUSANNA PA Unavailable Unavailable TONTARSKI, G SUSANNA PA Unavailable Unavailable TONTARSKI, G SUSANNA PA Unavailable Unavailable TONTARSKI, G SUSANNA PA Unavailable Unavailable TONTARSKI, G SUSANNA PA Unavailable Unavailable TONTARSKI, G SUSANNA PA Unavailable Unavailable TONTARSKI, G SUSANNA PA Unavailable Unavailable TONTARSKI, G SUSANNA PA Unavailable Unavailable TONTARSKI, G SUSANNA PA Unavailable Unavailable TONTARSKI, G SUSANNA PA Unavailable Unavailable TONTARSKI, G SUSANNA PA Unavailable Unavailable TONTARSKI, G SUSANNA PA Unavailable Unavailable TONTARSKI, G SUSANNA PA Unavailable Unavailable TONTARSKI, G SUSANNA PA Unavailable Unavailable TONTARSKI, G SUSANNA PA Unavailable Unavailable TONTARSKI, G SUSANNA PA Unavailable Unavailable TONTARSKI, G SUSANNA PA Unavailable Unavailable TONTARSKI, G SUSANNA PA Unavailable Unavailable TONTARSKI, G SUSANNA PA Unavailable Unavailable TONTARSKI, G SUSANNA PA Unavailable Unavailable TONTARSKI, G SUSANNA PA Unavailable Unavailable TONTARSKI, G SUSANNA PA Unavailable Unavailable TONTARSKI, G SUSANNA PA Unavailable Unavailable TONTARSKI, G SUSANNA PA Unavailable Unavailable TONTARSKI, G SUSANNA PA Unavailable Unavailable TONTARSKI, G SUSANNA PA Unavailable Unavailable TONTARSKI, G SUSANNA PA Unavailable Unavailable TONTARSKI, G SUSANNA PA Unavailable Unavailable TONTARSKI, G SUSANNA PA Unavailable Unavailable TONTARSKI, G SUSANNA PA Unavailable Unavailable TONTARSKI, G SUSANNA PA Unavailable Unavailable TONTARSKI, G SUSANNA PA Unavailable Unavailable TONTARSKI, G SUSANNA PA Unavailable Unavailable TONTARSKI, G SUSANNA PA Unavailable Unavailable TONTARSKI, G SUSANNA PA Unavailable Unavailable TONTARSKI, G SUSANNA PA Unavailable Unavailable TONTARSKI, G SUSANNA PA Unavailable Unavailable TONTARSKI, G SUSANNA PA Unavailable Unavailable TONTARSKI, G SUSANNA PA Unavailable Unavailable TONTARSKI, G SUSANNA PA Unavailable Unavailable TONTARSKI, G SUSANNA PA Unavailable Unavailable TONTARSKI, G SUSANNA PA Unavailable Unavailable TONTARSKI, G SUSANNA PA Unavailable Unavailable TONTARSKI, G SUSANNA PA Unavailable Unavailable TONTARSKI, G SUSANNA PA Unavailable Unavailable Janes, A Samantha SENIOR ARCHITECTURAL DESIGNER Unavailable Unavailable Janes, A Samantha SENIOR ARCHITECTURAL DESIGNER Unavailable Unavailable Janes, A Samantha SENIOR ARCHITECTURAL DESIGNER Unavailable Unavailable Janes, A Samantha SENIOR ARCHITECTURAL DESIGNER Unavailable Unavailable Janes, A Samantha SENIOR ARCHITECTURAL DESIGNER Unavailable Unavailable Janes, A Samantha SENIOR ARCHITECTURAL DESIGNER Unavailable Unavailable Janes, A Samantha SENIOR ARCHITECTURAL DESIGNER Unavailable Unavailable Janes, A Samantha SENIOR ARCHITECTURAL DESIGNER Unavailable Unavailable Janes, A Samantha SENIOR ARCHITECTURAL DESIGNER Unavailable Unavailable Janes, A Samantha SENIOR ARCHITECTURAL DESIGNER Unavailable Unavailable Janes, A Samantha SENIOR ARCHITECTURAL DESIGNER Unavailable Unavailable Janes, A Samantha SENIOR ARCHITECTURAL DESIGNER Unavailable Unavailable Janes, A Samantha SENIOR ARCHITECTURAL DESIGNER Unavailable Unavailable Janes, A Samantha SENIOR ARCHITECTURAL DESIGNER Unavailable Unavailable Janes, A Samantha SENIOR ARCHITECTURAL DESIGNER Unavailable Unavailable Janes, A Samantha SENIOR ARCHITECTURAL DESIGNER Unavailable Unavailable Janes, A Samantha SENIOR ARCHITECTURAL DESIGNER Unavailable Unavailable Janes, A Samantha SENIOR ARCHITECTURAL DESIGNER Unavailable Unavailable Janes, A Samantha SENIOR ARCHITECTURAL DESIGNER Unavailable Unavailable Janes, A Samantha SENIOR ARCHITECTURAL DESIGNER Unavailable Unavailable Janes, A Samantha SENIOR ARCHITECTURAL DESIGNER Unavailable Unavailable Janes, A Samantha SENIOR ARCHITECTURAL DESIGNER Unavailable Unavailable Janes, A Samantha SENIOR ARCHITECTURAL DESIGNER Unavailable Unavailable Janes, A Samantha SENIOR ARCHITECTURAL DESIGNER Unavailable Unavailable Janes A Samantha SENIOR ARCHITECTURAL DESIGNER Unavailable Unavailable Janes, A Samantha SENIOR ARCHITECTURAL DESIGNER Unavailable Unavailable Janes, A Samantha SENIOR ARCHITECTURAL DESIGNER Unavailable Unavailable Janes, A Samantha SENIOR ARCHITECTURAL DESIGNER Unavailable Unavailable Janes, A Samantha SENIOR ARCHITECTURAL DESIGNER Unavailable Unavailable Janes, A Samantha SENIOR ARCHITECTURAL DESIGNER Unavailable Unavailable Janes, A Samantha SENIOR ARCHITECTURAL DESIGNER Unavailable Unavailable Scordo, M Carley PA Unavailable Unavailable Scordo, M Carley PA Unavailable Unavailable Scordo, M Carley PA Unavailable Unavailable Scordo, M Carley PA Unavailable Unavailable Scordo, M Carlye PA Unavailable Unavailable Scordo, M Carley PA Unavailable Unavailable Scordo, M Carley PA Unavailable Unavailable Scordo, M Carley PA Unavailable Unavailable Scordo, M Carley PA Unavailable Unavailable Scordo, M Carley PA Unavailable Unavailable Scordo, M Carley PA Unavailable Unavailable Scordo, M Carley PA Unavailable Unavailable Scordo, M Carley PA Unavailable Unavailable Scordo, M Carley PA Unavailable Unavailable Scordo, M Carley PA Unavailable Unavailable Scordo, M Carley PA Unavailable Unavailable Scordo, M Carley PA Unavailable Unavailable Scordo, M Carley PA Unavailable Unavailable Scordo, M Carley PA Unavailable Unavailable Scordo, M Carley PA Unavailable Unavailable Scordo, M Carley PA Unavailable Unavailable Scordo, M Carley PA Unavailable Unavailable Scordo, M Carley PA Unavailable Unavailable Scordo, M Carley PA Unavailable Unavailable Scordo, M Carley PA Unavailable Unavailable Scordo, M Carley PA Unavailable Unavailable Scordo, M Carley PA Unavailable Unavailable Scordo, M Carley PA Unavailable Unavailable Scordo, M Carley PA Unavailable Unavailable Scordo, M Carley PA Unavailable Unavailable Scordo, M Carley PA Unavailable Unavailable Scordo, M Carley PA Unavailable Unavailable Scordo, M Carley PA Unavailable Unavailable Scordo, M Carley PA Unavailable Unavailable Scordo, M Carley PA Unavailable Unavailable Scordo, M Carley PA Unavailable Unavailable Scordo, M Carley PA Unavailable Unavailable Scordo, M Carley PA Unavailable Unavailable Scordo, M Carley PA Unavailable Unavailable Scordo, M Carley PA Unavailable Unavailable Scordo, M Carley PA Unavailable Unavailable Scordo, M Carley PA Unavailable Unavailable Scordo, M Carley PA Unavailable Unavailable Scordo, M Carley PA Unavailable Unavailable Scordo, M Carley PA Unavailable Unavailable Scordo, M Carley PA Unavailable Unavailable Scordo, M Carley PA Unavailable Unavailable Re-disclosure Warning The records that you are about to access may contain information from federally-assisted alcohol or drug abuse programs. If such information is present, then the following federally mandated warning applies: This information has been disclosed to you from records protected by federal confidentiality rules (42 CFR part 2). The federal rules prohibit you from making any further disclosure of this information unless further disclosure is expressly permitted by the written consent of the person to whom it pertains or as otherwise permitted by 42 CFR part 2. A general authorization for the release of medical or other information is NOT sufficient for this purpose. The Federal rules restrict any use of the information to criminally investigate or prosecute any alcohol or drug abuse patient.The records that you are about to access may contain highly sensitive health information, the redisclosure of which is protected by Article 27-F of the [facility] Public Health law. If you continue you may have access to information: Regarding HIV / AIDS; Provided by facilities licensed or operated by the [facility] Office of Mental Health; or Provided by the [facility] Office for People With Developmental Disabilities. If such information is present, then the following [facility] mandated warning applies: This information has been disclosed to you from confidential records which are protected by state law. State law prohibits you from making any further disclosure of this information without the specific written consent of the person to whom it pertains, or as otherwise permitted by law. Any unauthorized further disclosure in violation of state law may result in a fine or prison sentence or both. A general authorization for the release of medical or other information is NOT sufficient authorization for further disc losure. Allergies and Adverse Reactions Type Description Substance Reaction Status Data Source(s ) Allergy to substance Allergy to substance Allergy to substance [facility] ([facility]) Allergy to substance Allergy to substance Allergy to substance [facility] ([facility]) Allergy to substance Allergy to substance Allergy to substance [facility] ([facility]) Encounters Encounter Providers Location Date Indications Data Source(s ) Outpatient Attender: SUSANNA graff 02/03/2021 11:30:00 AM EDT [facility] ([facility]) Angela Frye MD: [address], [place] [address], Ph. Attender: Angela Frye MD [facility] Medical 01/30/2021 12:00:00 AM EDT [facility]) Samantha Marrero [facility]: [address], [place] [address], Ph. Attender: Samantha Marrero [facility] Medical 12/20/2020 12:00:00 AM EDT [facility] ([facility]) Samantha Marrero [facility]: [address], [place] [address], Ph. Attender: Samantha Marrero [facility] Medical 12/20/2020 12:00:00 AM EDT [facility] ([facility]) Carley Comer PA-C: [address], [place] [address], Ph. Attender: Carley MUNOZ [facility] Medical 12/05/2020 12:00:00 AM EDT [facility] ([facility]) Carley Comer PA-C: [address], [place] [address], Ph. Attender: Carley MUNOZ [facility] Medical 12/05/2020 12:00:00 AM EDT [facility] ([facility]) Carley Comer PA-C: [address], [place] [address], Ph. Attender: Carley MUNOZ [facility] Medical 12/05/2020 12:00:00 AM EDT [facility] ([facility]) Geo Miller MD: [address] [place] [address], Ph. Attender: Geo Miller MD [facility] Medical 11/14/2020 12:00:00 AM EDT [facility] ([facility]) Geo Miller MD: [address] [place] [address], Ph. Attender: Geo Miller MD [facility] Medical 11/14/2020 12:00:00 AM EDT [facility] ([facility]) Geo Miller MD: [address] [place] [address], Ph. Attender: Geo Miller MD [facility] Medical 11/14/2020 12:00:00 AM EDT [facility] ([facility]) Geo Miller MD: [address] [place] [address], Ph. Attender: Geo Miller MD [facility] Medical 11/14/2020 12:00:00 AM EDT [facility] ([facility]) Geo Milelr MD: [address] [place] [address], Ph. Attender: Geo Miller MD [facility] Medical 11/14/2020 12:00:00 AM EDT [facility] ([facility]) Geo Miller MD: [address] [place] [address], Ph. Attender: Geo Miller MD [facility] Medical 11/14/2020 12:00:00 AM EDT [facility] ([facility]) Geo Miller MD: [address] [place] [address], Ph. Attender: Geo Miller MD [facility] Medical 11/14/2020 12:00:00 AM EDT [facility] ([facility]) Geo Miller MD: [address] [place] [address], Ph. Attender: Geo Miller MD [facility] Medical 11/14/2020 12:00:00 AM EDT [facility] ([facility]) Geo Miller MD: [address] [place] [address], Ph. Attender: Geo Miller MD [facility] Medical 11/14/2020 12:00:00 AM EDT [facility] ([facility]) Geo Miller MD: [address] [place] [address], Ph. Attender: Geo Miller MD [facility] Medical 11/14/2020 12:00:00 AM EDT [facility] ([facility]) Outpatient Attender: KATHY PORTILLO NP 07/27 04:34:46 PM EDT - 08/23/2020 05:16:32 PM EDT [facility] ([facility] ) Outpatient Attender: Jake MUNOZ 05/14/19 12:21:47 PM EST - 05/14/2020 12:51:09 PM EST [facility] ([facility] ) Outpatient Attender: Samantha CARL FP 02/10/2020 03:1 1:02 PM EDT [facility] Outpatient Attender: SIDDHARTHA CARL 02/10/2020 03:11:00 P M EDT [facility] Immunizations Vaccine Date Status Description Data Source(s) COVID-19, mRNA, LNP-S, PF, 30 mcg/0.3 mL dose 12/05/2020 11: 10:06 AM EDT completed .3 mL [facility] ([facility]) COVID-19, mRNA, LNP-S, PF, 30 mcg/0.3 mL dose 12/05/2020 11: 10:06 AM EDT completed .3 mL [facility] ([facility]) COVID-19, mRNA, LNP-S, PF, 30 mcg/0.3 mL dose 12/05/2020 11: 10:06 AM EDT completed .3 mL [facility] ([facility]) COVID-19 VACCINE Pfizer 12/05/2020 12:00:00 AM EDT completed [place] Vaccine Series Complete: YESThis Data wa s Submitted to [facility] Via [employer]. COVID-19, mRNA, LNP-S, PF, 30 mcg/0.3 mL dose 11/14/2020 09: 56:03 AM EDT completed .3 mL [facility] ([facility]) COVID-19, mRNA, LNP-S, PF, 30 mcg/0.3 mL dose 11/14/2020 09: 56:03 AM EDT completed .3 mL [facility] ([facility]) COVID-19, mRNA, LNP-S, PF, 30 mcg/0.3 mL dose 11/14/2020 09: 56:03 AM EDT completed .3 mL [facility] ([facility]) COVID-19, mRNA, LNP-S, PF, 30 mcg/0.3 mL dose 11/14/2020 09: 56:03 AM EDT completed .3 mL [facility] ([facility]) COVID-19, mRNA, LNP-S, PF, 30 mcg/0.3 mL dose 11/14/2020 09: 56:03 AM EDT completed .3 mL [facility] ([facility]) COVID-19 VACCINE Pfizer 11/14/2020 12:00:00 AM EDT completed [place] Vaccine Series Complete: NOThis Data was Submitted to [facility] Via [employer]. Medications Medication Brand Name Start Date Product Form Dose Route Admi nistrative Instructions Pharmacy Instructions Status Indications Reaction Description Data Source(s) Ondansetron 4 MG Disintegrating Oral Tablet ONDANSETRON 02/02/2021 12:00:00 AM EDT tablet,disintegrating 16 DISSOLVE 1 TABLET IN MOUTH EVERY 6 TO 8 HOURS NEEDED FOR NAUSEA AND VOMITING DISSOLVE 1 TABLET IN MOUTH EVERY 6 TO 8 HOURS NEEDED FOR NAUSEA AND VOMITING SOLD: 02/02/2021 [facility] 200 mg 02/02/2021 12:00:00 AM EDT capsule 30 TAKE ONE CAPSULE BY MOUTH THREE TIMES A DAY NEEDED FOR COUGH TAKE ONE CAPSULE BY MOUTH THREE TIMES A DAY NEEDED FOR COUGH SOLD: 02/02/2021 [facility] Ondansetron 4 MG Disintegrating Oral Tablet ONDANSETRON 08/14/2020 12:00:00 AM EDT tablet,disintegrating [address] 1 TA BLET ON THE TONGUE EVERY 6 HOURS NEEDED FOR NAUSEA / VOMITING PLACE 1 TABLET ON THE TONGUE EVERY 6 MARIV[address] RS NEEDED FOR NAUSEA / VOMITING SOLD: 08/15/2020 [facility] Propranolol Hydrochloride 10 MG Oral Tablet propranolo l 10 mg tablet propranolol 10 mg tablet completed p ropranolol hydrochloride 10 MG Oral Tablet ZACHERY ([facility]) Propranolol Hydrochloride 10 MG Oral Tablet propranolo l 10 mg tablet propranolol 10 mg tablet completed p ropranolol hydrochloride 10 MG Oral Tablet ZACHERY ([facility]) Ondansetron 4 MG Disintegrating Oral Tab let ondansetron [address] 1 TABLET ON THE TONGUE EVERY 6 HOURS NEEDED FOR NAUSEA / VOMITING ondansetron 4 mg disintegrating tablet P LACE 1 TABLET ON THE TONGUE EVERY 6 HOURS NEEDED FOR NAUSEA / VOMITING completed ondansetron 4 MG Disintegrating Oral Tablet ZACHERY ([facility]) Ondansetron 4 MG Disintegrating Oral Tab let ondansetron [address] 1 TABLET ON THE TONGUE EVERY 6 HOURS NEEDED FOR NAUSEA / VOMITING ondansetron 4 mg disintegrating tablet P LACE 1 TABLET ON THE TONGUE EVERY 6 HOURS NEEDED FOR NAUSEA / VOMITING completed ondansetron 4 MG Disintegrating Oral Tablet ZACHERY ([facility]) Cholecalciferol 2000 UNT Oral Capsule Vi tamin D3 50 mcg (2,000 unit) capsule Take 1 capsule every day by oral route. Vitamin D3 50 mcg (2,000 unit) capsule Take 1 capsule every day by oral route. 1 capsule(s) completed cholecalciferol 0.05 MG Oral Capsule ZACHERY ([facility]) Nicotine 4 MG Chewing Gum nicotine (polacrilex) 4 mg g um nicotine (polacrilex) 4 mg gum completed nicotine 4 MG C hewing Gum ZACHERY ([facility]) Levothyroxine Sodium 0.025 MG Oral Tablet levothyroxin e 25 mcg tablet levothyroxine 25 mcg tablet completed levothyroxine sodium 0.025 MG Oral Tablet ZACHERY ([facility]) Levothyroxine Sodium 0.025 MG Oral Tablet levothyroxin e 25 mcg tablet levothyroxine 25 mcg tablet completed levothyroxine sodium 0.025 MG Oral Tablet ZACHERY ([facility]) Nicotine 4 MG Chewing Gum nicotine (polacrilex) 4 mg g um nicotine (polacrilex) 4 mg gum completed nicotine 4 MG C hewing Gum ZACHERY ([facility]) Insurance Providers Payer name Policy type / Coverage type Policy ID Covered republican ID Covered republican's relationship to saenz Policy Saenz Plan Information Medicaid S [id number] S [id number] [facility] P [id number] S [id number] SELF PAY 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 [id number] Self [id number] RPR- Needs Payer Match [id number] Self [id number] [facility] Commercial Insurance Co. [id number] Self [id number] [facility] ACTIVE DUTY [id number] SP [id number] [facility] COMMUNITY PLAN [facility] [id number] SP [id number] [facility] [id number] SP [id number] [facility] [id number] SP [id number] MEDICAID [id number] SP [id number] [facility] [id number] SP [id number] Medicaid S [id number] S [id number] MEDICAID [id number] SP [id number] Managed Care [facility] P [id number] S [id number] Medicaid S UNAVAILABLE S UNAVAILA BLE [facility] COMMUNITY PLAN [facility] [place] [id number] SP [id number] SELF PAY ONLY NONE SP NONE [place] [id number] SP [id number] Problems, Conditions, and Diagnoses No Information Surgeries/Procedures Procedure Description Date Indications Data Source(s) OFFICE OUTPATIENT NEW 30 MINUTES 02/03/2021 12:00:00 A M EDT [facility] (Ho Medina MD) Results ID Date Data Source [id number] 02/10/2021 08:08:00 PM EDT [facility] Name Value Range Interpretation Code Description Data Cassi rce(s) Supporting Document(s) SARS coronavirus 2 RdRp gene Covid_negative [facility] This lab was ordered by [facility] and reported by [employer]. ID Date Data Source [id number] 02/02/2021 12:36:00 AM EDT [facility] Name Value Range Interpretation Code Description Data Cassi rce(s) Supporting Document(s) SARS-CoV-2 (COVID 19) NEGATIVE - SARS-CoV-2 (COVID19) [facility] This lab was ordered by [facility] a nd reported by [facility]. ID Date Data Source [id number] 12/18/2020 05:17:00 PM EDT [facility] Name Value Range Interpretation Code Description Data Cassi rce(s) Supporting Document(s) SARS coronavirus 2 Ag Covid_negative [place] [facility] This lab was ordered by [facility] and reported by [employer]. ID Date Data Source [id number] 12/02/2020 02:28:00 PM EDT [facility]) Name Value Range Interpretation Code Description Data Cassi rce(s) Supporting Document(s) influenza B amplification negative negative Influenza B Amplification [facility]) influenza A amplification negative negative Influenza a Amplification [facility]) sars covid-19 amplification negative negative Sars Cov id-19 Amplification [facility]) RSV amplification negative negative RSV Amplification [facility]) ID Date Data Source [id number] 12/02/2020 02:28:00 PM EDT [facility]) Name Value Range Interpretation Code Description Data Cassi rce(s) Supporting Document(s) influenza A amplification negative negative Influenza a Amplification [facility]) influenza B amplification negative negative Influenza B Amplification [facility] ([facility]) RSV amplification negative negative RSV Amplification [facility] ([facility]) sars covid-19 amplification negative negative Sars Cov id-19 Amplification [facility]) ID Date Data Source [id number] 12/02/2020 02:28:00 PM EDT [facility]) Name Value Range Interpretation Code Description Data Cassi rce(s) Supporting Document(s) influenza A amplification negative negative Influenza a Amplification [facility] ([facility]) RSV amplification negative negative RSV Amplification [facility] ([facility]) influenza B amplification negative negative Influenza B Amplification [facility] ([facility]) sars covid-19 amplification negative negative Sars Cov id-19 Amplification [facility]) ID Date Data Source [id number] 12/02/2020 02:28:00 PM EDT [facility] Name Value Range Interpretation Code Description Data Cassi rce(s) Supporting Document(s) SARS coronavirus 2 RNA [Presence] in Res piratory specimen by AMBER with probe detection NEGATIVE [facility] This lab was ordered by [facility] a nd reported by [facility]. ID Date Data Source [id number] 12/02/2020 02:22:00 PM EDT [facility]) Name Value Range Interpretation Code Description Data Cassi rce(s) Supporting Document(s) lipase 146 U/L 73-393 Lipase [facility] ([facility]) ID Date Data Source [id number] 12/02/2020 02:22:00 PM EDT [facility]) Name Value Range Interpretation Code Description Data Cassi rce(s) Supporting Document(s) blood urea nitrogen 10 mg/dL 7-18 Blood Urea Nitro gen [facility]) creatinine for GFR 0.69 mg/dL 0.70-1.30 Below low normal Creatinine for GFR [facility]) glucose, fasting 84 mg/dL 70-100 Glucose, Fasting AT [facility]) potassium serum 3.9 mEq/L 3.5-5.1 Potassium Serum ATHE ([facility]) sodium level 141 mEq/L 136-145 Sodium Level ZACHERY ([facility]) glomerular filtration rate > 60.0 >60 Glomerula r Filtration Rate [facility]ACHERY ([facility]) anion gap 2 mEq/L 8-16 Below low normal Anion Gap ZACHERY ( [facility]) calcium level 8.6 mg/dL 8.5-10.1 Calcium Level ZACHERY ( [facility]) carbon dioxide level 32 mEq/L 21-32 Carbon Dioxide Level ZACHERY ([facility]) chloride level 107 mEq/L 98-107 Chloride Level [facility]ERY ([facility]) ID Date Data Source [id number] 12/02/2020 02:22:00 PM EDT [facility] ([facility]) Name Value Range Interpretation Code Description Data Cassi rce(s) Supporting Document(s) AST/SGOT 16 U/L 7-37 AST/SGOT [facility] ([facility]) bilirubin,total 0.4 mg/dL 0.2-1.0 Bilirubin,total ATHE ([facility]) ALT/SGPT 18 U/L 12-78 ALT/SGPT [facility]ACHERY ([facility]) alkaline phosphatase 42 U/L 45-117 Below low normal Alkaline Phosphatase [facility] ([facility]) total protein 6.8 gm/dL 6.4-8.2 Total Protein ZACHERY ( [facility]) bilirubin,direct 0.1 mg/dL 0.0-0.2 Bilirubin,direct AT [facility] ([facility]) albumin 3.8 gm/dL 3.2-5.2 Albumin ZACHERY ([facility]) albumin/globulin ratio Albumin/globu roderick Ratio [facility] ([facility]) ID Date Data Source [id number] 12/02/2020 02:22:00 PM EDT [facility] ([facility]) Name Value Range Interpretation Code Description Data Cassi rce(s) Supporting Document(s) white blood count 4.7 10 4.0-10.0 White Blood Count [facility] ([facility]) hematocrit 39.5 % 42.0-52.0 Below low normal Hematocrit ZACHERY ( [facility]) hemoglobin 13.4 g/dL 13.5-17.5 Below low normal Hemoglobin ZACHERY ( [facility]) red blood count 4.39 10 4.30-6.10 Red Blood Count ATHE NA ([facility]) mean corpuscular volume 90.0 fL 80.0-96.0 Mean Corpusc ular Volume ZACHERY ([facility]) mean corpuscular hemoglobin 30.5 pg 27.0-33.0 Mean Cor puscular Hemoglobin ZACHERY ([facility]) mean corpuscular HGB conc 33.9 g/dL 32.0-36.5 Mean Corpu scular HGB Conc [facility] ([facility]) platelet count, automated 191 10 150-450 Platelet C ount, Automated [facility] ([facility]) red cell distribution width 12.0 % 11.5-14.5 Red Cell Distribution Width [facility] ([facility]) neutrophils % 42.4 % 36.0-66.0 Neutrophils % ZACHERY ( [facility]) mono % 16.7 % 2.0-8.0 Above high normal [place] % ZACHERY ([facility]) lymph % 34.2 % 24.0-44.0 Lymph % ZACHERY ([facility]) baso % 0.4 % 0.0-1.0 Baso % ZACHERY ([facility]) eos % 6.1 % 0.0-3.0 Above high normal Eos % [facility]ERY ([facility]) immature granulocyte % 0.2 % 0-3.0 Immature Gran ulocyte % [facility]ERY ([facility]) nucleated red blood cell % 0.0 % 0-0 Nucleated Red Blood Cell % [facility]ERY ([facility]) neutrophils # 2.0 10 1.5-8.5 Neutrophils # ZACHERY ( [facility]) lymph # 1.6 10 1.5-5.0 Lymph # ZACHERY ([facility]) mono # 0.8 10 0.0-0.8 [place] # ZACHERY ([facility]) baso # 0.0 10 0.0-0.2 Baso # ZACHERY ([facility]) eos # 0.3 10 0.0-0.5 Eos # [facility]ACHERY ([facility]) ID Date Data Source [id number] 12/02/2020 02:22:00 PM EDT [facility] ([facility]) Name Value Range Interpretation Code Description Data Cassi rce(s) Supporting Document(s) lipase 146 U/L 73-393 Lipase [facility] ([facility]) ID Date Data Source [id number] 12/02/2020 02:22:00 PM EDT [facility] ([facility]) Name Value Range Interpretation Code Description Data Cassi rce(s) Supporting Document(s) blood urea nitrogen 10 mg/dL 7-18 Blood Urea Nitro gen [facility] ([facility]) glucose, fasting 84 mg/dL 70-100 Glucose, Fasting AT [facility] ([facility]) creatinine for GFR 0.69 mg/dL 0.70-1.30 Below low normal Creatinine for GFR [facility] ([facility]) glomerular filtration rate > 60.0 >60 Glomerula r Filtration Rate ZACHERY ([facility]) sodium level 141 mEq/L 136-145 Sodium Level ZACHERY ([facility]) potassium serum 3.9 mEq/L 3.5-5.1 Potassium Serum ATHE NA ([facility]) carbon dioxide level 32 mEq/L 21-32 Carbon Dioxide Level ZACHERY ([facility]) chloride level 107 mEq/L 98-107 Chloride Level [facility]ACHERY ([facility]) calcium level 8.6 mg/dL 8.5-10.1 Calcium Level [facility] ( [facility]) anion gap 2 mEq/L 8-16 Below low normal Anion Gap [facility] ( [facility]) ID Date Data Source [id number] 12/02/2020 02:22:00 PM EDT [facility] ([facility]) Name Value Range Interpretation Code Description Data Cassi rce(s) Supporting Document(s) AST/SGOT 16 U/L 7-37 AST/SGOT [facility] ([facility]) ALT/SGPT 18 U/L 12-78 ALT/SGPT [facility] ([facility]) alkaline phosphatase 42 U/L 45-117 Below low normal Alkaline Phosphatase [facility] ([facility]) bilirubin,total 0.4 mg/dL 0.2-1.0 Bilirubin,total ATHE NA ([facility]) bilirubin,direct 0.1 mg/dL 0.0-0.2 Bilirubin,direct AT [facility] ([facility]) total protein 6.8 gm/dL 6.4-8.2 Total Protein ZACHERY ( [facility]) albumin 3.8 gm/dL 3.2-5.2 Albumin ZACHERY ([facility]) albumin/globulin ratio Albumin/globu roderick Ratio [facility] ([facility]) ID Date Data Source [id number] 12/02/2020 02:22:00 PM EDT [facility] ([facility]) Name Value Range Interpretation Code Description Data Cassi rce(s) Supporting Document(s) white blood count 4.7 10 4.0-10.0 White Blood Count [facility]ERY ([facility]) red blood count 4.39 10 4.30-6.10 Red Blood Count ATHE NA ([facility]) hemoglobin 13.4 g/dL 13.5-17.5 Below low normal Hemoglobin ZACHERY ( [facility]) hematocrit 39.5 % 42.0-52.0 Below low normal Hematocrit ZACHERY ( [facility]) mean corpuscular volume 90.0 fL 80.0-96.0 Mean Corpusc ular Volume ZACHERY ([facility]) mean corpuscular hemoglobin 30.5 pg 27.0-33.0 Mean Cor puscular Hemoglobin [facility]ACHERY ([facility]) red cell distribution width 12.0 % 11.5-14.5 Red Cell Distribution Width [facility] ([facility]) mean corpuscular HGB conc 33.9 g/dL 32.0-36.5 Mean Corpu scular HGB Conc [facility] ([facility]) platelet count, automated 191 10 150-450 Platelet C ount, Automated [facility] ([facility]) neutrophils % 42.4 % 36.0-66.0 Neutrophils % ZACHERY ( [facility]) lymph % 34.2 % 24.0-44.0 Lymph % [facility]ERY ([facility]) mono % 16.7 % 2.0-8.0 Above high normal [place] % ZACHERY ([facility]) eos % 6.1 % 0.0-3.0 Above high normal Eos % [place] ([facility]) baso % 0.4 % 0.0-1.0 Baso % [facility] ([facility]) immature granulocyte % 0.2 % 0-3.0 Immature Gran ulocyte % [facility] ([facility]) neutrophils # 2.0 10 1.5-8.5 Neutrophils # ZACHERY ( [facility]) nucleated red blood cell % 0.0 % 0-0 Nucleated Red Blood Cell % [facility]ERY ([facility]) lymph # 1.6 10 1.5-5.0 Lymph # [place] ([facility]) mono # 0.8 10 0.0-0.8 [place] # ZACHERY ([facility]) eos # 0.3 10 0.0-0.5 Eos # ZACHERY ([facility]) baso # 0.0 10 0.0-0.2 Baso # [facility]ACHERY ([facility]) ID Date Data Source [id number] 12/02/2020 02:22:00 PM EDT [facility] ([facility]) Name Value Range Interpretation Code Description Data Cassi rce(s) Supporting Document(s) lipase 146 U/L 73-393 Lipase [facility] ([facility]) ID Date Data Source [id number] 12/02/2020 02:22:00 PM EDT [facility] ([facility]) Name Value Range Interpretation Code Description Data Cassi rce(s) Supporting Document(s) glucose, fasting 84 mg/dL 70-100 Glucose, Fasting AT [facility]) creatinine for GFR 0.69 mg/dL 0.70-1.30 Below low normal Creatinine for GFR [facility] ([facility]) blood urea nitrogen 10 mg/dL 7-18 Blood Urea Nitro gen [facility] ([facility]) glomerular filtration rate > 60.0 >60 Glomerula r Filtration Rate [facility] ([facility]) potassium serum 3.9 mEq/L 3.5-5.1 Potassium Serum ATH NA ([facility]) sodium level 141 mEq/L 136-145 Sodium Level ZACHERY ([facility]) chloride level 107 mEq/L 98-107 Chloride Level [place] ([facility]) carbon dioxide level 32 mEq/L 21-32 Carbon Dioxide Level [place] ([facility]) anion gap 2 mEq/L 8-16 Below low normal Anion Gap ZACHERY ( [facility]) calcium level 8.6 mg/dL 8.5-10.1 Calcium Level [place] ( [facility]) ID Date Data Source [id number] 12/02/2020 02:22:00 PM EDT [facility]) Name Value Range Interpretation Code Description Data Cassi rce(s) Supporting Document(s) ALT/SGPT 18 U/L 12-78 ALT/SGPT [place] ([facility]) AST/SGOT 16 U/L 7-37 AST/SGOT [facility] ([facility]) alkaline phosphatase 42 U/L 45-117 Below low normal Alkaline Phosphatase [facility] ([facility]) total protein 6.8 gm/dL 6.4-8.2 Total Protein [facility] ( [facility]) bilirubin,direct 0.1 mg/dL 0.0-0.2 Bilirubin,direct AT [facility]) bilirubin,total 0.4 mg/dL 0.2-1.0 [facility] albumin 3.8 gm/dL 3.2-5.2 Albumin ZACHERY ([facility]) albumin/globulin ratio Albumin/globu roderick Ratio [facility] ([facility]) ID Date Data Source [id number] 12/02/2020 02:22:00 PM EDT [facility] ([facility]) Name Value Range Interpretation Code Description Data Cassi rce(s) Supporting Document(s) white blood count 4.7 10 4.0-10.0 White Blood Count [facility] ([facility]) red blood count 4.39 10 4.30-6.10 Red Blood Count ATHE ([facility]) hemoglobin 13.4 g/dL 13.5-17.5 Below low normal Hemoglobin ZACHERY ( [facility]) mean corpuscular hemoglobin 30.5 pg 27.0-33.0 Mean Cor puscular Hemoglobin [facility] ([facility]) mean corpuscular volume 90.0 fL 80.0-96.0 Mean Corpusc ular Volume [facility]ERY ([facility]) hematocrit 39.5 % 42.0-52.0 Below low normal Hematocrit ZACHERY ( [facility]) red cell distribution width 12.0 % 11.5-14.5 Red Cell Distribution Width [facility] ([facility]) mean corpuscular HGB conc 33.9 g/dL 32.0-36.5 Mean Corpu scular HGB Conc [facility] ([facility]) platelet count, automated 191 10 150-450 Platelet C ount, Automated [facility] ([facility]) lymph % 34.2 % 24.0-44.0 Lymph % Z[facility]ERY ([facility]) neutrophils % 42.4 % 36.0-66.0 Neutrophils % Z[facility]ERY ( [facility]) baso % 0.4 % 0.0-1.0 Baso % Z[facility] ([facility]) eos % 6.1 % 0.0-3.0 Above high normal Eos % [facility] ([facility]) mono % 16.7 % 2.0-8.0 Above high normal [place] % ZACHERY ([facility]) nucleated red blood cell % 0.0 % 0-0 Nucleated Red Blood Cell % [place] ([facility]) immature granulocyte % 0.2 % 0-3.0 Immature Gran ulocyte % [facility] ([facility]) neutrophils # 2.0 10 1.5-8.5 Neutrophils # ZACHERY ( [facility]) mono # 0.8 10 0.0-0.8 [place] # ZACHERY ([facility]) lymph # 1.6 10 1.5-5.0 Lymph # ZACHERY ([facility]) eos # 0.3 10 0.0-0.5 Eos # [facility]ERY ([facility]) baso # 0.0 10 0.0-0.2 Baso # [facility] ([facility]) ID Date Data Source [id number] 11/14/2020 08:37:00 AM EDT [facility]) Name Value Range Interpretation Code Description Data Cassi rce(s) Supporting Document(s) Hemoglobin A1c/Hemoglobin.total in Blood 5.1 %_of_total_HGB <5.7 Hemoglobin a1C [facility]) ID Date Data Source [id number] 11/14/2020 08:37:00 AM EDT [facility]) Name Value Range Interpretation Code Description Data Cassi rce(s) Supporting Document(s) Calcidiol [Mass/volume] in Serum or Plasma 23 NG/mL 30-100 Below low normal Vitamin D,25-Oh,total,ia [facility]) ID Date Data Source [id number] 11/14/2020 08:37:00 AM EDT [facility]) Name Value Range Interpretation Code Description Data Cassi rce(s) Supporting Document(s) Varicella zoster virus IgG Ab [Units/volume] in Serum by Immunoassay 1027.00 index Varicella Zoster Virus Antibody (IgG) [facility]) ID Date Data Source [id number] 11/14/2020 08:37:00 AM EDT [place] ([facility]) Name Value Range Interpretation Code Description Data Cassi rce(s) Supporting Document(s) Hepatitis B virus surface Ab [Presence] in Serum by Immunoas say reactive non-reactive Abnormal (applies to non-numeric results) Hepatitis B Surface Antibody Ql [facility] ([facility]) ID Date Data Source [id number] 11/14/2020 08:37:00 AM EDT [facility] ([facility]) Name Value Range Interpretation Code Description Data Cassi rce(s) Supporting Document(s) Hemoglobin [Mass/volume] in Blood 13.7 g/dL 13.2-17.1 He moglobin [facility] ([facility]) Leukocytes [#/volume] in Blood by Automated count 5.8 thousand/uL 3 .8-10.8 White Blood Cell Count [facility] ([facility]) Erythrocytes [#/volume] in Blood by Automated count 4.52 million/uL 4.20-5.80 Red Blood Cell Count [facility] ([facility] [facility]) Erythrocyte mean corpuscular hemoglobin [Entitic mass] by Automated count 30.3 pg 27.0-33.0 Mch ZACHERY ([facility]) Erythrocyte mean corpuscular volume [Entitic volume] by Auto mated count 88.3 fL 80.0-100.0 Mcv ZACHERY ([facility]) Hematocrit [Volume Fraction] of Blood by Automated count 39.9 % 38.5-50.0 Hematocrit ZACHERY ([facility]) Erythrocyte distribution width [Ratio] by Automated count 11.8 % 11.0-15.0 Rdw ZACHERY ([facility]) Erythrocyte mean corpuscular hemoglobin concentration [Mass/volume] by Automated count 34.3 g/dL 32.0-36.0 Mchc ZACHERY ([facility]) Lymphocytes [#/volume] in Blood by Automated count 2250 cells/uL 85 0-3900 Absolute Lymphocytes ZACHERY ([facility]) Platelet mean volume [Entitic volume] in Blood by Meg 12.2 f L 7.5-12.5 Mpv ZACHERY ([facility]) Platelets [#/volume] in Blood by Automated count 244 thousand/uL 14 0-400 Platelet Count ZACHERY ([facility]) Neutrophils [#/volume] in Blood by Automated count 2424 cells/uL 15 00-7800 Absolute Neutrophils ZACHERY ([facility]) Monocytes [#/volume] in Blood by Automated count 713 cells/uL 200-9 50 Absolute Monocytes ZACHERY ([facility]) Monocytes/100 leukocytes in Blood by Automated count 12.3 % 0-13 Monocytes ZACHERY ([facility]) Basophils [#/volume] in Blood by Automated count 41 cells/uL 0-200 Absolute Basophils ZACHERY ([facility]) Neutrophils/100 leukocytes in Blood by Automated count 41.8 % 38-80 Neutrophils LORRAINE ([facility]) Lymphocytes/100 leukocytes in Blood by Automated count 38.8 % 15-49 Lymphocytes ZACHERY ([facility]) Eosinophils [#/volume] in Blood by Automated count 371 cells/uL 15- 500 Absolute Eosinophils ZACHERY ([facility]) Basophils/100 leukocytes in Blood by Automated count 0.7 % 0-2 Basophils ZACHERY ([facility]) Eosinophils/100 leukocytes in Blood by Automated count 6.4 % 0-8 Eosinophils LORRAINE ([facility]) ID Date Data Source [id number] 11/14/2020 08:37:00 AM EDT LORRAINE ([facility]) Name Value Range Interpretation Code Description Data Cassi rce(s) Supporting Document(s) Glucose [Mass/volume] in Serum or Plasma 87 mg/dL 65-99 Glucose ZACHERY ([facility]) Creatinine [Mass/volume] in Serum or Plasma 0.84 mg/dL 0.60-1.35 Creatinine ZACHERY ([facility]) Glomerular filtration rate/1.73 sq M.pre dicted among blacks [Volume Rate/Area] in Serum, Plasma or Blood by Creatinine-based formula (CKD-EPI) 135 mL/min/1.73m2 > or = 60 eGFR ZACHERY ([facility]) Glomerular filtration rate/1.73 sq M.pre dicted among non-blacks [Volume Rate/Area] in Serum, Plasma or Blood by Creatinine-based formula (CKD-EPI) 117 mL/min/1.73m2 > or = 60 eGFR Non-afr. Cuban ZACHERY ([facility]) Urea nitrogen [Mass/volume] in Serum or Plasma 20 mg/dL 7-25 [facility] Potassium [Moles/volume] in Serum or Plasma 4.4 mmol/L 3.5-5.3 Potassium ZACHERY ([facility]) Sodium [Moles/volume] in Serum or Plasma 139 mmol/L 135-146 Sodium ZACHERY ([facility]) Urea nitrogen/Creatinine [Mass Ratio] in Serum or Plasma not applic able 6-22 BUN/creatinine [facility] Chloride [Moles/volume] in Serum or Plasma 102 mmol/L 98-110 Chloride [facility]) Carbon dioxide, total [Moles/volume] in Serum or Plasma 33 mmol/ L 20-32 Above high normal [facility] D[facility] Calcium [Mass/volume] in Serum or Plasma 10.1 mg/dL 8.6-10.3 Calcium LORRAINE ([facility]) Protein [Mass/volume] in Serum or Plasma 7.4 g/dL 6.1-8.1 Protein, Total [facility]) Albumin [Mass/volume] in Serum or Plasma 4.6 g/dL 3.6-5.1 Albumin [facility]) Globulin [Mass/volume] in Serum by calculation 2.8 g/dL_(calc) 1.9- 3.7 Globulin [facility]) Albumin/Globulin [Mass Ratio] in Serum or Plasma 1.6 (calc) 1.0-2 .5 Albumin/globulin Ratio [facility]) Bilirubin.total [Mass/volume] in Serum or Plasma 0.6 mg/dL 0.2-1 .2 Bilirubin, [facility] Alkaline phosphatase [Enzymatic activity/volume] in Serum or Plasma 40 U/L 36-130 Alkaline Phosphatase LORRAINE ([facility]) Aspartate aminotransferase [Enzymatic activity/volume] in Serum or Plasma 12 U/L 10-40 Ast ZACHERY ([facility]) Alanine aminotransferase [Enzymatic activity/volume] in Seru m or Plasma 8 U/L 9-46 Below low normal Alt ZACHERY ([facility]) ID Date Data Source [id number] 11/14/2020 08:37:00 [facility] Name Value Range Interpretation Code Description Data Cassi rce(s) Supporting Document(s) Thyrotropin [Units/volume] in Serum or Plasma 3.37 mIU/L 0.40-4.50 Tsh LORRAINE ([facility]) Thyroxine (T4) free [Mass/volume] in Serum or Plasma 1.4 NG/dL 0 .8-1.8 T4, Free LORRAINE ([facility]) ID Date Data Source [id number] 11/14/2020 08:37:00 AM EDT LORRAINE ([facility]) Name Value Range Interpretation Code Description Data Cassi rce(s) Supporting Document(s) Measles virus IgG Ab [Units/volume] in Serum by Immunoassay 26.30 A U/mL Measles Ab (IgG), Immune Status LORRAINE ([facility]) Mumps virus IgG Ab [Units/volume] in Serum by Immunoassay 87.60 AU/ mL Mumps Virus Ab (IgG), Immune Status LORRAINE ([facility]) Rubella virus IgG Ab [Units/volume] in Serum or Plasma by Immunoassay 8.53 index Rubella Ab (IgG), Immune Status LORRAINE ([facility]) ID Date Data Source [id number] 11/14/2020 08:37:00 AM EDT [facility]) Name Value Range Interpretation Code Description Data Cassi rce(s) Supporting Document(s) Cholesterol in HDL [Mass/volume] in Serum or Plasma 64 mg/dL > or = 40 HDL Cholesterol ZACHERY ([facility]) Cholesterol [Mass/volume] in Serum or Plasma 147 mg/dL <200 Cholesterol, Total ZACHERY ([facility]) Triglyceride [Mass/volume] in Serum or Plasma 50 mg/dL <150 Triglycerides ZACHERY ([facility]) Cholesterol in LDL [Mass/volume] in Serum or Plasma by calculation 71 mg/dL_(calc) LDL-cholesterol ZACHERY ([facility]) Cholesterol non HDL [Mass/volume] in Serum or Plasma 83 mg/dL_(calc ) <130 Non HDL Cholesterol ZACHERY ([facility]) Cholesterol.total/Cholesterol in HDL [Mass Ratio] in Serum o r Plasma 2.3 (calc) <5.0 Chol/hdlc Ratio ZACHERY ([facility]) ID Date Data Source [id number] 11/14/2020 08:37:00 AM EDT [facility]) Name Value Range Interpretation Code Description Data Cassi rce(s) Supporting Document(s) Hemoglobin A1c/Hemoglobin.total in Blood 5.1 %_of_total_HGB <5.7 Hemoglobin a1C [facility]) ID Date Data Source [id number] 11/14/2020 08:37:00 AM EDT [facility]) Name Value Range Interpretation Code Description Data Cassi rce(s) Supporting Document(s) Calcidiol [Mass/volume] in Serum or Plasma 23 NG/mL 30-100 Below low normal Vitamin D,25-Oh,total,ia [facility]) ID Date Data Source [id number] 11/14/2020 08:37:00 AM EDT LORRAINE ([facility]) Name Value Range Interpretation Code Description Data Cassi rce(s) Supporting Document(s) Varicella zoster virus IgG Ab [Units/volume] in Serum by Immunoassay 1027.00 index Varicella Zoster Virus Antibody (IgG) [facility]) ID Date Data Source [id number] 11/14/2020 08:37:00 AM EDT [facility]) Name Value Range Interpretation Code Description Data Cassi rce(s) Supporting Document(s) Hepatitis B virus surface Ab [Presence] in Serum by Immunoas say reactive non-reactive Abnormal (applies to non-numeric results) Hepatitis B Surface Antibody Ql LORRAINE ([facility]) ID Date Data Source [id number] 11/14/2020 08:37:00 AM EDT LORRAINE ([facility]) Name Value Range Interpretation Code Description Data Cassi rce(s) Supporting Document(s) Erythrocytes [#/volume] in Blood by Automated count 4.52 million/uL 4.20-5.80 Red Blood Cell Count ZACHERY ([facility]) Leukocytes [#/volume] in Blood by Automated count 5.8 thousand/uL 3 .8-10.8 White Blood Cell Count LORRAINE ([facility]) Erythrocyte mean corpuscular volume [Entitic volume] by Auto mated count 88.3 fL 80.0-100.0 Mcv ZACHERY ([facility]) Hemoglobin [Mass/volume] in Blood 13.7 g/dL 13.2-17.1 He moglobin ZACHERY ([facility]) Erythrocyte mean corpuscular hemoglobin [Entitic mass] by Automated count 30.3 pg 27.0-33.0 Mch ZACHERY ([facility]) Hematocrit [Volume Fraction] of Blood by Automated count 39.9 % 38.5-50.0 Hematocrit LORRAINE ([facility]) Platelets [#/volume] in Blood by Automated count 244 thousand/uL 14 0-400 Platelet Count LORRAINE ([facility]) Erythrocyte distribution width [Ratio] by Automated count 11.8 % 11.0-15.0 Rdw ZACHERY ([facility]) Erythrocyte mean corpuscular hemoglobin concentration [Mass/volume] by Automated count 34.3 g/dL 32.0-36.0 Mchc ZACHERY ([facility]) Platelet mean volume [Entitic volume] in Blood by Meg 12.2 f L 7.5-12.5 Mpv ZACHERY ([facility]) Neutrophils [#/volume] in Blood by Automated count 2424 cells/uL 15 00-7800 Absolute [facility]ils [facility] Monocytes [#/volume] in Blood by Automated count 713 cells/uL 200-9 50 Absolute Monocytes ZACHERY ([facility]) Lymphocytes [#/volume] in Blood by Automated count 2250 cells/uL 85 0-3900 Absolute Lymphocytes ZACHERY ([facility]) Neutrophils/100 leukocytes in Blood by Automated count 41.8 % 38-80 Neutrophils ZACHERY ([facility]) Basophils [#/volume] in Blood by Automated count 41 cells/uL 0-200 Absolute Basophils ZACHERY ([facility]) Eosinophils [#/volume] in Blood by Automated count 371 cells/uL 15- 500 Absolute Eosinophils ZACHERY ([facility]) Monocytes/100 leukocytes in Blood by Automated count 12.3 % 0-13 Monocytes ZACHERY ([facility]) Lymphocytes/100 leukocytes in Blood by Automated count 38.8 % 15-49 Lymphocytes ZACHERY ([facility]) Eosinophils/100 leukocytes in Blood by Automated count 6.4 % 0-8 Eosinophils ZACHERY ([facility]) Basophils/100 leukocytes in Blood by Automated count 0.7 % 0-2 Basophils ZACHERY ([facility]) ID Date Data Source [id number] 11/14/2020 08:37:00 AM EDT LORRAINE ([facility]) Name Value Range Interpretation Code Description Data Cassi rce(s) Supporting Document(s) Glucose [Mass/volume] in Serum or Plasma 87 mg/dL 65-99 Glucose ZACHERY ([facility]) Urea nitrogen [Mass/volume] in Serum or Plasma 20 mg/dL 7-25 Urea Nitrogen (BUN) ZACHERY ([facility]) Creatinine [Mass/volume] in Serum or Plasma 0.84 mg/dL 0.60-1.35 Creatinine ZACHERY ([facility]) Glomerular filtration rate/1.73 sq M.pre dicted among blacks [Volume Rate/Area] in Serum, Plasma or Blood by Creatinine-based formula (CKD-EPI) 135 mL/min/1.73m2 > or = 60 eGFR ZACHERY ([facility]) Glomerular filtration rate/1.73 sq M.pre dicted among non-blacks [Volume Rate/Area] in Serum, Plasma or Blood by Creatinine-based formula (CKD-EPI) 117 mL/min/1.73m2 > or = 60 eGFR Non-afr. Cuban ZACHERY ([facility]) Urea nitrogen/Creatinine [Mass Ratio] in Serum or Plasma not applic able 6-22 BUN/creatinine Ratio ZACHERY ([facility]) Sodium [Moles/volume] in Serum or Plasma 139 mmol/L 135-146 Sodium LORRAINE ([facility]) Potassium [Moles/volume] in Serum or Plasma 4.4 mmol/L 3.5-5.3 Potassium ZACHERY ([facility]) Carbon dioxide, total [Moles/volume] in Serum or Plasma 33 mmol/ L 20-32 Above high normal Carbon Dioxide [facility]) Chloride [Moles/volume] in Serum or Plasma 102 mmol/L 98-110 Chloride [facility]) Calcium [Mass/volume] in Serum or Plasma 10.1 mg/dL 8.6-10.3 Calcium [facility]) Albumin [Mass/volume] in Serum or Plasma 4.6 g/dL 3.6-5.1 Albumin [facility]) Protein [Mass/volume] in Serum or Plasma 7.4 g/dL 6.1-8.1 Protein, Total [facility]) Bilirubin.total [Mass/volume] in Serum or Plasma 0.6 mg/dL 0.2-1 .2 Bilirubin, Total [facility]) Albumin/Globulin [Mass Ratio] in Serum or Plasma 1.6 (calc) 1.0-2 .5 Albumin/globulin Ratio [facility]) Globulin [Mass/volume] in Serum by calculation 2.8 g/dL_(calc) 1.9- 3.7 Globulin [facility] Alkaline phosphatase [Enzymatic activity/volume] in Serum or Plasma 40 U/L 36-130 Alkaline Phosphatase [facility]) Alanine aminotransferase [Enzymatic activity/volume] in Seru m or Plasma 8 U/L 9-46 Below low normal Alt ZACHERY ([facility]) Aspartate aminotransferase [Enzymatic activity/volume] in Serum or Plasma 12 U/L 10-40 Ast ZACHERY ([facility]) ID Date Data Source [id number] 11/14/2020 08:37:00 AM EDT [facility]) Name Value Range Interpretation Code Description Data Cassi rce(s) Supporting Document(s) Thyrotropin [Units/volume] in Serum or Plasma 3.37 mIU/L 0.40-4.50 Tsh [facility]) Thyroxine (T4) free [Mass/volume] in Serum or Plasma 1.4 NG/dL 0 .8-1.8 T4, Free [facility]) ID Date Data Source [id number] 11/14/2020 08:37:00 AM EDT [facility]) Name Value Range Interpretation Code Description Data Cassi rce(s) Supporting Document(s) Measles virus IgG Ab [Units/volume] in Serum by Immunoassay 26.30 A U/mL Measles Ab (IgG), Immune Status [facility]) Mumps virus IgG Ab [Units/volume] in Serum by Immunoassay 87.60 AU/ mL Mumps Virus Ab (IgG), Immune Status LORRAINE ([facility]) Rubella virus IgG Ab [Units/volume] in Serum or Plasma by Immunoassay 8.53 index Rubella Ab (IgG), Immune Status LORRAINE ([facility]) ID Date Data Source [id number] 11/14/2020 08:37:00 AM EDT [facility]) Name Value Range Interpretation Code Description Data Cassi rce(s) Supporting Document(s) Cholesterol [Mass/volume] in Serum or Plasma 147 mg/dL <200 Cholesterol, Total ZACHERY ([facility]) Cholesterol in HDL [Mass/volume] in Serum or Plasma 64 mg/dL > or = 40 HDL Cholesterol ZACHERY ([facility]) Triglyceride [Mass/volume] in Serum or Plasma 50 mg/dL <150 Triglycerides LORRAINE ([facility]) Cholesterol in LDL [Mass/volume] in Serum or Plasma by calculation 71 mg/dL_(calc) LDL-cholesterol ZACHERY ([facility]) Cholesterol.total/Cholesterol in HDL [Mass Ratio] in Serum o r Plasma 2.3 (calc) <5.0 Chol/hdlc Ratio ZACHERY ([facility]) Cholesterol non HDL [Mass/volume] in Serum or Plasma 83 mg/dL_(calc ) <130 Non HDL Cholesterol ZACHERY ([facility]) ID Date Data Source [id number] 11/14/2020 08:37:00 AM EDT [facility]) Name Value Range Interpretation Code Description Data Cassi rce(s) Supporting Document(s) Hemoglobin A1c/Hemoglobin.total in Blood 5.1 %_of_total_HGB <5.7 Hemoglobin a1C [facility]) ID Date Data Source [id number] 11/14/2020 08:37:00 AM EDT [facility]) Name Value Range Interpretation Code Description Data Cassi rce(s) Supporting Document(s) Calcidiol [Mass/volume] in Serum or Plasma 23 NG/mL 30-100 Below low normal Vitamin D,25-Oh,total,ia [facility]) ID Date Data Source [id number] 11/14/2020 08:37:00 AM EDT [facility]) Name Value Range Interpretation Code Description Data Cassi rce(s) Supporting Document(s) Varicella zoster virus IgG Ab [Units/volume] in Serum by Immunoassay 1027.00 index Varicella Zoster Virus Antibody (IgG) [facility] ID Date Data Source [id number] 11/14/2020 08:37:00 AM EDT [facility]) Name Value Range Interpretation Code Description Data Cassi rce(s) Supporting Document(s) Hepatitis B virus surface Ab [Presence] in Serum by Immunoas say reactive non-reactive Abnormal (applies to non-numeric results) Hepatitis B Surface Antibody Ql ZACHERY ([facility]) ID Date Data Source [id number] 11/14/2020 08:37:00 AM EDT ZACHERY ([facility]) Name Value Range Interpretation Code Description Data Cassi rce(s) Supporting Document(s) Erythrocytes [#/volume] in Blood by Automated count 4.52 million/uL 4.20-5.80 Red Blood Cell Count ZACHERY ([facility]) Hemoglobin [Mass/volume] in Blood 13.7 g/dL 13.2-17.1 He moglobin ZACHERY ([facility]) Leukocytes [#/volume] in Blood by Automated count 5.8 thousand/uL 3 .8-10.8 White Blood Cell Count LORRAINE ([facility]) Hematocrit [Volume Fraction] of Blood by Automated count 39.9 % 38.5-50.0 Hematocrit LORRAINE ([facility]) Erythrocyte distribution width [Ratio] by Automated count 11.8 % 11.0-15.0 Rdw ZACHERY ([facility]) Erythrocyte mean corpuscular volume [Entitic volume] by Auto mated count 88.3 fL 80.0-100.0 Mcv ZACHERY ([facility]) Erythrocyte mean corpuscular hemoglobin concentration [Mass/volume] by Automated count 34.3 g/dL 32.0-36.0 Mchc ZACHERY ([facility]) Erythrocyte mean corpuscular hemoglobin [Entitic mass] by Automated count 30.3 pg 27.0-33.0 Mch LORRAINE ([facility]) Platelets [#/volume] in Blood by Automated count 244 thousand/uL 14 0-400 Platelet Count ZACHERY ([facility]) Neutrophils [#/volume] in Blood by Automated count 2424 cells/uL 15 00-7800 Absolute Neutrophils ZACHEYR ([facility]) Lymphocytes [#/volume] in Blood by Automated count 2250 cells/uL 85 0-3900 Absolute Lymphocytes ZACHERY ([facility]) Platelet mean volume [Entitic volume] in Blood by Meg 12.2 f L 7.5-12.5 Mpv ZACHERY ([facility]) Eosinophils [#/volume] in Blood by Automated count 371 cells/uL 15- 500 Absolute Eosinophils ZACHERY ([facility]) Monocytes [#/volume] in Blood by Automated count 713 cells/uL 200-9 50 Absolute Monocytes ZACHERY ([facility]) Neutrophils/100 leukocytes in Blood by Automated count 41.8 % 38-80 Neutrophils LORRAINE ([facility]) Basophils [#/volume] in Blood by Automated count 41 cells/uL 0-200 Absolute Basophils ZACHERY ([facility]) Lymphocytes/100 leukocytes in Blood by Automated count 38.8 % 15-49 Lymphocytes ZACHERY ([facility]) Eosinophils/100 leukocytes in Blood by Automated count 6.4 % 0-8 Eosinophils ZACHERY ([facility]) Basophils/100 leukocytes in Blood by Automated count 0.7 % 0-2 Basophils LORRAINE ([facility]) Monocytes/100 leukocytes in Blood by Automated count 12.3 % 0-13 Monocytes LORRAINE ([facility]) ID Date Data Source [id number] 11/14/2020 08:37:00 AM EDT [facility]) Name Value Range Interpretation Code Description Data Cassi rce(s) Supporting Document(s) Glucose [Mass/volume] in Serum or Plasma 87 mg/dL 65-99 Glucose LORRAINE ([facility]) Urea nitrogen [Mass/volume] in Serum or Plasma 20 mg/dL 7-25 Urea Nitrogen (BUN) [facility]) Glomerular filtration rate/1.73 sq M.pre dicted among non-blacks [Volume Rate/Area] in Serum, Plasma or Blood by Creatinine-based formula (CKD-EPI) 117 mL/min/1.73m2 > or = 60 eGFR Non-afr. Cuban ZACHERY ([facility]) Creatinine [Mass/volume] in Serum or Plasma 0.84 mg/dL 0.60-1.35 Creatinine [facility]) Glomerular filtration rate/1.73 sq M.pre dicted among blacks [Volume Rate/Area] in Serum, Plasma or Blood by Creatinine-based formula (CKD-EPI) 135 mL/min/1.73m2 > or = 60 eGFR ZACHERY (No [facility]) Potassium [Moles/volume] in Serum or Plasma 4.4 mmol/L 3.5-5.3 Potassium ZACHERY ([facility]) Sodium [Moles/volume] in Serum or Plasma 139 mmol/L 135-146 Sodium ZACHERY ([facility]) Urea nitrogen/Creatinine [Mass Ratio] in Serum or Plasma not applic able 6-22 BUN/creatinine Ratio ZACHERY ([facility]) Calcium [Mass/volume] in Serum or Plasma 10.1 mg/dL 8.6-10.3 Calcium ZACHERY ([facility]) Chloride [Moles/volume] in Serum or Plasma 102 mmol/L 98-110 Chloride ZACHERY ([facility]) Carbon dioxide, total [Moles/volume] in Serum or Plasma 33 mmol/ L 20-32 Above high normal Carbon Dioxide ZACHERY ([facility]) Protein [Mass/volume] in Serum or Plasma 7.4 g/dL 6.1-8.1 Protein, Total ZACHERY ([facility]) Albumin/Globulin [Mass Ratio] in Serum or Plasma 1.6 (calc) 1.0-2 .5 Albumin/globulin Ratio ZACHERY ([facility]) Globulin [Mass/volume] in Serum by calculation 2.8 g/dL_(calc) 1.9- 3.7 Globulin ZACHERY ([facility]) Albumin [Mass/volume] in Serum or Plasma 4.6 g/dL 3.6-5.1 Albumin ZACHERY ([facility]) Alanine aminotransferase [Enzymatic activity/volume] in Seru m or Plasma 8 U/L 9-46 Below low normal Alt ZACHERY ([facility]) Aspartate aminotransferase [Enzymatic activity/volume] in Serum or Plasma 12 U/L 10-40 Ast ZACHERY ([facility]) Alkaline phosphatase [Enzymatic activity/volume] in Serum or Plasma 40 U/L 36-130 Alkaline Phosphatase ZACHERY ([facility]) Bilirubin.total [Mass/volume] in Serum or Plasma 0.6 mg/dL 0.2-1 .2 Bilirubin, Total ZACHERY ([facility]) ID Date Data Source [id number] 11/14/2020 08:37:00 AM EDT [facility]) Name Value Range Interpretation Code Description Data Cassi rce(s) Supporting Document(s) Thyrotropin [Units/volume] in Serum or Plasma 3.37 mIU/L 0.40-4.50 Tsh ZACHERY ([facility]) Thyroxine (T4) free [Mass/volume] in Serum or Plasma 1.4 NG/dL 0 .8-1.8 [facility] Date Data Source [id number] 11/14/2020 08:37:00 AM EDT [facility]) Name Value Range Interpretation Code Description Data Cassi rce(s) Supporting Document(s) Measles virus IgG Ab [Units/volume] in Serum by Immunoassay 26.30 A U/mL Measles Ab (IgG), Immune Status ZACHERY ([facility]) Mumps virus IgG Ab [Units/volume] in Serum by Immunoassay 87.60 AU/ mL Mumps Virus Ab (IgG), Immune Status ZACHERY ([facility]) Rubella virus IgG Ab [Units/volume] in Serum or Plasma by Immunoassay 8.53 index Rubella Ab (IgG), Immune Status LORRAINE ([facility]) ID Date Data Source [id number] 11/14/2020 08:37:00 AM EDT [facility]) Name Value Range Interpretation Code Description Data Cassi rce(s) Supporting Document(s) Cholesterol [Mass/volume] in Serum or Plasma 147 mg/dL <200 Cholesterol, Total ZACHERY ([facility]) Cholesterol in HDL [Mass/volume] in Serum or Plasma 64 mg/dL > or = 40 HDL Cholesterol ZACHERY ([facility]) Cholesterol in LDL [Mass/volume] in Serum or Plasma by calculation 71 mg/dL_(calc) LDL-cholesterol ZACHERY ([facility]) Triglyceride [Mass/volume] in Serum or Plasma 50 mg/dL <150 Triglycerides ZACHERY ([facility]) Cholesterol non HDL [Mass/volume] in Serum or Plasma 83 mg/dL_(calc ) <130 Non HDL Cholesterol ZACHERY ([facility]) Cholesterol.total/Cholesterol in HDL [Mass Ratio] in Serum o r Plasma 2.3 (calc) <5.0 Chol/hdlc Ratio ZACHERY ([facility]) ID Date Data Source [id number] 08/23/2020 12:00:00 AM EDT [facility] Name Value Range Interpretation Code Description Data Cassi rce(s) Supporting Document(s) Carestart Rapid COVID Antigen Test Negative [facility] This lab was reported by [facility]. ID Date Data Source [id number] 08/13/2020 02:24:00 AM EDT LORRAINE ([facility]) Name Value Range Interpretation Code Description Data Cassi rce(s) Supporting Document(s) sima covid antigen positive negative Above high normal Sima Cov id Antigen [facility]) ID Date Data Source [id number] 08/13/2020 02:24:00 AM EDT LORRAINE ([facility]) Name Value Range Interpretation Code Description Data Cassi rce(s) Supporting Document(s) sima covid antigen positive negative Above high normal Sima Cov id Antigen [facility]) ID Date Data Source [id number] 08/13/2020 02:24:00 AM EDT [facility]) Name Value Range Interpretation Code Description Data Cassi rce(s) Supporting Document(s) sima covid antigen positive negative Above high normal Sima Cov id Antigen [facility]) ID Date Data Source [id number] 08/13/2020 02:24:00 AM EDT [facility]) Name Value Range Interpretation Code Description Data Cassi rce(s) Supporting Document(s) sima covid antigen positive negative Above high normal Sima Cov id Antigen [facility] ID Date Data Source [id number] 08/13/2020 02:24:00 AM EDT ZACHERY ([facility]) Name Value Range Interpretation Code Description Data Cassi rce(s) Supporting Document(s) sima covid antigen positive negative Above high normal [facility] ID Date Data Source [id number] 08/13/2020 02:24:00 AM EDT [facility] Name Value Range Interpretation Code Description Data Cassi rce(s) Supporting Document(s) SARS COVID ANTIGEN POSITIVE [facility] This lab was ordered by BRIDGET wiggins nd reported by [facility]. ID Date Data Source [id number] 05/14/2020 12:00:00 AM EST [facility] Name Value Range Interpretation Code Description Data Cassi rce(s) Supporting Document(s) SARS coronavirus 2 RNA [Presence] in Res piratory specimen by AMBER with probe detection NEGATIVE [facility] This lab was ordered by [facility] Reaves and reported by [employer]. ID Date Data Source [id number] 05/14/2020 12:00:00 AM EST [facility] Name Value Range Interpretation Code Description Data Cassi rce(s) Supporting Document(s) Carestart Rapid COVID Antigen Test Negative [facility] This lab was reported by [facility]. Procedure Social History No Information Vital Signs ID Date Data Source UNK Name Value Range Interpretation Code Description Data Source(s) Body height 73 [in_i] 73 [in_i] LORRAINE ([facility]) Body mass index (BMI) [Ratio] 21.4 kg/m2 21.4 k g/m2 ZACHERY ([facility]) Body weight 2592 [oz_av] 2592 [oz_av] [facility]ACHERY ([facility]) Diastolic blood pressure 74 mm[Hg] 74 mm[Hg] ZACHERY ([facility]) Body height 73 [in_i] 73 [in_i] ZACHERY ([facility]) Body mass index (BMI) [Ratio] 20.3 kg/m2 20.3 k g/m2 [facility]ACHERY ([facility]) Systolic blood pressure 111 mm[Hg] 111 mm[Hg] A THENA ([facility]) Body weight 2464 [oz_av] 2464 [oz_av] ZACHERY ([facility]) Diastolic blood pressure 74 mm[Hg] 74 mm[Hg] ZACHERY ([facility]) Body height 73 [in_i] 73 [in_i] ZACHERY ([facility]) Body mass index (BMI) [Ratio] 20.3 kg/m2 20.3 k g/m2 ZACHERY ([facility]) Systolic blood pressure 111 mm[Hg] 111 mm[Hg] A YANEA ([facility]) Body weight 2464 [oz_av] 2464 [oz_av] [facility]ACHERY ([facility]) Body height 73 [in_i] 73 [in_i] ZACHERY ([facility]) Body height 73 [in_i] 73 [in_i] ZACHERY ([facility]) Body height 73 [in_i] 73 [in_i] ZACHERY ([facility]) Body height 73 [in_i] 73 [in_i] ZACHERY ([facility]) Body height 73 [in_i] 73 [in_i] ZACHERY ([facility]) Patient Treatment Plan of Care Planned Activity Planned Date Details Description Data Source (s) Cholecalciferol 2000 UNT Oral Capsule ZACHERY ([facility]) Propranolol Hydrochloride 10 MG Oral Tablet ZACHERY ([facility]) Ondansetron 4 MG Disintegrating Oral Tablet ZACHERY ([facility]) Nicotine 4 MG Chewing Gum AT [facility]) Levothyroxine Sodium 0.025 MG Oral Tablet ZACHERY ([facility]) Propranolol Hydrochloride 10 MG Oral Tablet ZCAHERY ([facility]) Ondansetron 4 MG Disintegrating Oral Tablet ZACHERY ([facility]) Nicotine 4 MG Chewing Gum AT [facility]) Levothyroxine Sodium 0.025 MG Oral Tablet ZACHERY ([facility])
[2021-03-31 08:07] LABS: BASO % 0.7 % (0.0-1.0); EOS # 0.3 10^3/uL (0.0-0.5); EOS % 5.9 % (0.0-3.0); HEMATOCRIT 42.4 % (42.0-52.0); LYMPH # 2.4 10^3/uL (1.5-5.0); LYMPH % 42.1 % (24.0-44.0); MEAN CORPUSCULAR HEMOGLOBIN 29.5 pg (27.0-33.0); MEAN CORPUSCULAR VOLUME 89.5 fl (80.0-96.0); MONO # 0.7 10^3/uL (0.0-0.8); MONO % 12.9 % (2.0-8.0); NEUTROPHILS # 2.1 10^3/uL (1.5-8.5); NEUTROPHILS % 38.2 % (36.0-66.0); PLATELET COUNT, AUTOMATED 246 10^3/uL (150-450); RED BLOOD COUNT 4.74 10^6/uL (4.30-6.10); WHITE BLOOD COUNT 5.6 10^3/uL (4.0-10.0)
[2021-03-31 08:38] LABS: BLOOD UREA NITROGEN 14 MG/DL (7-18); CALCIUM LEVEL 9.3 MG/DL (8.5-10.1); CARBON DIOXIDE LEVEL 29 MEQ/L (21-32); CHLORIDE LEVEL 104 MEQ/L (98-107); CREATININE FOR GFR 0.84 MG/DL (0.70-1.30); GLOMERULAR FILTRATION RATE > 60.0 (>60); GLUCOSE, FASTING 97 MG/DL (70-100); POTASSIUM SERUM 3.7 MEQ/L (3.5-5.1); SODIUM LEVEL 139 MEQ/L (136-145)
[2021-03-31 08:46] LABS: ALBUMIN 4.1 GM/DL (3.2-5.2); BILIRUBIN,DIRECT 0.2 MG/DL (0.0-0.2); BILIRUBIN,TOTAL 0.8 MG/DL (0.2-1.0); TOTAL PROTEIN 7.3 GM/DL (6.4-8.2)
[2021-03-31] MEDS ORDERED: ONDANSETRON 4MG/2ML VIAL IV ONE (11:25)
[2021-03-31] MEDS ORDERED: KETOROLAC 30 MG/ML 1ML VIAL IV ONE (11:25)
[2021-03-31] MEDS ORDERED: NS 1,000 ML IV ONE (11:30)
[2021-03-31] MEDS ORDERED: ISOVUE-370 76% 100ML VIAL As Ordered ONE (11:32)
--- OUTSIDE RECORDS SUMMARY | 2021-03-31 11:32 | CCD ---
Author Author [facility] Organization [facility] Address Unknown Phone Unavailable Care Team Providers Care Journalism Professor Name Role Phone Joe Miller MD Unavailable [...] Maring, Jake PA Unavailable Unavailable Janes, Samantha BASIC ACOUSTIC ANALYST BASIC ACOUSTIC ANALYST Unavailable Unavailable Pricilla Frye MD Unavailable Unavailable Pricilla Frye MD Unavailable Unavailable Pricilla Frye MD Unavailable Unavailable Pricilla Frye MD Unavailable Unavailable Pricilla Frye MD Unavailable Unavailable Pricilla Frye MD Unavailable Unavailable Pricilla Frye MD Unavailable Unavailable Pricilla Frye MD Unavailable Unavailable Pricilla Frye MD Unavailable Unavailable LAROCK, Henry CHAVEZ ONLINE PRODUCER Unavailable Unavailable LAROCK, Henry CHAVEZ ONLINE PRODUCER Unavailable Unavailable LAROCK, Henry CHAVEZ ONLINE PRODUCER Unavailable Unavailable LAROCK, Henry CHAVEZ ONLINE PRODUCER Unavailable Unavailable LAROCK, Henry CHAVEZ ONLINE PRODUCER Unavailable Unavailable LAROCK, Henry CHAVEZ ONLINE PRODUCER Unavailable Unavailable LAROCK, Henry CHAVEZ ONLINE PRODUCER Unavailable Unavailable LAROCK, Henry CHAVEZ ONLINE PRODUCER Unavailable Unavailable LAROCK, Henry CHAVEZ ONLINE PRODUCER Unavailable Unavailable LAROCK, Henry CHAVEZ ONLINE PRODUCER Unavailable Unavailable LAROCK, Henry CHAVEZ ONLINE PRODUCER Unavailable Unavailable LAROCK, Henry CHAVEZ ONLINE PRODUCER Unavailable Unavailable LAROCK, Henry CHAVEZ ONLINE PRODUCER Unavailable Unavailable LAROCK, Henry CHAVEZ ONLINE PRODUCER Unavailable Unavailable LAROCK, Henry CHAVEZ ONLINE PRODUCER Unavailable Unavailable LAROCK, Henry CHAVEZ ONLINE PRODUCER Unavailable Unavailable LAROCK, Henry CHAVEZ ONLINE PRODUCER Unavailable Unavailable LAROCK, Henry CHAVEZ ONLINE PRODUCER Unavailable Unavailable LAROCK, Henry CHAVEZ ONLINE PRODUCER Unavailable Unavailable LAROCK, Henry CHAVEZ ONLINE PRODUCER Unavailable Unavailable LAROCK, Henry CHAVEZ ONLINE PRODUCER Unavailable Unavailable LAROCK, Henry CHAVEZ ONLINE PRODUCER Unavailable Unavailable Janes, A Samantha BASIC ACOUSTIC ANALYST Unavailable Unavailable Janes, A Samantha BASIC ACOUSTIC ANALYST Unavailable Unavailable Janes, A Samantha BASIC ACOUSTIC ANALYST Unavailable Unavailable Janes, A Samantha BASIC ACOUSTIC ANALYST Unavailable Unavailable Janes, A Samantha BASIC ACOUSTIC ANALYST Unavailable Unavailable Janes, A Samantha BASIC ACOUSTIC ANALYST Unavailable Unavailable Janes, A Samantha BASIC ACOUSTIC ANALYST Unavailable Unavailable Janes, A Samantha BASIC ACOUSTIC ANALYST Unavailable Unavailable Janes, A Samantha BASIC ACOUSTIC ANALYST Unavailable Unavailable Janes, A Samantha BASIC ACOUSTIC ANALYST Unavailable Unavailable Janes, A Samantha BASIC ACOUSTIC ANALYST Unavailable Unavailable Janes, A Samantha BASIC ACOUSTIC ANALYST Unavailable Unavailable Janes, A Samantha BASIC ACOUSTIC ANALYST Unavailable Unavailable Janes, A Samantha BASIC ACOUSTIC ANALYST Unavailable Unavailable Janes, A Samantha BASIC ACOUSTIC ANALYST Unavailable Unavailable Janes, A Samantha BASIC ACOUSTIC ANALYST Unavailable Unavailable Janes, A Samantha BASIC ACOUSTIC ANALYST Unavailable Unavailable Janes, A Samantha BASIC ACOUSTIC ANALYST Unavailable Unavailable Janes, A Samantha BASIC ACOUSTIC ANALYST Unavailable Unavailable Janes, A Samantha BASIC ACOUSTIC ANALYST Unavailable Unavailable Janes, A Samantha BASIC ACOUSTIC ANALYST Unavailable Unavailable Janes, A Samantha BASIC ACOUSTIC ANALYST Unavailable Unavailable Janes, A Samantha BASIC ACOUSTIC ANALYST Unavailable Unavailable Janes, A Samantha BASIC ACOUSTIC ANALYST Unavailable Unavailable Janes, A Samantha BASIC ACOUSTIC ANALYST Unavailable Unavailable Janes, A Samantha BASIC ACOUSTIC ANALYST Unavailable Unavailable Janes, A Samantha BASIC ACOUSTIC ANALYST Unavailable Unavailable Janes, A Samantha BASIC ACOUSTIC ANALYST Unavailable Unavailable Janes, A Samantha BASIC ACOUSTIC ANALYST Unavailable Unavailable Janes, A Samantha BASIC ACOUSTIC ANALYST Unavailable Unavailable Janes, A Samantha BASIC ACOUSTIC ANALYST Unavailable Unavailable TONTARSKI, G SUSANNA PA Unavailable [...] SUSANNA PA Unavailable Unavailable Janes, A Samantha BASIC ACOUSTIC ANALYST Unavailable Unavailable Janes, A Samantha BASIC ACOUSTIC ANALYST Unavailable Unavailable Janes, A Samantha BASIC ACOUSTIC ANALYST Unavailable Unavailable Janes, A Samantha BASIC ACOUSTIC ANALYST Unavailable Unavailable Janes, A Samantha BASIC ACOUSTIC ANALYST Unavailable Unavailable Janes, A Samantha BASIC ACOUSTIC ANALYST Unavailable Unavailable Janes, A Samantha BASIC ACOUSTIC ANALYST Unavailable Unavailable Janes, A Samantha BASIC ACOUSTIC ANALYST Unavailable Unavailable Janes, A Samantha BASIC ACOUSTIC ANALYST Unavailable Unavailable Janes, A Samantha BASIC ACOUSTIC ANALYST Unavailable Unavailable Janes, A Samantha BASIC ACOUSTIC ANALYST Unavailable Unavailable Janes, A Samantha BASIC ACOUSTIC ANALYST Unavailable Unavailable Janes, A Samantha BASIC ACOUSTIC ANALYST Unavailable Unavailable Janes, A Samantha BASIC ACOUSTIC ANALYST Unavailable Unavailable Janes, A Samantha BASIC ACOUSTIC ANALYST Unavailable Unavailable Janes, A Samantha BASIC ACOUSTIC ANALYST Unavailable Unavailable Janes, A Samantha BASIC ACOUSTIC ANALYST Unavailable Unavailable Janes, A Samantha BASIC ACOUSTIC ANALYST Unavailable Unavailable Janes, A Samantha BASIC ACOUSTIC ANALYST Unavailable Unavailable Janes, A Samantha BASIC ACOUSTIC ANALYST Unavailable Unavailable Janes, A Samantha BASIC ACOUSTIC ANALYST Unavailable Unavailable Janes, A Samantha BASIC ACOUSTIC ANALYST Unavailable Unavailable Janes, A Samantha BASIC ACOUSTIC ANALYST Unavailable Unavailable Janes, A Samantha BASIC ACOUSTIC ANALYST Unavailable Unavailable Janes A Samantha BASIC ACOUSTIC ANALYST Unavailable Unavailable Janes, A Samantha BASIC ACOUSTIC ANALYST Unavailable Unavailable Janes, A Samantha BASIC ACOUSTIC ANALYST Unavailable Unavailable Janes, A Samantha BASIC ACOUSTIC ANALYST Unavailable Unavailable Janes, A Samantha BASIC ACOUSTIC ANALYST Unavailable Unavailable Janes, A Samantha BASIC ACOUSTIC ANALYST Unavailable Unavailable Janes, A Samantha BASIC ACOUSTIC ANALYST Unavailable Unavailable Scordo, M Carley PA Unavailable [...] is protected by Article 27-F of the [place] Public Health law. If you continue you may have access to information: Regarding HIV / AIDS; Provided by facilities licensed or operated by the [place] [employer] Office of Mental Health; or Provided by the [facility] [employer] Office for People With Developmental Disabilities. If such information is present, then the following [employer] mandated warning applies: This information has been [...] law may result in a fine or detention sentence or both. A general authorization for the release of medical or other information is NOT sufficient authorization for further disc losure. Allergies and Adverse Reactions Type Description Substance Reaction Status Data Source(s ) Allergy to substance Allergy to substance Allergy to substance [facility] ([facility]) Allergy to substance Allergy to substance Allergy to substance [facility] ([facility]) Allergy to substance Allergy to substance Allergy to substance [facility] ([facility]) Encounters Encounter Providers Location Date Indications Data Source(s ) Outpatient Attender: SUSANNA graff 02/03/2021 11:30:00 AM EDT [facility] (Ho Medina MD) Angela Frye MD: [address], [place] [address], Ph. Attender: Angela Frye MD [facility] Medical 01/30/2021 12:00:00 AM EDT [facility]) Samantha Marrero [facility]: [address], [place] [address], Ph. Attender: Samantha Marrero [facility] Medical 12/20/2020 12:00:00 AM EDT [place] [facility]) Samantha Marrero [facility]: [address], [place] [address], Ph. Attender: Samantha Marrero [facility] Medical 12/20/2020 12:00:00 AM EDT [place] ([facility]) Carley Comer PA-C: [address], [place] [address], Ph. Attender: Carley MUNOZ [facility] Medical 12/05/2020 12:00:00 AM EDT [place] ([facility]) Carley Comer PA-C: [address], [place] [address], Ph. Attender: Carley MUNOZ [facility] Medical 12/05/2020 12:00:00 AM EDT [place] ([facility]) Carley Comer PA-C: [address], [place] [address], Ph. Attender: Carley MUNOZ [facility] Medical 12/05/2020 12:00:00 AM EDT [place] ([facility]) Geo Miller MD: [address] [place] [address], Ph. Attender: Geo Miller MD [facility] Medical 11/14/2020 12:00:00 AM EDT [facility] ([facility]) Geo Miller MD: [address] [place] [address], Ph. Attender: Geo Miller MD [facility] Medical 11/14/2020 12:00:00 AM EDT [facility] ([facility]) Geo Miller MD: [address] [place] [address], Ph. Attender: Geo Miller MD [facility] Medical 11/14/2020 12:00:00 AM EDT [facility] ([facility]) Geo Miller MD: [address] [place] [address], Ph. Attender: Geo Miller MD [facility] Medical 11/14/2020 12:00:00 AM EDT [facility] ([facility]) Geo Miller MD: [address] [place] [address], Ph. Attender: Geo Miller MD [facility] Medical 11/14/2020 12:00:00 AM EDT [place] ([facility]) Geo Miller MD: [address] [place] [address], Ph. Attender: Geo Miller MD [facility] Medical 11/14/2020 12:00:00 AM EDT [place] ([facility]) Geo Miller MD: [address] [place] [address], Ph. Attender: Geo Miller MD [facility] Medical 11/14/2020 12:00:00 AM EDT [place] ([facility]) Geo Miller MD: [address] [place] [address], Ph. Attender: Geo Miller MD [facility] Medical 11/14/2020 12:00:00 AM EDT [place] ([facility]) Geo Miller MD: [address] [place] [address], Ph. Attender: Geo Miller MD [facility] Medical 11/14/2020 12:00:00 AM EDT [place] ([facility]) Geo Miller MD: [address] [place] [address], Ph. Attender: Geo Miller MD [facility] Medical 11/14/2020 12:00:00 AM EDT [place] ([facility]) Outpatient Attender: KATHY PORTILLO NP 07/27 04:34:46 PM EDT - 08/23/2020 05:16:32 PM EDT [facility] ([facility] ) Outpatient Attender: Jake MUNOZ 05/14/19 12:21:47 PM EST - 05/14/2020 12:51:09 PM EST [facility] ([facility] ) Outpatient Attender: Samantha CARL FP 02/10/2020 03:1 1:02 PM EDT [facility] Outpatient Attender: SIDDHARTHA CARL 02/10/2020 03:11:00 P M EDT [facility] Immunizations Vaccine Date Status Description Data Source(s) COVID-19, mRNA, LNP-S, PF, 30 mcg/0.3 mL dose 12/05/2020 11: 10:06 AM EDT completed .3 mL [facility] ([facility]) COVID-19, mRNA, LNP-S, PF, 30 mcg/0.3 mL dose 12/05/2020 11: 10:06 AM EDT completed .3 mL [facility] ([facility]) COVID-19, mRNA, LNP-S, PF, 30 mcg/0.3 mL dose 12/05/2020 11: 10:06 AM EDT completed .3 mL [facility] ([facility]) COVID-19 VACCINE Pfizer 12/05/2020 12:00:00 AM EDT completed [facility] Vaccine Series Complete: YESThis Data wa s Submitted to [facility] Via [employer]. COVID-19, mRNA, LNP-S, PF, 30 mcg/0.3 mL dose 11/14/2020 09: 56:03 AM EDT completed .3 mL [facility] ([facility]) COVID-19, mRNA, LNP-S, PF, 30 mcg/0.3 mL dose 11/14/2020 09: 56:03 AM EDT completed .3 mL [facility] ([facility]) COVID-19, mRNA, LNP-S, PF, 30 mcg/0.3 mL dose 11/14/2020 09: 56:03 AM EDT completed .3 mL [facility] ([facility]) COVID-19, mRNA, LNP-S, PF, 30 mcg/0.3 mL dose 11/14/2020 09: 56:03 AM EDT completed .3 mL [facility] ([facility]) COVID-19, mRNA, LNP-S, PF, 30 mcg/0.3 mL dose 11/14/2020 09: 56:03 AM EDT completed .3 mL [facility] ([facility]) COVID-19 VACCINE Pfizer 11/14/2020 12:00:00 AM EDT completed [facility] Vaccine Series Complete: NOThis Data was Submitted to [facility] Via [employer]. Medications Medication Brand Name Start Date Product [...] ropranolol hydrochloride 10 MG Oral Tablet [facility] ([facility]) Propranolol Hydrochloride 10 MG Oral Tablet propranolo l 10 mg tablet propranolol 10 mg tablet completed p ropranolol hydrochloride 10 MG Oral Tablet [facility] ([facility]) Ondansetron 4 MG Disintegrating Oral Tab let ondansetron [address] 1 TABLET ON THE TONGUE EVERY 6 HOURS NEEDED FOR NAUSEA / VOMITING ondansetron 4 mg disintegrating tablet P LACE 1 TABLET ON THE TONGUE EVERY 6 HOURS NEEDED FOR NAUSEA / VOMITING completed ondansetron 4 MG Disintegrating Oral Tablet [facility] ([facility]) Ondansetron 4 MG Disintegrating Oral Tab let ondansetron [address] 1 TABLET ON THE TONGUE EVERY 6 HOURS NEEDED FOR NAUSEA / VOMITING ondansetron 4 mg disintegrating tablet P LACE 1 TABLET ON THE TONGUE EVERY 6 HOURS NEEDED FOR NAUSEA / VOMITING completed ondansetron 4 MG Disintegrating Oral Tablet [facility] ([facility]) Cholecalciferol 2000 UNT Oral Capsule Vi tamin D3 50 mcg (2,000 unit) capsule Take 1 capsule every day by oral route. Vitamin D3 50 mcg (2,000 unit) capsule Take 1 capsule every day by oral route. 1 capsule(s) completed cholecalciferol 0.05 MG Oral Capsule [facility] ([facility]) Nicotine 4 MG Chewing Gum nicotine (polacrilex) 4 mg g um nicotine (polacrilex) 4 mg gum completed nicotine 4 MG C hewing Gum [facility] ([facility]) Levothyroxine Sodium 0.025 MG Oral Tablet levothyroxin e 25 mcg tablet levothyroxine 25 mcg tablet completed levothyroxine sodium 0.025 MG Oral Tablet [facility] ([facility]) Levothyroxine Sodium 0.025 MG Oral Tablet levothyroxin e 25 mcg tablet levothyroxine 25 mcg tablet completed levothyroxine sodium 0.025 MG Oral Tablet [facility] ([facility]) Nicotine 4 MG Chewing Gum nicotine (polacrilex) 4 mg g um nicotine (polacrilex) 4 mg gum completed nicotine 4 MG C hewing Gum [facility] ([facility]) Insurance Providers Payer name Policy type / Coverage type Policy ID Covered green party ID Covered green party's relationship to saenz Policy Saenz Plan Information Medicaid S [id number] S [id number] [facility] P [id number] S [id number] SELF PAY [facility] [id number] SP [id number] SELF PAY SELF PAY SELF PAY SELF PAY [facility] P [id number] S [id number] [facility] Care Formerly [facility] P [id number] S [id number] Medicaid S [id number] S [id number] [facility] Commercial Insurance Co. [id number] Self [id number] RPR- Needs Payer Match [id number] Self [id number] [facility] Commercial Insurance Co. [id number] Self [id number] [facility] ACTIVE DUT[facility] [id number] SP [id number] [facility] MED[facility] [id number] SP [id number] [facility] [id number] SP [id number] [place] [id number] SP [id number] MEDICAID [id number] SP [id number] [facility] [id number] SP [id number] Medicaid S [id number] S [id number] MEDICAID [id number] SP [id number] Managed Care [facility] P [id number] S [id number] Medicaid S UNAVAILABLE S UNAVAILA BLE [facility] COMMUNITY PLAN [facility] [id number] SP [id number] SELF PAY ONLY NONE SP NONE [facility] COMMUNITY PLAN [facility] [id number] SP [id number] Problems, Conditions, and Diagnoses No Information Surgeries/Procedures Procedure Description Date Indications Data Source(s) OFFICE OUTPATIENT NEW 30 MINUTES 02/03/2021 12:00:00 A M EDT [facility] (Ho Medina MD) Results ID Date Data Source [id number] 02/10/2021 08:08:00 PM EDT [facility] Name Value Range Interpretation Code Description Data Cass[facility](s) Supporting Document(s) SARS coronavirus 2 RdRp gene Covid_negative [facility] This lab was ordered by [facility] and reported by [facility]. ID Date Data Source [id number] 02/02/2021 12:36:00 AM EDT [facility] Name Value Range Interpretation Code Description Data Cassi rce(s) Supporting Document(s) SARS-CoV-2 (COVID 19) NEGATIVE - SARS-CoV-2 (COVID19) [facility] This lab was ordered by [facility] a nd reported by [facility]. ID Date Data Source [id number] 12/18/2020 05:17:00 PM EDT [facility] Name Value Range Interpretation Code Description Data Cassi rce(s) Supporting Document(s) SARS coronavirus 2 Ag Covid_negative [place] [facility] This lab was ordered by [facility] and reported by [facility]. ID Date Data Source [id number] 12/02/2020 02:28:00 PM EDT [facility]) Name Value Range Interpretation Code Description Data Cassi rce(s) Supporting Document(s) influenza B amplification negative negative Influenza B Amplification [facility]) influenza A amplification negative negative Influenza a Amplification [facility]) sars covid-19 amplification negative negative Sars Cov id-19 Amplification [facility]) RSV amplification negative negative RSV Amplification [facility]) ID Date Data Source [id number] 12/02/2020 02:28:00 PM EDT [facility]) Name Value Range Interpretation Code Description Data Cassi rce(s) Supporting Document(s) influenza A amplification negative negative Influenza a Amplification [facility]) influenza B amplification negative negative Influenza B Amplification [place] ([facility]) RSV amplification negative negative RSV Amplification [place] ([facility]) sars covid-19 amplification negative negative Sars Cov id-19 Amplification [facility]) ID Date Data Source [id number] 12/02/2020 02:28:00 PM EDT [facility]) Name Value Range Interpretation Code Description Data Cassi rce(s) Supporting Document(s) influenza A amplification negative negative Influenza a Amplification [place] ([facility]) RSV amplification negative negative RSV Amplification [place] ([facility]) influenza B amplification negative negative Influenza B Amplification [place] ([facility]) sars covid-19 amplification negative negative Sars Cov id-19 Amplification [facility]) ID Date Data Source [id number] 12/02/2020 02:28:00 PM EDT [facility] Name Value Range Interpretation Code Description Data Cassi rce(s) Supporting Document(s) SARS coronavirus 2 RNA [Presence] in Res piratory specimen by AMBER with probe detection NEGATIVE [facility] This lab was ordered by [facility] a nd reported by [facility]. ID Date Data Source [id number] 12/02/2020 02:22:00 PM EDT [facility]) Name Value Range Interpretation Code Description Data Cassi rce(s) Supporting Document(s) lipase 146 U/L 73-393 Lipase [place] ([facility]) ID Date Data Source [id number] 12/02/2020 02:22:00 PM EDT [facility]) Name Value Range Interpretation Code Description Data Cassi rce(s) Supporting Document(s) blood urea nitrogen 10 mg/dL 7-18 Blood Urea Nitro gen [facility]) creatinine for GFR 0.69 mg/dL 0.70-1.30 Below low normal Creatinine for GFR [facility]) glucose, fasting 84 mg/dL 70-100 Glucose, Fasting AT [facility]) potassium serum 3.9 mEq/L 3.5-5.1 Potassium Serum [facility] ([facility]) sodium level 141 mEq/L 136-145 Sodium Level [facility] ([facility]) glomerular filtration rate > 60.0 >60 Glomerula r Filtration Rate [facility] ([facility]) anion gap 2 mEq/L 8-16 Below low normal Anion Gap [facility] ( [facility]) calcium level 8.6 mg/dL 8.5-10.1 Calcium Level [facility] ( [facility]) carbon dioxide level 32 mEq/L 21-32 Carbon Dioxide Level [facility] ([facility]) chloride level 107 mEq/L 98-107 Chloride Level [facility] ([facility]) ID Date Data Source [id number] 12/02/2020 02:22:00 PM EDT [facility] ([facility]) Name Value Range Interpretation Code Description Data Cassi rce(s) Supporting Document(s) AST/SGOT 16 U/L 7-37 AST/SGOT [facility] ([facility]) bilirubin,total 0.4 mg/dL 0.2-1.0 Bilirubin,total [facility] ([facility]) ALT/SGPT 18 U/L 12-78 ALT/SGPT [facility] ([facility]) alkaline phosphatase 42 U/L 45-117 Below low normal Alkaline Phosphatase [facility] ([facility]) total protein 6.8 gm/dL 6.4-8.2 Total Protein [facility] ( [facility]) bilirubin,direct 0.1 mg/dL 0.0-0.2 Bilirubin,direct AT [facility] ([facility]) albumin 3.8 gm/dL 3.2-5.2 Albumin [facility] ([facility]) albumin/globulin ratio Albumin/globu roderick Ratio [facility] ([facility]) ID Date Data Source [id number] 12/02/2020 02:22:00 PM EDT [facility] ([facility]) Name Value Range Interpretation Code Description Data Cassi rce(s) Supporting Document(s) white blood count 4.7 10 4.0-10.0 White Blood Count [facility] ([facility]) hematocrit 39.5 % 42.0-52.0 Below low normal Hematocrit [facility] ( [facility]) hemoglobin 13.4 g/dL 13.5-17.5 Below low normal Hemoglobin [facility] ( [facility]) red blood count 4.39 10 4.30-6.10 Red Blood Count [facility] NA ([facility]) mean corpuscular volume 90.0 fL 80.0-96.0 Mean Corpusc ular Volume [facility] ([facility]) mean corpuscular hemoglobin 30.5 pg 27.0-33.0 Mean Cor puscular Hemoglobin [facility] ([facility]) mean corpuscular HGB conc 33.9 g/dL 32.0-36.5 Mean Corpu scular HGB Conc [facility] ([facility]) platelet count, automated 191 10 150-450 Platelet C ount, Automated [facility] ([facility]) red cell distribution width 12.0 % 11.5-14.5 Red Cell Distribution Width [facility] ([facility]) neutrophils % 42.4 % 36.0-66.0 Neutrophils % [facility] ( [facility]) mono % 16.7 % 2.0-8.0 Above high normal [place] % [facility] ([facility]) lymph % 34.2 % 24.0-44.0 Lymph % [facility] ([facility]) baso % 0.4 % 0.0-1.0 Baso % [facility] ([facility]) eos % 6.1 % 0.0-3.0 Above high normal Eos % [facility] ([facility]) immature granulocyte % 0.2 % 0-3.0 Immature Gran ulocyte % [facility] ([facility]) nucleated red blood cell % 0.0 % 0-0 Nucleated Red Blood Cell % [facility] ([facility]) neutrophils # 2.0 10 1.5-8.5 Neutrophils # [facility] ( [facility]) lymph # 1.6 10 1.5-5.0 Lymph # [facility] ([facility]) mono # 0.8 10 0.0-0.8 [place] # [facility] ([facility]) baso # 0.0 10 0.0-0.2 Baso # [facility] ([facility]) eos # 0.3 10 0.0-0.5 Eos # [facility] ([facility]) ID Date Data Source [id number] 12/02/2020 02:22:00 PM EDT [place] ([facility]) Name Value Range Interpretation Code Description Data Cassi rce(s) Supporting Document(s) lipase 146 U/L 73-393 Lipase [place] ([facility]) ID Date Data Source [id number] 12/02/2020 02:22:00 PM EDT [place] ([facility]) Name Value Range Interpretation Code Description Data Cassi rce(s) Supporting Document(s) blood urea nitrogen 10 mg/dL 7-18 Blood Urea Nitro gen [place] ([facility]) glucose, fasting 84 mg/dL 70-100 Glucose, Fasting AT [place] ([facility]) creatinine for GFR 0.69 mg/dL 0.70-1.30 Below low normal Creatinine for GFR [place] ([facility]) glomerular filtration rate > 60.0 >60 Glomerula r Filtration Rate [place] ([facility]) sodium level 141 mEq/L 136-145 Sodium Level [place] ([facility]) potassium serum 3.9 mEq/L 3.5-5.1 Potassium Serum ATHE NA ([facility]) carbon dioxide level 32 mEq/L 21-32 Carbon Dioxide Level [place] ([facility]) chloride level 107 mEq/L 98-107 Chloride Level [place] ([facility]) calcium level 8.6 mg/dL 8.5-10.1 Calcium Level [place] ( [facility]) anion gap 2 mEq/L 8-16 Below low normal Anion Gap [place] ( [facility]) ID Date Data Source [id number] 12/02/2020 02:22:00 PM EDT [place] ([facility]) Name Value Range Interpretation Code Description Data Cassi rce(s) Supporting Document(s) AST/SGOT 16 U/L 7-37 AST/SGOT [place] ([facility]) ALT/SGPT 18 U/L 12-78 ALT/SGPT [place] ([facility]) alkaline phosphatase 42 U/L 45-117 Below low normal Alkaline Phosphatase [place] ([facility]) bilirubin,total 0.4 mg/dL 0.2-1.0 Bilirubin,total ATHE NA ([facility]) bilirubin,direct 0.1 mg/dL 0.0-0.2 Bilirubin,direct AT [place] ([facility]) total protein 6.8 gm/dL 6.4-8.2 Total Protein [place] ( [facility]) albumin 3.8 gm/dL 3.2-5.2 Albumin [place] ([facility]) albumin/globulin ratio Albumin/globu roderick Ratio [place] ([facility]) ID Date Data Source [id number] 12/02/2020 02:22:00 PM EDT [place] ([facility]) Name Value Range Interpretation Code Description Data Cassi rce(s) Supporting Document(s) white blood count 4.7 10 4.0-10.0 White Blood Count [place] ([facility]) red blood count 4.39 10 4.30-6.10 Red Blood Count AT[facility] NA ([facility]) hemoglobin 13.4 g/dL 13.5-17.5 Below low normal Hemoglobin [place] ( [facility]) hematocrit 39.5 % 42.0-52.0 Below low normal Hematocrit [place] ( [facility]) mean corpuscular volume 90.0 fL 80.0-96.0 Mean Corpusc ular Volume [place] ([facility]) mean corpuscular hemoglobin 30.5 pg 27.0-33.0 Mean Cor puscular Hemoglobin [place] ([facility]) red cell distribution width 12.0 % 11.5-14.5 Red Cell Distribution Width [place] ([facility]) mean corpuscular HGB conc 33.9 g/dL 32.0-36.5 Mean Corpu scular HGB Conc [place] ([facility]) platelet count, automated 191 10 150-450 Platelet C ount, Automated [place] ([facility]) neutrophils % 42.4 % 36.0-66.0 Neutrophils % [place] ( [facility]) lymph % 34.2 % 24.0-44.0 Lymph % [place] ([facility]) mono % 16.7 % 2.0-8.0 Above high normal [place] % [place] ([facility]) eos % 6.1 % 0.0-3.0 Above high normal Eos % [place] ([facility]) baso % 0.4 % 0.0-1.0 Baso % [place] ([facility]) immature granulocyte % 0.2 % 0-3.0 Immature Gran ulocyte % [place] ([facility]) neutrophils # 2.0 10 1.5-8.5 Neutrophils # [place] ( [facility]) nucleated red blood cell % 0.0 % 0-0 Nucleated Red Blood Cell % [place] ([facility]) lymph # 1.6 10 1.5-5.0 Lymph # [place] ([facility]) mono # 0.8 10 0.0-0.8 [place] # [place] ([facility]) eos # 0.3 10 0.0-0.5 Eos # [place] ([facility]) baso # 0.0 10 0.0-0.2 Baso # [place] ([facility]) ID Date Data Source [id number] 12/02/2020 02:22:00 PM EDT [place] ([facility]) Name Value Range Interpretation Code Description Data Cassi rce(s) Supporting Document(s) lipase 146 U/L 73-393 Lipase [place] ([facility]) ID Date Data Source [id number] 12/02/2020 02:22:00 PM EDT [place] ([facility]) Name Value Range Interpretation Code Description Data Cassi rce(s) Supporting Document(s) glucose, fasting 84 mg/dL 70-100 Glucose, Fasting AT [facility]) creatinine for GFR 0.69 mg/dL 0.70-1.30 Below low normal Creatinine for GFR [place] ([facility]) blood urea nitrogen 10 mg/dL 7-18 Blood Urea Nitro gen [place] ([facility]) glomerular filtration rate > 60.0 >60 Glomerula r Filtration Rate [place] ([facility]) potassium serum 3.9 mEq/L 3.5-5.1 Potassium Serum A[place] NA ([facility]) sodium level 141 mEq/L 136-145 Sodium Level [place] ([facility]) chloride level 107 mEq/L 98-107 Chloride Level [place] ([facility]) carbon dioxide level 32 mEq/L 21-32 Carbon Dioxide Level [place] ([facility]) anion gap 2 mEq/L 8-16 Below low normal Anion Gap [place] ( [facility]) calcium level 8.6 mg/dL 8.5-10.1 Calcium Level [place] ( [facility]) ID Date Data Source [id number] 12/02/2020 02:22:00 PM EDT [facility]) Name Value Range Interpretation Code Description Data Cassi rce(s) Supporting Document(s) ALT/SGPT 18 U/L 12-78 ALT/SGPT [place] ([facility]) AST/SGOT 16 U/L 7-37 AST/SGOT [place] ([facility]) alkaline phosphatase 42 U/L 45-117 Below low normal Alkaline Phosphatase [place] ([facility]) total protein 6.8 gm/dL 6.4-8.2 Total Protein [place] ( [facility]) bilirubin,direct 0.1 mg/dL 0.0-0.2 Bilirubin,direct AT [facility]) bilirubin,total 0.4 mg/dL 0.2-1.0 [facility] albumin 3.8 gm/dL 3.2-5.2 Albumin [place] ([facility]) albumin/globulin ratio Albumin/globu roderick Ratio [place] ([facility]) ID Date Data Source [id number] 12/02/2020 02:22:00 PM EDT [place] ([facility]) Name Value Range Interpretation Code Description Data Cassi rce(s) Supporting Document(s) white blood count 4.7 10 4.0-10.0 White Blood Count [place] ([facility]) red blood count 4.39 10 4.30-6.10 Red Blood Count [facility] ([facility]) hemoglobin 13.4 g/dL 13.5-17.5 Below low normal Hemoglobin [place] ( [facility]) mean corpuscular hemoglobin 30.5 pg 27.0-33.0 Mean Cor puscular Hemoglobin [place] ([facility]) mean corpuscular volume 90.0 fL 80.0-96.0 Mean Corpusc ular Volume [place] ([facility]) hematocrit 39.5 % 42.0-52.0 Below low normal Hematocrit [place] ( [facility]) red cell distribution width 12.0 % 11.5-14.5 Red Cell Distribution Width [place] ([facility]) mean corpuscular HGB conc 33.9 g/dL 32.0-36.5 Mean Corpu scular HGB Conc [place] ([facility]) platelet count, automated 191 10 150-450 Platelet C ount, Automated [place] ([facility]) lymph % 34.2 % 24.0-44.0 Lymph % [place] ([facility]) neutrophils % 42.4 % 36.0-66.0 Neutrophils % [place] ( [facility]) baso % 0.4 % 0.0-1.0 Baso % [place] ([facility]) eos % 6.1 % 0.0-3.0 Above high normal Eos % [place] ([facility]) mono % 16.7 % 2.0-8.0 Above high normal [place] % [place] ([facility]) nucleated red blood cell % 0.0 % 0-0 Nucleated Red Blood Cell % [place] ([facility]) immature granulocyte % 0.2 % 0-3.0 Immature Gran ulocyte % [place] ([facility]) neutrophils # 2.0 10 1.5-8.5 Neutrophils # [place] ( [facility]) mono # 0.8 10 0.0-0.8 [place] # [place] ([facility]) lymph # 1.6 10 1.5-5.0 Lymph # [place] ([facility]) eos # 0.3 10 0.0-0.5 Eos # [place] ([facility]) baso # 0.0 10 0.0-0.2 Baso # [place] ([facility]) ID Date Data Source [id number] 11/14/2020 08:37:00 AM EDT [facility]) Name Value Range Interpretation Code Description Data Cassi rce(s) Supporting Document(s) Hemoglobin A1c/Hemoglobin.total in Blood 5.1 %_of_total_HGB <5.7 Hemoglobin a1C [facility]) ID Date Data Source [id number] 11/14/2020 08:37:00 AM EDT [facility]) Name Value Range Interpretation Code Description Data Cassi rce(s) Supporting Document(s) Calcidiol [Mass/volume] in Serum or Plasma 23 NG/mL 30-100 Below low normal Vitamin D,25-Oh,total,ia [facility]) ID Date Data Source [id number] 11/14/2020 08:37:00 AM EDT [facility]) Name Value Range Interpretation Code Description Data Cassi rce(s) Supporting Document(s) Varicella zoster virus IgG Ab [Units/volume] in Serum by Immunoassay 1027.00 index Varicella Zoster Virus Antibody (IgG) [facility]) ID Date Data Source [id number] 11/14/2020 08:37:00 AM EDT [place] ([facility]) Name Value Range Interpretation Code Description Data Cassi rce(s) Supporting Document(s) Hepatitis B virus surface Ab [Presence] in Serum by Immunoas say reactive non-reactive Abnormal (applies to non-numeric results) Hepatitis B Surface Antibody Ql [place] ([facility]) ID Date Data Source [id number] 11/14/2020 08:37:00 AM EDT [place] ([facility]) Name Value Range Interpretation Code Description Data Cassi rce(s) Supporting Document(s) Hemoglobin [Mass/volume] in Blood 13.7 g/dL 13.2-17.1 He moglobin [place] ([facility]) Leukocytes [#/volume] in Blood by Automated count 5.8 thousand/uL 3 .8-10.8 White Blood Cell Count [place] ([facility]) Erythrocytes [#/volume] in Blood by Automated count 4.52 million/uL 4.20-5.80 Red Blood Cell Count [place] ([facility]) Erythrocyte mean corpuscular hemoglobin [Entitic mass] by Automated count 30.3 pg 27.0-33.0 Mch [place] ([facility]) Erythrocyte mean corpuscular volume [Entitic volume] by Auto mated count 88.3 fL 80.0-100.0 Mcv [place] ([facility]) Hematocrit [Volume Fraction] of Blood by Automated count 39.9 % 38.5-50.0 Hematocrit [place] ([facility]) Erythrocyte distribution width [Ratio] by Automated count 11.8 % 11.0-15.0 Rdw [place] ([facility]) Erythrocyte mean corpuscular hemoglobin concentration [Mass/volume] by Automated count 34.3 g/dL 32.0-36.0 Mchc [place] ([facility]) Lymphocytes [#/volume] in Blood by Automated count 2250 cells/uL 85 0-3900 Absolute Lymphocytes [place] ([facility]) Platelet mean volume [Entitic volume] in Blood by Meg 12.2 f L 7.5-12.5 Mpv [place] ([facility]) Platelets [#/volume] in Blood by Automated count 244 thousand/uL 14 0-400 Platelet Count [place] ([facility]) Neutrophils [#/volume] in Blood by Automated count 2424 cells/uL 15 00-7800 Absolute Neutrophils [place] ([facility]) Monocytes [#/volume] in Blood by Automated count 713 cells/uL 200-9 50 Absolute Monocytes [place] ([facility]) Monocytes/100 leukocytes in Blood by Automated count 12.3 % 0-13 Monocytes [place] ([facility]) Basophils [#/volume] in Blood by Automated count 41 cells/uL 0-200 Absolute Basophils [place] ([facility]) Neutrophils/100 leukocytes in Blood by Automated count 41.8 % 38-80 Neutrophils [place] ([facility]) Lymphocytes/100 leukocytes in Blood by Automated count 38.8 % 15-49 Lymphocytes [place] ([facility]) Eosinophils [#/volume] in Blood by Automated count 371 cells/uL 15- 500 Absolute Eosinophils [place] ([facility]) Basophils/100 leukocytes in Blood by Automated count 0.7 % 0-2 Basophils [place] ([facility]) Eosinophils/100 leukocytes in Blood by Automated count 6.4 % 0-8 Eosinophils [place] ([facility]) ID Date Data Source [id number] 11/14/2020 08:37:00 AM EDT [place] ([facility]) Name Value Range Interpretation Code Description Data Cassi rce(s) Supporting Document(s) Glucose [Mass/volume] in Serum or Plasma 87 mg/dL 65-99 Glucose [place] ([facility]) Creatinine [Mass/volume] in Serum or Plasma 0.84 mg/dL 0.60-1.35 Creatinine [place] ([facility]) Glomerular filtration rate/1.73 sq M.pre dicted among blacks [Volume Rate/Area] in Serum, Plasma or Blood by Creatinine-based formula (CKD-EPI) 135 mL/min/1.73m2 > or = 60 eGFR [place] ([facility]) Glomerular filtration rate/1.73 sq M.pre dicted among non-blacks [Volume Rate/Area] in Serum, Plasma or Blood by Creatinine-based formula (CKD-EPI) 117 mL/min/1.73m2 > or = 60 eGFR Non-afr. Samoan [place] ([facility]) Urea nitrogen [Mass/volume] in Serum or Plasma 20 mg/dL 7-25 [facility] Potassium [Moles/volume] in Serum or Plasma 4.4 mmol/L 3.5-5.3 Potassium [place] ([facility]) Sodium [Moles/volume] in Serum or Plasma 139 mmol/L 135-146 Sodium [place] ([facility]) Urea nitrogen/Creatinine [Mass Ratio] in Serum or Plasma not applic able 6-22 BUN/creatinine [facility] Chloride [Moles/volume] in Serum or Plasma 102 mmol/L 98-110 Chloride [facility]) Carbon dioxide, total [Moles/volume] in Serum or Plasma 33 mmol/ L 20-32 Above high normal [facility] Calcium [Mass/volume] in Serum or Plasma 10.1 mg/dL 8.6-10.3 Calcium [place] ([facility]) Protein [Mass/volume] in Serum or Plasma 7.4 g/dL 6.1-8.1 Protein, Total [facility]) Albumin [Mass/volume] in Serum or Plasma 4.6 g/dL 3.6-5.1 Albumin [facility]) Globulin [Mass/volume] in Serum by calculation 2.8 g/dL_(calc) 1.9- 3.7 Globulin [facility]) Albumin/Globulin [Mass Ratio] in Serum or Plasma 1.6 (calc) 1.0-2 .5 Albumin/globulin Ratio [facility]) Bilirubin.total [Mass/volume] in Serum or Plasma 0.6 mg/dL 0.2-1 .2 Bilirubin, [facility] Alkaline phosphatase [Enzymatic activity/volume] in Serum or Plasma 40 U/L 36-130 Alkaline Phosphatase [place] ([facility]) Aspartate aminotransferase [Enzymatic activity/volume] in Serum or Plasma 12 U/L 10-40 Ast [place] ([facility]) Alanine aminotransferase [Enzymatic activity/volume] in Seru m or Plasma 8 U/L 9-46 Below low normal Alt [place] ([facility]) ID Date Data Source [id number] 11/14/2020 08:37:00 AM EDT [facility] Name Value Range Interpretation Code Description Data Cassi rce(s) Supporting Document(s) Thyrotropin [Units/volume] in Serum or Plasma 3.37 mIU/L 0.40-4.50 Tsh [place] ([facility]) Thyroxine (T4) free [Mass/volume] in Serum or Plasma 1.4 NG/dL 0 .8-1.8 T4, Free [place] ([facility]) ID Date Data Source [id number] 11/14/2020 08:37:00 AM EDT [place] ([facility]) Name Value Range Interpretation Code Description Data Cassi rce(s) Supporting Document(s) Measles virus IgG Ab [Units/volume] in Serum by Immunoassay 26.30 A U/mL Measles Ab (IgG), Immune Status [place] ([facility]) Mumps virus IgG Ab [Units/volume] in Serum by Immunoassay 87.60 AU/ mL Mumps Virus Ab (IgG), Immune Status [place] ([facility]) Rubella virus IgG Ab [Units/volume] in Serum or Plasma by Immunoassay 8.53 index Rubella Ab (IgG), Immune Status [place] ([facility]) ID Date Data Source [id number] 11/14/2020 08:37:00 AM EDT [facility]) Name Value Range Interpretation Code Description Data Cassi rce(s) Supporting Document(s) Cholesterol in HDL [Mass/volume] in Serum or Plasma 64 mg/dL > or = 40 HDL Cholesterol [place] ([facility]) Cholesterol [Mass/volume] in Serum or Plasma 147 mg/dL <200 Cholesterol, Total [place] ([facility]) Triglyceride [Mass/volume] in Serum or Plasma 50 mg/dL <150 Triglycerides [place] ([facility]) Cholesterol in LDL [Mass/volume] in Serum or Plasma by calculation 71 mg/dL_(calc) LDL-cholesterol [place] ([facility]) Cholesterol non HDL [Mass/volume] in Serum or Plasma 83 mg/dL_(calc ) <130 Non HDL Cholesterol [place] ([facility]) Cholesterol.total/Cholesterol in HDL [Mass Ratio] in Serum o r Plasma 2.3 (calc) <5.0 Chol/hdlc Ratio [place] ([facility]) ID Date Data Source [id number] 11/14/2020 08:37:00 AM EDT [facility]) Name Value Range Interpretation Code Description Data Cassi rce(s) Supporting Document(s) Hemoglobin A1c/Hemoglobin.total in Blood 5.1 %_of_total_HGB <5.7 Hemoglobin [facility]1C [facility] ID Date Data Source [id number] 11/14/2020 08:37:00 AM EDT [facility]) Name Value Range Interpretation Code Description Data Cassi rce(s) Supporting Document(s) Calcidiol [Mass/volume] in Serum or Plasma 23 NG/mL 30-100 Below low normal Vitamin D,25-Oh,total,ia [facility]) ID Date Data Source [id number] 11/14/2020 08:37:00 AM EDT [place] ([facility]) Name Value Range Interpretation Code Description Data Cassi rce(s) Supporting Document(s) Varicella zoster virus IgG Ab [Units/volume] in Serum by Immunoassay 1027.00 index Varicella Zoster Virus Antibody (IgG) [facility]) ID Date Data Source [id number] 11/14/2020 08:37:00 AM EDT [facility]) Name Value Range Interpretation Code Description Data Cassi rce(s) Supporting Document(s) Hepatitis B virus surface Ab [Presence] in Serum by Immunoas say reactive non-reactive Abnormal (applies to non-numeric results) Hepatitis B Surface Antibody Ql [place] ([facility]) ID Date Data Source [id number] 11/14/2020 08:37:00 AM EDT [place] ([facility]) Name Value Range Interpretation Code Description Data Cassi rce(s) Supporting Document(s) Erythrocytes [#/volume] in Blood by Automated count 4.52 million/uL 4.20-5.80 Red Blood Cell Count [place] ([facility]) Leukocytes [#/volume] in Blood by Automated count 5.8 thousand/uL 3 .8-10.8 White Blood Cell Count [place] ([facility]) Erythrocyte mean corpuscular volume [Entitic volume] by Auto mated count 88.3 fL 80.0-100.0 Mcv [place] ([facility]) Hemoglobin [Mass/volume] in Blood 13.7 g/dL 13.2-17.1 He moglobin [place] ([facility]) Erythrocyte mean corpuscular hemoglobin [Entitic mass] by Automated count 30.3 pg 27.0-33.0 Mch [place] ([facility]) Hematocrit [Volume Fraction] of Blood by Automated count 39.9 % 38.5-50.0 Hematocrit [place] ([facility]) Platelets [#/volume] in Blood by Automated count 244 thousand/uL 14 0-400 Platelet Count [place] ([facility]) Erythrocyte distribution width [Ratio] by Automated count 11.8 % 11.0-15.0 Rdw [place] ([facility]) Erythrocyte mean corpuscular hemoglobin concentration [Mass/volume] by Automated count 34.3 g/dL 32.0-36.0 Mchc [place] ([facility]) Platelet mean volume [Entitic volume] in Blood by Meg 12.2 f L 7.5-12.5 Mpv [place] ([facility]) Neutrophils [#/volume] in Blood by Automated count 2424 cells/uL 15 00-7800 Absolute [facility] Monocytes [#/volume] in Blood by Automated count 713 cells/uL 200-9 50 Absolute Monocytes [place] ([facility]) Lymphocytes [#/volume] in Blood by Automated count 2250 cells/uL 85 0-3900 Absolute Lymphocytes [place] ([facility]) Neutrophils/100 leukocytes in Blood by Automated count 41.8 % 38-80 Neutrophils [place] ([facility]) Basophils [#/volume] in Blood by Automated count 41 cells/uL 0-200 Absolute Basophils [place] ([facility]) Eosinophils [#/volume] in Blood by Automated count 371 cells/uL 15- 500 Absolute Eosinophils [place] ([facility]) Monocytes/100 leukocytes in Blood by Automated count 12.3 % 0-13 Monocytes [place] ([facility]) Lymphocytes/100 leukocytes in Blood by Automated count 38.8 % 15-49 Lymphocytes [place] ([facility]) Eosinophils/100 leukocytes in Blood by Automated count 6.4 % 0-8 Eosinophils [place] ([facility]) Basophils/100 leukocytes in Blood by Automated count 0.7 % 0-2 Basophils [place] ([facility]) ID Date Data Source [id number] 11/14/2020 08:37:00 AM EDT [place] ([facility]) Name Value Range Interpretation Code Description Data Cassi rce(s) Supporting Document(s) Glucose [Mass/volume] in Serum or Plasma 87 mg/dL 65-99 Glucose [place] ([facility]) Urea nitrogen [Mass/volume] in Serum or Plasma 20 mg/dL 7-25 Urea Nitrogen (BUN) [place] ([facility]) Creatinine [Mass/volume] in Serum or Plasma 0.84 mg/dL 0.60-1.35 Creatinine [place] ([facility]) Glomerular filtration rate/1.73 sq M.pre dicted among blacks [Volume Rate/Area] in Serum, Plasma or Blood by Creatinine-based formula (CKD-EPI) 135 mL/min/1.73m2 > or = 60 eGFR [place] ([facility]) Glomerular filtration rate/1.73 sq M.pre dicted among non-blacks [Volume Rate/Area] in Serum, Plasma or Blood by Creatinine-based formula (CKD-EPI) 117 mL/min/1.73m2 > or = 60 eGFR Non-afr. [place]oan [place] ([facility]) Urea nitrogen/Creatinine [Mass Ratio] in Serum or Plasma not applic able 6-22 BUN/creatinine Ratio [place] ([facility]) Sodium [Moles/volume] in Serum or Plasma 139 mmol/L 135-146 Sodium [place] ([facility]) Potassium [Moles/volume] in Serum or Plasma 4.4 mmol/L 3.5-5.3 Potassium [place] ([facility]) Carbon dioxide, total [Moles/volume] in Serum or Plasma 33 mmol/ L 20-32 Above high normal Carbon Dioxide [facility]) Chloride [Moles/volume] in Serum or Plasma 102 mmol/L 98-110 Chloride [facility]) Calcium [Mass/volume] in Serum or Plasma 10.1 mg/dL 8.6-10.3 Calcium [facility]) Albumin [Mass/volume] in Serum or Plasma 4.6 g/dL 3.6-5.1 Albumin [facility]) Protein [Mass/volume] in Serum or Plasma 7.4 g/dL 6.1-8.1 Protein, Total [facility]) Bilirubin.total [Mass/volume] in Serum or Plasma 0.6 mg/dL 0.2-1 .2 Bilirubin, Total [facility]) Albumin/Globulin [Mass Ratio] in Serum or Plasma 1.6 (calc) 1.0-2 .5 Albumin/globulin Ratio [facility]) Globulin [Mass/volume] in Serum by calculation 2.8 g/dL_(calc) 1.9- 3.7 [facility]obulin [facility] [facility] Alkaline phosphatase [Enzymatic activity/volume] in Serum or Plasma 40 U/L 36-130 Alkaline Phosphatase [facility]) Alanine aminotransferase [Enzymatic activity/volume] in Seru m or Plasma 8 U/L 9-46 Below low normal Alt [facility] ([facility]) Aspartate aminotransferase [Enzymatic activity/volume] in Serum or Plasma 12 U/L 10-40 Ast [facility] ([facility]) ID Date Data Source [id number] 11/14/2020 08:37:00 AM EDT [facility]) Name Value Range Interpretation Code Description Data Cassi rce(s) Supporting Document(s) Thyrotropin [Units/volume] in Serum or Plasma 3.37 mIU/L 0.40-4.50 Tsh [facility]) Thyroxine (T4) free [Mass/volume] in Serum or Plasma 1.4 NG/dL 0 .8-1.8 T4, Free [facility]) ID Date Data Source [id number] 11/14/2020 08:37:00 AM EDT [facility]) Name Value Range Interpretation Code Description Data Cassi rce(s) Supporting Document(s) Measles virus IgG Ab [Units/volume] in Serum by Immunoassay 26.30 A U/mL Measles Ab (IgG), Immune Status [facility]) Mumps virus IgG Ab [Units/volume] in Serum by Immunoassay 87.60 AU/ mL Mumps Virus Ab (IgG), Immune Status [place] ([facility]) Rubella virus IgG Ab [Units/volume] in Serum or Plasma by Immunoassay 8.53 index Rubella Ab (IgG), Immune Status [place] ([facility]) ID Date Data Source [id number] 11/14/2020 08:37:00 AM EDT [facility]) Name Value Range Interpretation Code Description Data Cassi rce(s) Supporting Document(s) Cholesterol [Mass/volume] in Serum or Plasma 147 mg/dL <200 Cholesterol, Total [facility] ([facility]) Cholesterol in HDL [Mass/volume] in Serum or Plasma 64 mg/dL > or = 40 HDL Cholesterol [facility] ([facility]) Triglyceride [Mass/volume] in Serum or Plasma 50 mg/dL <150 Triglycerides [place] ([facility]) Cholesterol in LDL [Mass/volume] in Serum or Plasma by calculation 71 mg/dL_(calc) LDL-cholesterol [facility] ([facility]) Cholesterol.total/Cholesterol in HDL [Mass Ratio] in Serum o r Plasma 2.3 (calc) <5.0 Chol/hdlc Ratio [facility] ([facility]) Cholesterol non HDL [Mass/volume] in Serum or Plasma 83 mg/dL_(calc ) <130 Non HDL Cholesterol [facility] ([facility]) ID Date Data Source [id number] 11/14/2020 08:37:00 AM EDT [facility]) Name Value Range Interpretation Code Description Data Cassi rce(s) Supporting Document(s) Hemoglobin A1c/Hemoglobin.total in Blood 5.1 %_of_total_HGB <5.7 Hemoglobin a1C [facility]) ID Date Data Source [id number] 11/14/2020 08:37:00 AM EDT [facility]) Name Value Range Interpretation Code Description Data Cassi rce(s) Supporting Document(s) Calcidiol [Mass/volume] in Serum or Plasma 23 NG/mL 30-100 Below low normal Vitamin D,25-Oh,total,ia [facility]) ID Date Data Source [id number] 11/14/2020 08:37:00 AM EDT [facility]) Name Value Range Interpretation Code Description Data Cassi rce(s) Supporting Document(s) Varicella zoster virus IgG Ab [Units/volume] in Serum by Immunoassay 1027.00 index Varicella Zoster Virus [facility] ([facility]G) [facility] ID Date Data Source [id number] 11/14/2020 08:37:00 AM EDT [facility]) Name Value Range Interpretation Code Description Data Cassi rce(s) Supporting Document(s) Hepatitis B virus surface Ab [Presence] in Serum by Immunoas say reactive non-reactive Abnormal (applies to non-numeric results) Hepatitis B Surface Antibody Ql [facility] ([facility]) ID Date Data Source [id number] 11/14/2020 08:37:00 AM EDT [place] ([facility]) Name Value Range Interpretation Code Description Data Cassi rce(s) Supporting Document(s) Erythrocytes [#/volume] in Blood by Automated count 4.52 million/uL 4.20-5.80 Red Blood Cell Count [facility] ([facility]) Hemoglobin [Mass/volume] in Blood 13.7 g/dL 13.2-17.1 He moglobin [place] ([facility]) Leukocytes [#/volume] in Blood by Automated count 5.8 thousand/uL 3 .8-10.8 White Blood Cell Count [place] ([facility]) Hematocrit [Volume Fraction] of Blood by Automated count 39.9 % 38.5-50.0 Hematocrit [place] ([facility]) Erythrocyte distribution width [Ratio] by Automated count 11.8 % 11.0-15.0 Rdw [facility] ([facility]) Erythrocyte mean corpuscular volume [Entitic volume] by Auto mated count 88.3 fL 80.0-100.0 Mcv [facility] ([facility]) Erythrocyte mean corpuscular hemoglobin concentration [Mass/volume] by Automated count 34.3 g/dL 32.0-36.0 Mchc [facility] ([facility]) Erythrocyte mean corpuscular hemoglobin [Entitic mass] by Automated count 30.3 pg 27.0-33.0 Mch [place] ([facility]) Platelets [#/volume] in Blood by Automated count 244 thousand/uL 14 0-400 Platelet Count [place] ([facility]) Neutrophils [#/volume] in Blood by Automated count 2424 cells/uL 15 00-7800 Absolute Neutrophils [place] ([facility]) Lymphocytes [#/volume] in Blood by Automated count 2250 cells/uL 85 0-3900 Absolute Lymphocytes [place] ([facility]) Platelet mean volume [Entitic volume] in Blood by Meg 12.2 f L 7.5-12.5 Mpv [place] ([facility]) Eosinophils [#/volume] in Blood by Automated count 371 cells/uL 15- 500 Absolute Eosinophils [place] ([facility]) Monocytes [#/volume] in Blood by Automated count 713 cells/uL 200-9 50 Absolute Monocytes [place] ([facility]) Neutrophils/100 leukocytes in Blood by Automated count 41.8 % 38-80 Neutrophils [place] ([facility]) Basophils [#/volume] in Blood by Automated count 41 cells/uL 0-200 Absolute Basophils [place] ([facility]) Lymphocytes/100 leukocytes in Blood by Automated count 38.8 % 15-49 Lymphocytes [place] ([facility]) Eosinophils/100 leukocytes in Blood by Automated count 6.4 % 0-8 Eosinophils [place] ([facility]) Basophils/100 leukocytes in Blood by Automated count 0.7 % 0-2 Basophils [place] ([facility]) Monocytes/100 leukocytes in Blood by Automated count 12.3 % 0-13 Monocytes [place] ([facility]) ID Date Data Source [id number] 11/14/2020 08:37:00 AM EDT [facility]) Name Value Range Interpretation Code Description Data Cassi rce(s) Supporting Document(s) Glucose [Mass/volume] in Serum or Plasma 87 mg/dL 65-99 Glucose [place] ([facility]) Urea nitrogen [Mass/volume] in Serum or Plasma 20 mg/dL 7-25 Urea Nitrogen (BUN) [facility]) Glomerular filtration rate/1.73 sq M.pre dicted among non-blacks [Volume Rate/Area] in Serum, Plasma or Blood by Creatinine-based formula (CKD-EPI) 117 mL/min/1.73m2 > or = 60 eGFR Non-afr. Samoan [facility] ([facility]) Creatinine [Mass/volume] in Serum or Plasma 0.84 mg/dL 0.60-1.35 Creatinine [facility]) Glomerular filtration rate/1.73 sq M.pre dicted among blacks [Volume Rate/Area] in Serum, Plasma or Blood by Creatinine-based formula (CKD-EPI) 135 mL/min/1.73m2 > or = 60 eGFR [facility] ([facility]) Potassium [Moles/volume] in Serum or Plasma 4.4 mmol/L 3.5-5.3 Potassium [place] ([facility]) Sodium [Moles/volume] in Serum or Plasma 139 mmol/L 135-146 Sodium [place] ([facility]) Urea nitrogen/Creatinine [Mass Ratio] in Serum or Plasma not applic able 6-22 BUN/creatinine Ratio [place] ([facility]) Calcium [Mass/volume] in Serum or Plasma 10.1 mg/dL 8.6-10.3 Calcium [place] ([facility]) Chloride [Moles/volume] in Serum or Plasma 102 mmol/L 98-110 Chloride [place] ([facility]) Carbon dioxide, total [Moles/volume] in Serum or Plasma 33 mmol/ L 20-32 Above high normal Carbon Dioxide [facility] ([facility]) Protein [Mass/volume] in Serum or Plasma 7.4 g/dL 6.1-8.1 Protein, Total [facility] ([facility]) Albumin/Globulin [Mass Ratio] in Serum or Plasma 1.6 (calc) 1.0-2 .5 Albumin/globulin Ratio [facility] ([facility]) Globulin [Mass/volume] in Serum by calculation 2.8 g/dL_(calc) 1.9- 3.7 Globulin [place] ([facility]) Albumin [Mass/volume] in Serum or Plasma 4.6 g/dL 3.6-5.1 Albumin [facility] ([facility]) Alanine aminotransferase [Enzymatic activity/volume] in Seru m or Plasma 8 U/L 9-46 Below low normal Alt [facility] ([facility]) Aspartate aminotransferase [Enzymatic activity/volume] in Serum or Plasma 12 U/L 10-40 Ast [facility] ([facility]) Alkaline phosphatase [Enzymatic activity/volume] in Serum or Plasma 40 U/L 36-130 Alkaline Phosphatase [facility] ([facility]) Bilirubin.total [Mass/volume] in Serum or Plasma 0.6 mg/dL 0.2-1 .2 Bilirubin, Total [facility] ([facility]) ID Date Data Source [id number] 11/14/2020 08:37:00 AM EDT [facility]) Name Value Range Interpretation Code Description Data Cassi rce(s) Supporting Document(s) Thyrotropin [Units/volume] in Serum or Plasma 3.37 mIU/L 0.40-4.50 Tsh [facility] ([facility]) Thyroxine (T4) free [Mass/volume] in Serum or Plasma 1.4 NG/dL 0 .8-1.8 T4, [facility] ID Date Data Source [id number] 11/14/2020 08:37:00 AM EDT [facility]) Name Value Range Interpretation Code Description Data Cassi rce(s) Supporting Document(s) Measles virus IgG Ab [Units/volume] in Serum by Immunoassay 26.30 A U/mL Measles Ab (IgG), Immune Status [place] ([facility]) Mumps virus IgG Ab [Units/volume] in Serum by Immunoassay 87.60 AU/ mL Mumps Virus Ab (IgG), Immune Status [place] ([facility]) Rubella virus IgG Ab [Units/volume] in Serum or Plasma by Immunoassay 8.53 index Rubella Ab (IgG), Immune Status [place] ([facility]) ID Date Data Source [id number] 11/14/2020 08:37:00 AM EDT [facility]) Name Value Range Interpretation Code Description Data Cassi rce(s) Supporting Document(s) Cholesterol [Mass/volume] in Serum or Plasma 147 mg/dL <200 Cholesterol, Total [place] ([facility]) Cholesterol in HDL [Mass/volume] in Serum or Plasma 64 mg/dL > or = 40 HDL Cholesterol [place] ([facility]) Cholesterol in LDL [Mass/volume] in Serum or Plasma by calculation 71 mg/dL_(calc) LDL-cholesterol [place] ([facility]) Triglyceride [Mass/volume] in Serum or Plasma 50 mg/dL <150 Triglycerides [place] ([facility]) Cholesterol non HDL [Mass/volume] in Serum or Plasma 83 mg/dL_(calc ) <130 Non HDL Cholesterol [place] ([facility]) Cholesterol.total/Cholesterol in HDL [Mass Ratio] in Serum o r Plasma 2.3 (calc) <5.0 Chol/hdlc Ratio [facility] ([facility]) ID Date Data Source [id number] 08/23/2020 12:00:00 AM EDT [facility] Name Value Range Interpretation Code Description Data Cassi rce(s) Supporting Document(s) Carestart Rapid COVID Antigen Test Negative [facility] This lab was reported by [facility]ST[facility]. ID Date Data Source [id number] 08/13/2020 02:24:00 AM EDT [place] ([facility]) Name Value Range Interpretation Code Description Data Cassi rce(s) Supporting Document(s) sima covid antigen positive negative Above high normal Sima Cov id Antigen [facility]) ID Date Data Source [id number] 08/13/2020 02:24:00 AM EDT [place] ([facility]) Name Value Range Interpretation Code Description Data Cassi rce(s) Supporting Document(s) sima covid antigen positive negative Above high normal Sima Cov id Antigen [facility]) ID Date Data Source [id number] 08/13/2020 02:24:00 AM EDT [facility]) Name Value Range Interpretation Code Description Data Cassi rce(s) Supporting Document(s) sima covid antigen positive negative Above high normal Sima Cov id Antigen [facility]) ID Date Data Source [id number] 08/13/2020 02:24:00 AM EDT [facility]) Name Value Range Interpretation Code Description Data Cassi rce(s) Supporting Document(s) sima covid antigen positive negative Above high normal [facility] Cov id [facility] ID Date Data Source [id number] 08/13/2020 02:24:00 AM EDT [place] ([facility]) Name Value Range Interpretation Code Description Data Cassi rce(s) Supporting Document(s) sima covid antigen positive negative Above high normal [facility] ID Date Data Source [id number] 08/13/2020 02:24:00 AM EDT [facility] Name Value Range Interpretation Code Description Data Cassi rce(s) Supporting Document(s) SARS COVID ANTIGEN POSITIVE [facility] This lab was ordered by BRIDGET wiggins nd reported by [facility]. ID Date Data Source [id number] 05/14/2020 12:00:00 AM EST [facility] Name Value Range Interpretation Code Description Data Cassi rce(s) Supporting Document(s) SARS coronavirus 2 RNA [Presence] in Res piratory specimen by AMBER with probe detection NEGATIVE [facility] This lab was ordered by Sierra Reaves and reported by [facility]. ID Date Data Source [id number] 05/14/2020 12:00:00 AM EST [facility] Name Value Range Interpretation Code Description Data Cassi rce(s) Supporting Document(s) Carestart Rapid COVID Antigen Test Negative [facility] This lab was reported by [facility]. Procedure Social History No Information Vital Signs ID Date Data Source UNK Name Value Range Interpretation Code Description Data Source(s) Body height 73 [in_i] 73 [in_i] [place] ([facility]) Body mass index (BMI) [Ratio] 21.4 kg/m2 21.4 k g/m2 [place] ([facility]) Body weight 2592 [oz_av] 2592 [oz_av] [facility] ([facility]) Diastolic blood pressure 74 mm[Hg] 74 mm[Hg] [place] ([facility]) Body height 73 [in_i] 73 [in_i] [place] ([facility]) Body mass index (BMI) [Ratio] 20.3 kg/m2 20.3 k g/m2 [place] ([facility]) Systolic blood pressure 111 mm[Hg] 111 mm[Hg] [facility] [place] ([facility]) Body weight 2464 [oz_av] 2464 [oz_av] [place] ([facility]) Diastolic blood pressure 74 mm[Hg] 74 mm[Hg] [place] ([facility]) Body height 73 [in_i] 73 [in_i] [place] ([facility]) Body mass index (BMI) [Ratio] 20.3 kg/m2 20.3 k g/m2 [place] ([facility]) Systolic blood pressure 111 mm[Hg] 111 mm[Hg] A [place] ([facility]) Body weight 2464 [oz_av] 2464 [oz_av] [place] ([facility]) Body height 73 [in_i] 73 [in_i] [place] ([facility]) Body height 73 [in_i] 73 [in_i] [place] ([facility]) Body height 73 [in_i] 73 [in_i] [place] ([facility]) Body height 73 [in_i] 73 [in_i] [place] ([facility]) Body height 73 [in_i] 73 [in_i] [facility] ([facility]) Patient Treatment Plan of Care Planned Activity Planned Date Details Description Data Source (s) Cholecalciferol 2000 UNT Oral Capsule [facility] ([facility]) Propranolol Hydrochloride 10 MG Oral Tablet [facility] ([facility]) Ondansetron 4 MG Disintegrating Oral Tablet [place] ([facility]) Nicotine 4 MG Chewing Gum AT [facility]) Levothyroxine Sodium 0.025 MG Oral Tablet [place] ([facility]) Propranolol Hydrochloride 10 MG Oral Tablet [place] ([facility]) Ondansetron 4 MG Disintegrating Oral Tablet [place] ([facility]) Nicotine 4 MG Chewing Gum AT [facility]) Levothyroxine Sodium 0.025 MG Oral Tablet [facility] ([facility])
--- NOTE | 2021-03-31 12:45 | REP ---
INDICATION: rlq pain COMPARISON: None. TECHNIQUE: CT Scan of the abdomen and pelvis was performed with intravenous administration of 100 cc of Isovue 370, without oral contrast. Sagittal and coronal reconstruction images are performed. FINDINGS: Lung bases: Mild fibro atelectatic change in the left costophrenic angle. Liver: Normal Gallbladder: Unremarkable. Spleen: Normal. Adrenals: Normal. Pancreas: Normal. Kidneys: Normal. Small and large bowel: Unremarkable. Free fluid: None. Abdominal aorta: No aneurysm or dissection. Adenopathy: None. Appendix: Not inflamed. Osseous structures: Unremarkable. Pelvis: No mass. IMPRESSION: Negative CT abdomen and pelvis. <Electronically signed by Dominik Ramon > 03/31/21 [id number]
[2021-03-31] MEDS ORDERED: RA M1.74 PO (12:54)
[2021-03-31] MEDS ORDERED: MIRA3350 PO (12:54)
[2021-03-31 13:06] VITALS: BP 117/77
== END 2021-03-31 13:09 | disposition home or self-care (01) ==
LOC: M ED 05:53
DX: K59.00 Constipation, unspecified (principal); E11.9 Type 2 diabetes mellitus without complications; R11.2 Nausea with vomiting, unspecified; I10 Essential (primary) hypertension; F41.9 Anxiety disorder, unspecified; F32.A Depression, unspecified; F17.220 Nicotine dependence, chewing tobacco, uncomplicated
CPT/HCPCS: 74177; 80048; 80076; 81001; 83605; 83690; 85025; 96361; 96374; 96375; 99284; J1885; J2405; Q9967

== ENCOUNTER 2022-08-26 21:12 | Emergency (ER) | payer OTHER ==
[~2022-08-26] VITALS: Ht 185.4 cm; Wt 68.1 kg
[~2022-08-26 21:12] MED LIST changes: +DISU1TAB6 PO; -DISU250T PO; +EXCETAB32 PO; -EXCETAB33 PO; +LIDO15SO PO; -LIDO2SOL17 PO; +MIRA3350 PO; -QUET50TA48 PO; +QUET50TA67 PO; +RA M1.74 PO
[2022-08-26] MEDS ORDERED: ASPI1TAB23 PO (21:24)
[2022-08-26 21:47] LABS: HEMATOCRIT 39.7 % (42.0-52.0); HEMOGLOBIN 13.2 g/dl (13.5-17.5); MEAN CORPUSCULAR HEMOGLOBIN 29.7 pg (27.0-33.0); MEAN CORPUSCULAR HGB CONC 33.2 g/dl (32.0-36.5); MEAN CORPUSCULAR VOLUME 89.2 fl (80.0-96.0); PLATELET COUNT, AUTOMATED 244 10^3/uL (150-450); RED BLOOD COUNT 4.45 10^6/uL (4.30-6.10); WHITE BLOOD COUNT 6.2 10^3/uL (4.0-10.0)
[2022-08-26 22:18] LABS: ALBUMIN 4.4 G/DL (3.2-5.2); ALKALINE PHOSPHATASE 46 U/L (46-116); ALT/SGPT 15 U/L (7.0-40); AST/SGOT 14 U/L (<34); BILIRUBIN,TOTAL 0.6 MG/DL (0.3-1.2); BLOOD UREA NITROGEN 9 MG/DL (9-23); CARBON DIOXIDE LEVEL 30 MMOL/L (20-31); CHLORIDE LEVEL 105 MMOL/L (98-107); CREATININE FOR GFR 0.79 MG/DL (0.70-1.30); GLOMERULAR FILTRATION RATE > 60.0 (>60); GLUCOSE, FASTING 88 MG/DL (60-100); POTASSIUM SERUM 3.9 MMOL/L (3.5-5.1); SODIUM LEVEL 141 MMOL/L (136-145); TOTAL PROTEIN 6.9 G/DL (5.7-8.2)
[2022-08-27 01:08] VITALS: BP 136/78
== END 2022-08-27 01:16 | disposition left against medical advice (07) ==
LOC: M ED 21:12
DX: Z53.21 Procedure and treatment not carried out due to patient leaving prior to being seen by health care provider (principal)

== ENCOUNTER 2022-08-28 19:48 | Emergency (ER) | payer OTHER ==
[~2022-08-28] VITALS: Ht 185.4 cm; Wt 68.1 kg
[~2022-08-28 19:48] MED LIST changes: +ASPI1TAB23 PO
[2022-08-28 22:30] LABS: BASO % 0.8 % (0.0-1.0); EOS # 0.2 10^3/uL (0.0-0.5); EOS % 3.9 % (0.0-3.0); HEMATOCRIT 38.4 % (42.0-52.0); HEMOGLOBIN 12.8 g/dl (13.5-17.5); LYMPH # 2.2 10^3/uL (1.5-5.0); LYMPH % 42.6 % (24.0-44.0); MEAN CORPUSCULAR HEMOGLOBIN 29.7 pg (27.0-33.0); MEAN CORPUSCULAR HGB CONC 33.3 g/dl (32.0-36.5); MEAN CORPUSCULAR VOLUME 89.1 fl (80.0-96.0); MONO # 0.7 10^3/uL (0.0-0.8); MONO % 14.2 % (2.0-8.0); NEUTROPHILS % 38.3 % (36.0-66.0); PLATELET COUNT, AUTOMATED 220 10^3/uL (150-450); RED BLOOD COUNT 4.31 10^6/uL (4.30-6.10); WHITE BLOOD COUNT 5.1 10^3/uL (4.0-10.0)
[2022-08-28 22:54] LABS: BLOOD UREA NITROGEN 13 MG/DL (9-23); CALCIUM LEVEL 8.7 MG/DL (8.5-10.1); CARBON DIOXIDE LEVEL 30 MMOL/L (20-31); CHLORIDE LEVEL 108 MMOL/L (98-107); CREATININE FOR GFR 0.76 MG/DL (0.70-1.30); GLOMERULAR FILTRATION RATE > 60.0 (>60); GLUCOSE, FASTING 105 MG/DL (60-100); MAGNESIUM LEVEL 1.9 MG/DL (1.8-2.4); SODIUM LEVEL 142 MMOL/L (136-145)
[2022-08-29] MEDS ORDERED: IBUP-1022 PO (00:02)
[2022-08-29 00:10] VITALS: BP 143/87
== END 2022-08-29 00:15 | disposition home or self-care (01) ==
LOC: M ED 19:48
DX: I83.899 Varicose veins of unspecified lower extremity with other complications (principal); Z79.82 Long term (current) use of aspirin

== ENCOUNTER 2022-09-11 00:57 | Emergency (ER) | payer OTHER ==
[~2022-09-11] VITALS: Ht 185.4 cm; Wt 68.2 kg
[2022-09-11 02:26] LABS: BLOOD UREA NITROGEN 19 MG/DL (9-23); CALCIUM LEVEL 8.6 MG/DL (8.5-10.1); CARBON DIOXIDE LEVEL 28 MMOL/L (20-31); CHLORIDE LEVEL 109 MMOL/L (98-107); CK-MB VALUE MASS < 1.0 NG/ML (<3.6); CPK CREATINE PHOSPHOKINASE 164 U/L (46-171); GLOMERULAR FILTRATION RATE > 60.0 (>60); GLUCOSE, FASTING 151 MG/DL (60-100); POTASSIUM SERUM 3.9 MMOL/L (3.5-5.1); SODIUM LEVEL 141 MMOL/L (136-145)
[2022-09-11 03:37] LABS: BASO % 0.4 % (0.0-1.0); EOS # 0.1 10^3/uL (0.0-0.5); EOS % 1.7 % (0.0-3.0); HEMATOCRIT 33.9 % (42.0-52.0); HEMOGLOBIN 11.4 g/dl (13.5-17.5); LYMPH # 1.1 10^3/uL (1.5-5.0); LYMPH % 14.6 % (24.0-44.0); MEAN CORPUSCULAR HGB CONC 33.6 g/dl (32.0-36.5); MEAN CORPUSCULAR VOLUME 89.2 fl (80.0-96.0); MONO # 0.6 10^3/uL (0.0-0.8); MONO % 8.3 % (2.0-8.0); NEUTROPHILS # 5.6 10^3/uL (1.5-8.5); NEUTROPHILS % 74.6 % (36.0-66.0); PLATELET COUNT, AUTOMATED 228 10^3/uL (150-450); WHITE BLOOD COUNT 7.6 10^3/uL (4.0-10.0)
[2022-09-11 03:41] LABS: ALBUMIN 3.7 G/DL (3.2-5.2); ALKALINE PHOSPHATASE 48 U/L (46-116); ALT/SGPT 14 U/L (7.0-40); AST/SGOT 14 U/L (<34); BILIRUBIN,TOTAL 0.4 MG/DL (0.3-1.2); TOTAL PROTEIN 6.2 G/DL (5.7-8.2)
[2022-09-11 04:35] VITALS: BP 105/68
== END 2022-09-11 04:53 | disposition home or self-care (01) ==
LOC: M ED 00:57
DX: R07.89 Other chest pain (principal); F19.10 Other psychoactive substance abuse, uncomplicated; Z88.0 Allergy status to penicillin; Z79.82 Long term (current) use of aspirin

== ENCOUNTER → 2022-12-08 | Outpatient (CLI) | payer OTHER | LOC: M RAD 13:03 | PROVIDERS: ATTEND Nurse Practitioner Adult Health | DX: R10.11 Right upper quadrant pain (principal) ==

== ENCOUNTER 2023-02-09 19:28 | Inpatient (IN) | payer OTHER ==
[~2023-02-09] VITALS: Ht 185.4 cm; Wt 68.2 kg
[~2023-02-09 19:28] MED LIST changes: -DISU1TAB6 PO; +DISU1TAB7 PO
[2023-02-09] MEDS ORDERED: MED REC IN PROGRESS XX SCH (19:45)
[2023-02-09 20:22] LABS: HEMATOCRIT 40.3 % (42.0-52.0); HEMOGLOBIN 13.5 g/dl (13.5-17.5); MEAN CORPUSCULAR HEMOGLOBIN 29.4 pg (27.0-33.0); MEAN CORPUSCULAR HGB CONC 33.5 g/dl (32.0-36.5); MEAN CORPUSCULAR VOLUME 87.8 fl (80.0-96.0); PLATELET COUNT, AUTOMATED 233 10^3/uL (150-450); RED BLOOD COUNT 4.59 10^6/uL (4.30-6.10); WHITE BLOOD COUNT 5.5 10^3/uL (4.0-10.0)
[2023-02-09 20:43] LABS: PHENCYCLIDINE URINE NEGATIVE (NEGATIVE)
[2023-02-09 20:44] LABS: AMPHETAMINES LEVEL URINE NEGATIVE (NEGATIVE); BARBITURATES URINE NEGATIVE (NEGATIVE); BENZODIAZEPINES URINE NEGATIVE (NEGATIVE); COCAINE METABOLITE URINE NEGATIVE (NEGATIVE); METHADONE URINE NEGATIVE (NEGATIVE); OPIATES URINE NEGATIVE (NEGATIVE)
[2023-02-09 20:46] LABS: ETHYL ALCOHOL (ETHANOL) < 0.003 % (0.000-0.010)
[2023-02-09 20:48] LABS: ALBUMIN 4.1 G/DL (3.2-5.2); ALKALINE PHOSPHATASE 58 U/L (46-116); ALT/SGPT 11 U/L (7.0-40); AST/SGOT 10 U/L (<34); BILIRUBIN,DIRECT 0.2 MG/DL (<0.4); BILIRUBIN,TOTAL 0.5 MG/DL (0.3-1.2); BLOOD UREA NITROGEN 16 MG/DL (9-23); CALCIUM LEVEL 9.2 MG/DL (8.5-10.1); CANNABINOIDS URINE POSITIVE (NEGATIVE); CARBON DIOXIDE LEVEL 33 MMOL/L (20-31); CHLORIDE LEVEL 104 MMOL/L (98-107); CREATININE FOR GFR 0.84 MG/DL (0.70-1.30); GLOMERULAR FILTRATION RATE > 60.0 (>60); GLUCOSE, FASTING 86 MG/DL (60-100); POTASSIUM SERUM 3.9 MMOL/L (3.5-5.1); SALICYLATE LEVEL < 3.0 MG/DL (<30); SODIUM LEVEL 142 MMOL/L (136-145); TOTAL PROTEIN 7.1 G/DL (5.7-8.2)
[2023-02-09 21:29] LABS: THYROID STIMULATING HORMONE 1.676 uIU/ML (0.55-4.78)
[2023-02-09] MEDS ORDERED: HOME MED LIST COMPLETE! XX SCH (23:25)
[2023-02-10] MEDS ORDERED: MAALOX 30 ML SUSP *UDC PO PRN (14:55)
[2023-02-10] MEDS ORDERED: IBUPROFEN 400MG TAB PO PRN (14:55)
[2023-02-10] MEDS ORDERED: ACETAMINOPHEN TAB 650MG DOSE (2X325MG) PO PRN (14:55)
[2023-02-10] MEDS ORDERED: MOM 30ML SUSPENSION UDC PO PRN (14:55)
[2023-02-10 16:42] VITALS: BP 111/78; TEMP 98.6; O2SAT 98
[2023-02-11 06:40] VITALS: BP 124/67; TEMP 98.6; O2SAT 100
[2023-02-11] MEDS: OLANZapine ORAL DISINTEGRATING TAB 5MG PO PRN (08:24)
[2023-02-11 18:21] VITALS: BP 118/67; TEMP 98.6; O2SAT 100
[2023-02-11] MEDS ORDERED: QUEtiapine FUMARATE 50MG TAB PO SCH ×2 (21:00)
[2023-02-12 06:15] VITALS: BP 103/59; TEMP 97.8; O2SAT 100
[2023-02-12 15:38] LABS: CHOLESTEROL RISK RATIO 2.937 (<5)
[2023-02-12 16:27] VITALS: BP 117/64; TEMP 98.6; O2SAT 98
[2023-02-12] MEDS: OLANZapine 5 MG TAB PO SCH (20:53)
[2023-02-13 05:48] VITALS: BP 116/82; TEMP 98.4; O2SAT 100
[2023-02-13] MEDS: diphenhydrAMINE 25MG CAP PO PRN ×2 (10:48→19:27)
[2023-02-13] MEDS: OLANZapine ORAL DISINTEGRATING TAB 5MG PO PRN (17:00)
[2023-02-13 18:27] VITALS: BP 143/79; TEMP 97.3; O2SAT 94
[2023-02-13] MEDS: OLANZapine 5 MG TAB PO SCH (21:33)
[2023-02-14 05:59] VITALS: BP 104/62; TEMP 98.4; O2SAT 98
[2023-02-14] MEDS: OLANZapine ORAL DISINTEGRATING TAB 5MG PO PRN ×2 (10:26→16:12)
[2023-02-14 15:09] VITALS: BP 119/80; TEMP 97.9; O2SAT 98
[2023-02-14 18:27] VITALS: BP 119/80; TEMP 97.9; O2SAT 98
[2023-02-14] MEDS: OLANZapine 5 MG TAB PO SCH (21:33)
[2023-02-14] MEDS: diphenhydrAMINE 25MG CAP PO PRN (21:33)
[2023-02-15 05:17] VITALS: BP 102/54; TEMP 97.4; O2SAT 98
[2023-02-15] MEDS: OLANZapine ORAL DISINTEGRATING TAB 5MG PO PRN ×3 (08:16→17:33)
[2023-02-15] MEDS: FLUoxetine 20MG CAP PO SCH (09:48)
[2023-02-15 16:02] VITALS: BP 125/65; TEMP 98
[2023-02-15] MEDS: OLANZapine 10 MG TAB PO SCH (20:18)
[2023-02-16 06:42] VITALS: BP 118/60; TEMP 97.9; O2SAT 96
[2023-02-16] MEDS: FLUoxetine 20MG CAP PO SCH (09:31)
[2023-02-16] MEDS: diphenhydrAMINE 25MG CAP PO PRN (13:00)
[2023-02-16 16:21] VITALS: BP 113/64; TEMP 98.3; O2SAT 98
[2023-02-16] MEDS: OLANZapine 10 MG TAB PO SCH (20:45)
[2023-02-16] MEDS: traZODone 50 MG TAB PO PRN (20:47)
[2023-02-17 06:48] VITALS: BP 133/77; TEMP 98.5; O2SAT 95
[2023-02-17] MEDS: FLUoxetine 20MG CAP PO SCH (08:05)
[2023-02-17] MEDS: diphenhydrAMINE 25MG CAP PO PRN (10:01)
[2023-02-17 16:30] VITALS: BP 106/65; TEMP 98.5; O2SAT 99
[2023-02-17] MEDS: OLANZapine 10 MG TAB PO SCH (20:12)
[2023-02-17] MEDS: traZODone 50 MG TAB PO PRN (21:03)
[2023-02-18 06:03] VITALS: BP 109/73; TEMP 98.1; O2SAT 97
[2023-02-18] MEDS: FLUoxetine 20MG CAP PO SCH (08:00)
[2023-02-18] MEDS ORDERED: FLUO20CA22 PO (10:02)
[2023-02-18] MEDS ORDERED: OLAN1TAB20 PO (10:02)
[2023-02-18] MEDS ORDERED: DIPH-435 PO (10:02)
[2023-02-18] MEDS ORDERED: TRAZ-252 PO (10:02)
[2023-02-18] MEDS: diphenhydrAMINE 25MG CAP PO PRN (10:15)
== END 2023-02-18 11:36 | disposition home or self-care (01) | DRG 755 ==
LOC: M ED 19:28 → M ED INP 02-10 14:52 → M PSY 02-10 16:19
PROVIDERS: ADMIT Student in an Organized Health Care Education/Training Program; ATTEND Student in an Organized Health Care Education/Training Program
DX: F42.9 Obsessive-compulsive disorder, unspecified (principal); F12.159 Cannabis abuse with psychotic disorder, unspecified; F41.9 Anxiety disorder, unspecified; F20.9 Schizophrenia, unspecified; F31.9 Bipolar disorder, unspecified; F29 Unspecified psychosis not due to a substance or known physiological condition; Z56.0 Unemployment, unspecified; Z81.8 Family history of other mental and behavioral disorders; Z65.2 Problems related to release from prison; Z91.52 Personal history of nonsuicidal self-harm; Z88.0 Allergy status to penicillin

== ENCOUNTER 2023-06-11 11:41 | Inpatient (IN) | payer MEDICAID, OTHER ==
[~2023-06-11] VITALS: Ht 185.4 cm; Wt 78.6 kg
[~2023-06-11 11:41] MED LIST changes: +DIPH-429; +DIPH-435 PO; -EFFE37.5 PO; +EFFE37.52 PO; +FLUO-96 PO; +FLUO20CA22 PO; +INVE234I IM; +MINI1CAP PO; +OLAN1TAB20 PO; +PALI1TAB2 PO; +PALI1TAB3 PO; +PRAZ1CAP PO; +QUET1TAB17 PO; +TRAZ-186 PO; +ZYPR10TA PO
[2023-06-11 13:19] LABS: HEMOGLOBIN 12.9 g/dl (13.5-17.5); MEAN CORPUSCULAR HEMOGLOBIN 29.1 pg (27.0-33.0); MEAN CORPUSCULAR HGB CONC 33.9 g/dl (32.0-36.5); MEAN CORPUSCULAR VOLUME 85.6 fl (80.0-96.0); PLATELET COUNT, AUTOMATED 210 10^3/uL (150-450); RED BLOOD COUNT 4.44 10^6/uL (4.30-6.10); WHITE BLOOD COUNT 5.9 10^3/uL (4.0-10.0)
[2023-06-11 13:44] LABS: ETHYL ALCOHOL (ETHANOL) 0.006 % (0.000-0.010)
[2023-06-11 13:46] LABS: ALBUMIN 4.4 G/DL (3.2-5.2); ALKALINE PHOSPHATASE 57 U/L (46-116); ALT/SGPT 9 U/L (7.0-40); AST/SGOT 8 U/L (<34); BILIRUBIN,DIRECT 0.2 MG/DL (<0.4); BILIRUBIN,TOTAL 0.5 MG/DL (0.3-1.2); BLOOD UREA NITROGEN 21 MG/DL (9-23); CALCIUM LEVEL 9.3 MG/DL (8.5-10.1); CARBON DIOXIDE LEVEL 29 MMOL/L (20-31); CHLORIDE LEVEL 105 MMOL/L (98-107); CREATININE FOR GFR 0.82 MG/DL (0.70-1.30); GLOMERULAR FILTRATION RATE > 60.0 (>60); GLUCOSE, FASTING 88 MG/DL (60-100); POTASSIUM SERUM 4.2 MMOL/L (3.5-5.1); SALICYLATE LEVEL < 3.0 MG/DL (<30); SODIUM LEVEL 139 MMOL/L (136-145); TOTAL PROTEIN 7.1 G/DL (5.7-8.2)
[2023-06-11 13:53] LABS: THYROID STIMULATING HORMONE 0.678 uIU/ML (0.55-4.78)
[2023-06-11 15:26] LABS: AMPHETAMINES LEVEL URINE NEGATIVE (NEGATIVE); BARBITURATES URINE NEGATIVE (NEGATIVE); BENZODIAZEPINES URINE NEGATIVE (NEGATIVE); COCAINE METABOLITE URINE NEGATIVE (NEGATIVE); METHADONE URINE NEGATIVE (NEGATIVE); OPIATES URINE NEGATIVE (NEGATIVE); PHENCYCLIDINE URINE NEGATIVE (NEGATIVE)
[2023-06-11 15:32] LABS: CANNABINOIDS URINE POSITIVE (NEGATIVE)
[2023-06-11] MEDS ORDERED: diphenhydrAMINE 25MG CAP PO PRN (16:30)
[2023-06-11] MEDS ORDERED: ACETAMINOPHEN TAB 650MG DOSE (2X325MG) PO PRN (16:30)
[2023-06-11] MEDS ORDERED: MAALOX 30 ML SUSP *UDC PO PRN (16:30)
[2023-06-11] MEDS ORDERED: MOM 30ML SUSPENSION UDC PO PRN (16:30)
[2023-06-11] MEDS ORDERED: IBUPROFEN 400MG TAB PO PRN (16:30)
[2023-06-11] MEDS ORDERED: OLANZapine 5 MG TAB PO PRN (16:30)
[2023-06-11] MEDS ORDERED: FLUO40CA PO (17:39)
[2023-06-11] MEDS ORDERED: FLUO-96 PO (17:39)
[2023-06-11] MEDS ORDERED: HYDR50CA2 PO (17:39)
[2023-06-11] MEDS ORDERED: QUET50TA4 PO (17:39)
[2023-06-11] MEDS ORDERED: HOME MED LIST COMPLETE! XX SCH (17:55)
[2023-06-11 18:13] VITALS: BP 136/87; TEMP 97.3; O2SAT 99
[2023-06-11] MEDS: PRAZOSIN 1 MG CAP PO SCH (21:22)
[2023-06-11] MEDS: QUEtiapine FUMARATE 50MG TAB PO SCH (21:22)
[2023-06-11] MEDS: traZODone 50 MG TAB PO PRN (21:22)
[2023-06-11] MEDS: PALIPERIDONE 6MG ER TAB (INVEGA) PO SCH (21:22)
[2023-06-12 06:40] VITALS: BP 115/71; TEMP 98.2; O2SAT 96
[2023-06-12] MEDS ORDERED: FLUoxetine 20MG CAP PO SCH (09:00)
[2023-06-12] MEDS: FLUoxetine 20MG CAP PO SCH (09:01)
[2023-06-12 16:19] VITALS: BP 110/74; TEMP 98.7; O2SAT 100
[2023-06-13 06:45] LABS: CHOLESTEROL RISK RATIO 3.58 (<5); HDL CHOLESTEROL 46.8 MG/DL (>40); LDL CHOLESTEROL 112.8 MG/DL (<100); NON-HDL-C 121.2 MG/DL
[2023-06-13 06:51] VITALS: BP 124/66; TEMP 97.6; O2SAT 100
[2023-06-13 16:10] VITALS: BP 112/66; TEMP 98.8; O2SAT 100
[2023-06-13] MEDS: QUEtiapine FUMARATE 100 MG TAB PO SCH (20:09)
[2023-06-14 06:09] VITALS: BP 119/75; TEMP 98.1; O2SAT 99
[2023-06-14 17:16] VITALS: BP 137/73; TEMP 97.6; O2SAT 100
[2023-06-15 06:16] VITALS: BP 127/74; TEMP 98.6; O2SAT 99
[2023-06-15 15:53] VITALS: BP 147/80; TEMP 97.9; O2SAT 97
[2023-06-15 20:15] VITALS: BP 134/71
[2023-06-16 06:24] VITALS: BP 99/59; TEMP 97.2; O2SAT 97
[2023-06-16] MEDS ORDERED: QUET100T2 PO (08:40)
[2023-06-16] MEDS ORDERED: HYDR50CA2 PO (08:40)
[2023-06-16] MEDS ORDERED: INVE234I IM (08:40)
[2023-06-16] MEDS ORDERED: FLUO40CA PO (08:40)
[2023-06-16] MEDS ORDERED: PRAZ1CAP PO (08:40)
[2023-06-16 08:46] VITALS: BP 99/59; TEMP 97.2; O2SAT 97
== END 2023-06-16 12:22 | disposition home or self-care (01) | DRG 750 ==
LOC: M ED 11:41 → M ED INP 16:37 → M PSY 18:12
PROVIDERS: ADMIT Student in an Organized Health Care Education/Training Program; ATTEND Student in an Organized Health Care Education/Training Program
DX: F25.0 Schizoaffective disorder, bipolar type (principal); F41.9 Anxiety disorder, unspecified; F60.89 Other specific personality disorders; F12.10 Cannabis abuse, uncomplicated; Z91.51 Personal history of suicidal behavior; R45.851 Suicidal ideations; Z79.899 Other long term (current) drug therapy; Z88.0 Allergy status to penicillin; F43.10 Post-traumatic stress disorder, unspecified; Z91.52 Personal history of nonsuicidal self-harm; Z65.2 Problems related to release from prison

== ENCOUNTER 2023-09-25 14:36 | Emergency (ER) | payer MEDICAID, OTHER ==
[~2023-09-25] VITALS: Ht 185.4 cm; Wt 75.8 kg
[~2023-09-25 14:36] MED LIST changes: +FLUO-365 PO; -FLUO20CA22 PO; +FLUO40CA PO; +HYDR50CA2 PO; -LIDO15SO PO; +LIDO15SO8 PO; +ONDA-282 PO; -ONDA4TAB6 PO; +QUET100T2 PO; +QUET50TA4 PO
[2023-09-25] MEDS: ACETAMINOPHEN 500 MG TAB PO ONE (16:30)
[2023-09-25 17:15] LABS: HEMATOCRIT 38.7 % (42.0-52.0); MEAN CORPUSCULAR HEMOGLOBIN 29.7 pg (27.0-33.0); MEAN CORPUSCULAR HGB CONC 33.6 g/dl (32.0-36.5); MEAN CORPUSCULAR VOLUME 88.6 fl (80.0-96.0); PLATELET COUNT, AUTOMATED 241 10^3/uL (150-450); RED BLOOD COUNT 4.37 10^6/uL (4.30-6.10); WHITE BLOOD COUNT 11.1 10^3/uL (4.0-10.0)
[2023-09-25 17:34] LABS: AMPHETAMINES LEVEL URINE NEGATIVE (NEGATIVE)
[2023-09-25 17:35] LABS: BARBITURATES URINE NEGATIVE (NEGATIVE); BENZODIAZEPINES URINE NEGATIVE (NEGATIVE); COCAINE METABOLITE URINE NEGATIVE (NEGATIVE); METHADONE URINE NEGATIVE (NEGATIVE); OPIATES URINE NEGATIVE (NEGATIVE); PHENCYCLIDINE URINE NEGATIVE (NEGATIVE)
[2023-09-25 17:37] LABS: CANNABINOIDS URINE POSITIVE (NEGATIVE); ETHYL ALCOHOL (ETHANOL) < 0.003 % (0.000-0.010)
[2023-09-25 17:39] LABS: ALBUMIN 4.4 G/DL (3.2-5.2); ALKALINE PHOSPHATASE 70 U/L (46-116); ALT/SGPT 14 U/L (7.0-40); AST/SGOT 19 U/L (<34); BILIRUBIN,DIRECT 0.1 MG/DL (<0.4); BILIRUBIN,TOTAL 0.4 MG/DL (0.3-1.2); BLOOD UREA NITROGEN 16 MG/DL (9-23); CALCIUM LEVEL 9.7 MG/DL (8.5-10.1); CARBON DIOXIDE LEVEL 29 MMOL/L (20-31); CHLORIDE LEVEL 104 MMOL/L (98-107); CREATININE FOR GFR 0.94 MG/DL (0.70-1.30); GLOMERULAR FILTRATION RATE > 60.0 (>60); GLUCOSE, FASTING 98 MG/DL (60-100); POTASSIUM SERUM 3.9 MMOL/L (3.5-5.1); SALICYLATE LEVEL < 3.0 MG/DL (<30); SODIUM LEVEL 139 MMOL/L (136-145); TOTAL PROTEIN 7.3 G/DL (5.7-8.2)
[2023-09-25 17:41] LABS: THYROID STIMULATING HORMONE 1.333 uIU/ML (0.55-4.78)
[2023-09-25] MEDS ORDERED: IBUP-1022 PO (19:43)
[2023-09-25 19:48] VITALS: BP 120/72; TEMP 98.4; O2SAT 98
== END 2023-09-25 19:52 | disposition home or self-care (01) ==
LOC: M ED 14:36
DX: S06.0X0A Concussion without loss of consciousness, initial encounter (principal); S05.12XA Contusion of eyeball and orbital tissues, left eye, initial encounter; Y04.8XXA Assault by other bodily force, initial encounter; F20.9 Schizophrenia, unspecified; F90.9 Attention-deficit hyperactivity disorder, unspecified type; Y92.009 Unspecified place in unspecified non-institutional (private) residence as the place of occurrence of the external cause; Y93.89 Activity, other specified; Y99.9 Unspecified external cause status; Z79.899 Other long term (current) drug therapy

== ENCOUNTER 2023-09-28 13:02 | Inpatient (IN) | payer OTHER ==
[~2023-09-28] VITALS: Ht 185.4 cm; Wt 78.9 kg
[2023-09-28 13:59] LABS: HEMATOCRIT 39.9 % (42.0-52.0); HEMOGLOBIN 13.3 g/dl (13.5-17.5); MEAN CORPUSCULAR HEMOGLOBIN 29.2 pg (27.0-33.0); MEAN CORPUSCULAR HGB CONC 33.3 g/dl (32.0-36.5); MEAN CORPUSCULAR VOLUME 87.5 fl (80.0-96.0); PLATELET COUNT, AUTOMATED 235 10^3/uL (150-450); RED BLOOD COUNT 4.56 10^6/uL (4.30-6.10); WHITE BLOOD COUNT 4.7 10^3/uL (4.0-10.0)
[2023-09-28 14:23] LABS: ETHYL ALCOHOL (ETHANOL) 0.043 % (0.000-0.010)
[2023-09-28 14:24] LABS: ALKALINE PHOSPHATASE 63 U/L (46-116); ALT/SGPT 11 U/L (7.0-40); AST/SGOT 8 U/L (<34); BILIRUBIN,DIRECT 0.2 MG/DL (<0.4); BILIRUBIN,TOTAL 0.4 MG/DL (0.3-1.2); BLOOD UREA NITROGEN 9 MG/DL (9-23); CALCIUM LEVEL 9.4 MG/DL (8.5-10.1); CARBON DIOXIDE LEVEL 32 MMOL/L (20-31); CHLORIDE LEVEL 107 MMOL/L (98-107); CREATININE FOR GFR 0.79 MG/DL (0.70-1.30); GLOMERULAR FILTRATION RATE > 60.0 (>60); GLUCOSE, FASTING 89 MG/DL (60-100); POTASSIUM SERUM 4.3 MMOL/L (3.5-5.1); SALICYLATE LEVEL < 3.0 MG/DL (<30); SODIUM LEVEL 143 MMOL/L (136-145); TOTAL PROTEIN 7.2 G/DL (5.7-8.2)
[2023-09-28 14:27] LABS: THYROID STIMULATING HORMONE 1.725 uIU/ML (0.55-4.78)
[2023-09-28 14:33] LABS: AMPHETAMINES LEVEL URINE NEGATIVE (NEGATIVE); BARBITURATES URINE NEGATIVE (NEGATIVE); BENZODIAZEPINES URINE NEGATIVE (NEGATIVE); COCAINE METABOLITE URINE NEGATIVE (NEGATIVE); METHADONE URINE NEGATIVE (NEGATIVE); OPIATES URINE NEGATIVE (NEGATIVE)
[2023-09-28 14:34] LABS: PHENCYCLIDINE URINE NEGATIVE (NEGATIVE)
[2023-09-28 14:38] LABS: CANNABINOIDS URINE POSITIVE (NEGATIVE)
[2023-09-28] MEDS ORDERED: MAALOX 30 ML SUSP *UDC PO PRN (18:20)
[2023-09-28] MEDS ORDERED: IBUPROFEN 400MG TAB PO PRN (18:20)
[2023-09-28] MEDS ORDERED: MOM 30ML SUSPENSION UDC PO PRN (18:20)
[2023-09-28] MEDS ORDERED: ACETAMINOPHEN TAB 650MG DOSE (2X325MG) PO PRN (18:20)
[2023-09-28] MEDS ORDERED: VENL150C43 PO (19:15)
[2023-09-28] MEDS ORDERED: HOME MED LIST COMPLETE! XX SCH (19:15)
[2023-09-28] MEDS ORDERED: QUET100T2 PO (19:15)
[2023-09-28] MEDS ORDERED: IBUP-1720 PO (19:15)
[2023-09-28] MEDS ORDERED: RISP-105 PO (19:15)
[2023-09-28 20:44] VITALS: BP 141/87; TEMP 98.7; O2SAT 97
[2023-09-28] MEDS: traZODone 50 MG TAB PO PRN (21:15)
[2023-09-28] MEDS: diphenhydrAMINE 25MG CAP PO PRN (21:15)
[2023-09-29 06:25] VITALS: BP 109/68; TEMP 97.1; O2SAT 100
[2023-09-29] MEDS: VENLAFAXINE **XR** 75MG CAPSULE PO SCH (09:43)
[2023-09-29] MEDS: IBUPROFEN 200MG TAB PO SCH (12:25)
[2023-09-29] MEDS: IBUPROFEN 400MG TAB PO SCH (12:26)
[2023-09-29 16:04] VITALS: BP 125/66; TEMP 97.3; O2SAT 100
[2023-09-29] MEDS: QUEtiapine FUMARATE 100 MG TAB PO SCH (20:21)
[2023-09-29] MEDS: PRAZOSIN 1 MG CAP PO SCH (20:21)
[2023-09-29] MEDS: traZODone 50 MG TAB PO SCH (20:21)
[2023-09-30 06:15] VITALS: BP 115/74; TEMP 97.6; O2SAT 98
[2023-09-30 18:51] VITALS: BP 122/75; TEMP 98.4; O2SAT 98
[2023-09-30 20:48] VITALS: BP 131/84
[2023-09-30] MEDS: OLANZapine ORAL DISINTEGRATING TAB 5MG PO PRN (21:32)
[2023-10-01 16:01] VITALS: BP 122/73; TEMP 97.9; O2SAT 99
[2023-10-02 06:18] VITALS: BP 124/80; TEMP 96.8; O2SAT 98
[2023-10-02] MEDS: hydrOXYzine 50 MG TAB PO PRN (13:59)
[2023-10-02 18:00] VITALS: BP 127/78; TEMP 98.1; O2SAT 98
[2023-10-03 06:18] VITALS: BP 148/81; TEMP 97.4; O2SAT 99
[2023-10-03 18:00] VITALS: BP 131/81; TEMP 97.4; O2SAT 99
[2023-10-03 21:18] VITALS: BP 117/79
[2023-10-04 06:14] VITALS: BP 108/64; TEMP 97.8; O2SAT 99
[2023-10-04] MEDS ORDERED: QUEtiapine FUMARATE 100 MG TAB PO PRN (16:50)
[2023-10-04 18:50] VITALS: BP 133/87; TEMP 98.1
[2023-10-04 20:16] VITALS: BP 134/81
[2023-10-05 06:12] VITALS: BP 116/63; TEMP 97; O2SAT 98
[2023-10-05] MEDS ORDERED: QUET100T2 PO (08:52)
[2023-10-05] MEDS ORDERED: HALO5TAB33 PO (08:52)
== END 2023-10-05 16:31 | disposition home or self-care (01) | DRG 750 ==
LOC: M ED 13:02 → M ED INP 18:16 → M PSY 20:42
PROVIDERS: ADMIT Student in an Organized Health Care Education/Training Program; ATTEND Student in an Organized Health Care Education/Training Program
DX: F25.0 Schizoaffective disorder, bipolar type (principal); R45.851 Suicidal ideations; F43.10 Post-traumatic stress disorder, unspecified; F12.10 Cannabis abuse, uncomplicated; F60.89 Other specific personality disorders; Z65.2 Problems related to release from prison; F17.200 Nicotine dependence, unspecified, uncomplicated; F10.10 Alcohol abuse, uncomplicated; Z91.51 Personal history of suicidal behavior; Z56.0 Unemployment, unspecified; Z79.899 Other long term (current) drug therapy; F41.9 Anxiety disorder, unspecified; Z91.52 Personal history of nonsuicidal self-harm

== ENCOUNTER 2023-10-22 13:25 | Inpatient (IN) | payer OTHER ==
[~2023-10-22] VITALS: Ht 185.4 cm; Wt 76.3 kg
[~2023-10-22 13:25] MED LIST changes: +HALO5TAB33 PO; +IBUP-1720 PO; +RISP-105 PO; +VENL150C43 PO
[2023-10-22 14:15] LABS: BASO % 0.4 % (0.0-1.0); EOS # 0.4 10^3/uL (0.0-0.5); EOS % 5.4 % (0.0-3.0); HEMOGLOBIN 14.3 g/dl (13.5-17.5); LYMPH # 1.8 10^3/uL (1.5-5.0); LYMPH % 26.4 % (24.0-44.0); MEAN CORPUSCULAR HEMOGLOBIN 29.5 pg (27.0-33.0); MEAN CORPUSCULAR VOLUME 86.8 fl (80.0-96.0); MONO # 0.8 10^3/uL (0.0-0.8); NEUTROPHILS # 3.8 10^3/uL (1.5-8.5); NEUTROPHILS % 56.5 % (36.0-66.0); PLATELET COUNT, AUTOMATED 246 10^3/uL (150-450); RED BLOOD COUNT 4.84 10^6/uL (4.30-6.10); WHITE BLOOD COUNT 6.8 10^3/uL (4.0-10.0)
[2023-10-22 14:40] LABS: AMPHETAMINES LEVEL URINE NEGATIVE (NEGATIVE); BARBITURATES URINE NEGATIVE (NEGATIVE); BENZODIAZEPINES URINE NEGATIVE (NEGATIVE); COCAINE METABOLITE URINE NEGATIVE (NEGATIVE); METHADONE URINE NEGATIVE (NEGATIVE); OPIATES URINE NEGATIVE (NEGATIVE); PHENCYCLIDINE URINE NEGATIVE (NEGATIVE)
[2023-10-22 14:42] LABS: ETHYL ALCOHOL (ETHANOL) < 0.003 % (0.000-0.010)
[2023-10-22 14:43] LABS: CANNABINOIDS URINE POSITIVE (NEGATIVE)
[2023-10-22 14:44] LABS: ALBUMIN 4.2 G/DL (3.2-5.2); ALKALINE PHOSPHATASE 78 U/L (46-116); ALT/SGPT 10 U/L (7.0-40); AST/SGOT < 8 U/L (<34); BILIRUBIN,DIRECT 0.2 MG/DL (<0.4); BILIRUBIN,TOTAL 0.5 MG/DL (0.3-1.2); BLOOD UREA NITROGEN 18 MG/DL (9-23); CALCIUM LEVEL 9.2 MG/DL (8.5-10.1); CARBON DIOXIDE LEVEL 30 MMOL/L (20-31); CHLORIDE LEVEL 104 MMOL/L (98-107); CREATININE FOR GFR 1.05 MG/DL (0.70-1.30); GLOMERULAR FILTRATION RATE > 60.0 (>60); GLUCOSE, FASTING 100 MG/DL (60-100); POTASSIUM SERUM 4.3 MMOL/L (3.5-5.1); SALICYLATE LEVEL < 3.0 MG/DL (<30); SODIUM LEVEL 140 MMOL/L (136-145); TOTAL PROTEIN 7.4 G/DL (5.7-8.2)
[2023-10-22 14:46] LABS: THYROID STIMULATING HORMONE 1.151 uIU/ML (0.55-4.78)
[2023-10-22] MEDS: THIAMINE 100 MG TAB PO ONE (14:52)
[2023-10-22] MEDS: MULTIVITAMINS/MINERALS THERAP 1 TAB PO ONE (14:52)
[2023-10-22] MEDS: FOLIC ACID 1MG TAB PO ONE (14:52)
[2023-10-22] MEDS ORDERED: MOM 30ML SUSPENSION UDC PO PRN (15:05)
[2023-10-22] MEDS ORDERED: ACETAMINOPHEN TAB 650MG DOSE (2X325MG) PO PRN (15:05)
[2023-10-22] MEDS ORDERED: IBUPROFEN 400MG TAB PO PRN (15:05)
[2023-10-22] MEDS ORDERED: diphenhydrAMINE 25MG CAP PO PRN (15:05)
[2023-10-22] MEDS ORDERED: MAALOX 30 ML SUSP *UDC PO PRN (15:05)
[2023-10-22] MEDS ORDERED: HALO5TAB33 PO (16:35)
[2023-10-22] MEDS ORDERED: HOME MED LIST COMPLETE! XX SCH (16:35)
[2023-10-22] MEDS: traZODone 50 MG TAB PO PRN (20:37)
[2023-10-22] MEDS: OLANZapine ORAL DISINTEGRATING TAB 5MG PO PRN (20:37)
[2023-10-23 06:06] VITALS: BP 129/81; TEMP 97.2
[2023-10-23] MEDS ORDERED: hydrOXYzine 50 MG TAB PO PRN (11:35)
[2023-10-23] MEDS ORDERED: QUEtiapine FUMARATE 100 MG TAB PO PRN (11:35)
[2023-10-23] MEDS: VENLAFAXINE **XR** 75MG CAPSULE PO SCH (11:59)
[2023-10-23 15:41] VITALS: BP 120/77; TEMP 98.1; O2SAT 98
[2023-10-23] MEDS: traZODone 50 MG TAB PO SCH (19:56)
[2023-10-23] MEDS: PRAZOSIN 1 MG CAP PO SCH (19:57)
[2023-10-24 06:03] VITALS: BP 141/80; TEMP 99.1; O2SAT 97
[2023-10-24 16:17] VITALS: BP 132/81; TEMP 97.1; O2SAT 100
[2023-10-24 20:05] VITALS: BP 136/81
[2023-10-25 05:53] VITALS: BP 121/72; TEMP 97.6
[2023-10-25 18:39] VITALS: BP 136/80; TEMP 98
[2023-10-25 20:08] VITALS: BP 119/79
[2023-10-26 06:27] VITALS: BP 121/75; TEMP 97.4; O2SAT 97
[2023-10-26] MEDS: HALOPERIDOL DECANOATE 100 MG/ML 1ML VIAL IM ONE (11:13)
[2023-10-26 16:32] VITALS: BP 124/73; TEMP 98.2
[2023-10-27 06:25] VITALS: BP 116/74; TEMP 97.3
[2023-10-27 17:33] VITALS: BP 128/79; TEMP 98.6
[2023-10-28 06:28] VITALS: BP 129/77; TEMP 97.9
[2023-10-28 15:37] VITALS: BP 131/78; TEMP 98.3; O2SAT 98
[2023-10-28 20:01] VITALS: BP 128/86
[2023-10-29 06:24] VITALS: BP 116/68; TEMP 97.6; O2SAT 97
[2023-10-29] MEDS ORDERED: HALO5TAB33 PO (09:20)
[2023-10-29] MEDS ORDERED: VENL225T32 PO (09:20)
[2023-10-29] MEDS ORDERED: HALO1TAB19 PO (09:20)
[2023-10-29] MEDS ORDERED: HALO10AM IM (09:21)
== END 2023-10-29 12:55 | disposition home or self-care (01) | DRG 750 ==
LOC: M ED 13:25 → M ED INP 15:04 → M PSY 16:36
PROVIDERS: ADMIT Student in an Organized Health Care Education/Training Program; ATTEND Student in an Organized Health Care Education/Training Program
DX: F25.0 Schizoaffective disorder, bipolar type (principal); R45.851 Suicidal ideations; F43.10 Post-traumatic stress disorder, unspecified; Z62.810 Personal history of physical and sexual abuse in childhood; Z56.0 Unemployment, unspecified; Z79.899 Other long term (current) drug therapy

== ENCOUNTER 2023-11-04 16:44 | Inpatient (IN) | payer OTHER ==
[~2023-11-04] VITALS: Ht 185.4 cm; Wt 84.5 kg
[~2023-11-04 16:44] MED LIST changes: +HALO10AM IM; +HALO1TAB19 PO; +VENL225T32 PO
[2023-11-04 18:17] LABS: HEMATOCRIT 37.4 % (42.0-52.0); HEMOGLOBIN 12.6 g/dl (13.5-17.5); MEAN CORPUSCULAR HEMOGLOBIN 29.4 pg (27.0-33.0); MEAN CORPUSCULAR HGB CONC 33.7 g/dl (32.0-36.5); MEAN CORPUSCULAR VOLUME 87.4 fl (80.0-96.0); PLATELET COUNT, AUTOMATED 224 10^3/uL (150-450); RED BLOOD COUNT 4.28 10^6/uL (4.30-6.10); WHITE BLOOD COUNT 5.4 10^3/uL (4.0-10.0)
[2023-11-04 18:32] LABS: AMPHETAMINES LEVEL URINE NEGATIVE (NEGATIVE); BARBITURATES URINE NEGATIVE (NEGATIVE); BENZODIAZEPINES URINE NEGATIVE (NEGATIVE); COCAINE METABOLITE URINE NEGATIVE (NEGATIVE); METHADONE URINE NEGATIVE (NEGATIVE); OPIATES URINE NEGATIVE (NEGATIVE); PHENCYCLIDINE URINE NEGATIVE (NEGATIVE)
[2023-11-04 18:34] LABS: ETHYL ALCOHOL (ETHANOL) 0.003 % (0.000-0.010)
[2023-11-04 18:36] LABS: ALBUMIN 3.9 G/DL (3.2-5.2); ALKALINE PHOSPHATASE 57 U/L (46-116); ALT/SGPT 12 U/L (7.0-40); AST/SGOT 8 U/L (<34); BILIRUBIN,DIRECT 0.1 MG/DL (<0.4); BILIRUBIN,TOTAL 0.4 MG/DL (0.3-1.2); BLOOD UREA NITROGEN 11 MG/DL (9-23); CARBON DIOXIDE LEVEL 30 MMOL/L (20-31); CHLORIDE LEVEL 105 MMOL/L (98-107); CREATININE FOR GFR 0.83 MG/DL (0.70-1.30); GLOMERULAR FILTRATION RATE > 60.0 (>60); GLUCOSE, FASTING 140 MG/DL (60-100); POTASSIUM SERUM 3.6 MMOL/L (3.5-5.1); SODIUM LEVEL 141 MMOL/L (136-145); TOTAL PROTEIN 6.4 G/DL (5.7-8.2)
[2023-11-04 18:38] LABS: THYROID STIMULATING HORMONE 1.268 uIU/ML (0.55-4.78)
[2023-11-04 18:39] LABS: SALICYLATE LEVEL < 3.0 MG/DL (<30)
[2023-11-04 18:45] LABS: CANNABINOIDS URINE POSITIVE (NEGATIVE)
[2023-11-04] MEDS ORDERED: traZODone 50 MG TAB PO PRN (21:25)
[2023-11-04] MEDS ORDERED: MAALOX 30 ML SUSP *UDC PO PRN (21:25)
[2023-11-04] MEDS ORDERED: MOM 30ML SUSPENSION UDC PO PRN (21:25)
[2023-11-04] MEDS ORDERED: HALO1TAB19 PO (22:32)
[2023-11-04] MEDS ORDERED: VENL225T32 PO (22:32)
[2023-11-04] MEDS ORDERED: HYDR50CA2 PO (22:32)
[2023-11-04] MEDS ORDERED: HALO10AM IM (22:32)
[2023-11-04] MEDS ORDERED: HOME MED LIST COMPLETE! XX SCH (22:35)
[2023-11-04 22:51] VITALS: BP 144/98; TEMP 97.4; O2SAT 98
[2023-11-05 06:09] VITALS: BP 132/80; TEMP 97.8; O2SAT 100
[2023-11-05] MEDS: VENLAFAXINE **XR** 75MG CAPSULE PO SCH (14:07)
[2023-11-05 16:00] VITALS: BP 122/81; TEMP 98.5; O2SAT 99
[2023-11-05] MEDS: hydrOXYzine 50 MG TAB PO SCH (20:14)
[2023-11-05] MEDS: traZODone 50 MG TAB PO SCH (20:14)
[2023-11-05] MEDS: PRAZOSIN 1 MG CAP PO SCH (20:15)
[2023-11-06 06:15] VITALS: BP 124/73; TEMP 98.3; O2SAT 98
[2023-11-06 09:15] VITALS: BP 124/73; TEMP 98.3; O2SAT 98
[2023-11-06 16:36] VITALS: BP 128/81; TEMP 97.8; O2SAT 98
[2023-11-07 06:05] VITALS: BP 110/69; TEMP 98.1; O2SAT 97
[2023-11-07 18:00] VITALS: BP 127/70; TEMP 98.9; O2SAT 100
[2023-11-08 06:00] VITALS: BP 109/60; TEMP 98.8; O2SAT 96
[2023-11-08 18:41] VITALS: BP 140/85; TEMP 97.5
[2023-11-09 05:49] VITALS: BP 131/73; TEMP 98.4; O2SAT 97
[2023-11-09 18:30] VITALS: BP 130/74; TEMP 98.5
[2023-11-10 06:30] VITALS: BP 117/75; TEMP 98.4; O2SAT 100
[2023-11-10 17:29] VITALS: BP 122/78; TEMP 97.4
[2023-11-10] MEDS: ACETAMINOPHEN TAB 650MG DOSE (2X325MG) PO PRN (20:24)
[2023-11-11 06:32] VITALS: BP 123/59; TEMP 96.9; O2SAT 97
[2023-11-11 18:55] VITALS: BP 130/81; TEMP 98.8; O2SAT 98
[2023-11-11] MEDS: LITHIUM CARBONATE 150 MG CAP PO SCH (20:04)
[2023-11-12] MEDS ORDERED: VENLAFAXINE **XR** 75MG CAPSULE As Ordered ONE (09:15)
[2023-11-12 16:59] VITALS: BP 148/81; TEMP 98.4; O2SAT 98
[2023-11-13 06:21] VITALS: BP 137/88; TEMP 98.3; O2SAT 98
[2023-11-13 17:03] VITALS: BP 130/60; TEMP 98.4; O2SAT 100
[2023-11-14 06:15] VITALS: BP 112/65; TEMP 97.4; O2SAT 100
[2023-11-14 17:12] VITALS: BP 122/71; TEMP 98.2; O2SAT 100
[2023-11-14 20:08] VITALS: BP 139/82
[2023-11-14] MEDS: QUEtiapine FUMARATE 100 MG TAB PO PRN (20:11)
[2023-11-15 06:00] VITALS: BP 120/68; TEMP 98.2; O2SAT 97
[2023-11-15] MEDS: TUBERCULIN PPD 5 UNITS/0.1 ML ID ONE (09:16)
[2023-11-15 17:56] VITALS: BP 124/74; TEMP 98.6
[2023-11-16 06:24] VITALS: BP 119/61; TEMP 98.5; O2SAT 96
[2023-11-16] MEDS: diphenhydrAMINE 25MG CAP PO PRN (08:58)
[2023-11-16 18:12] VITALS: BP 141/85; TEMP 97.8
[2023-11-16 20:00] VITALS: BP 138/76
[2023-11-17 06:11] VITALS: BP 105/60; TEMP 97.6; O2SAT 96
[2023-11-17] MEDS: PPD DOCUMENTATION ENTRY MISC XX SCH (08:19)
[2023-11-17] MEDS: ONDANSETRON 4MG ORAL DISINTEGRATING TAB PO PRN (16:53)
[2023-11-17 17:30] VITALS: BP 147/83; TEMP 97.5; O2SAT 97
[2023-11-17] MEDS: IBUPROFEN 400MG TAB PO PRN (19:10)
[2023-11-18 06:21] VITALS: BP 131/60; TEMP 97.8; O2SAT 95
[2023-11-18 18:37] VITALS: BP 128/79; TEMP 98.4; O2SAT 99
[2023-11-19 06:15] VITALS: BP 107/54; TEMP 97.4; O2SAT 97
[2023-11-19 16:35] VITALS: BP 144/88; TEMP 97.9; O2SAT 99
[2023-11-20 06:30] VITALS: BP 133/63; TEMP 97.4; O2SAT 100
[2023-11-20 17:34] VITALS: BP 132/83; TEMP 98; O2SAT 97
[2023-11-21 06:27] VITALS: BP 118/68; TEMP 97.4; O2SAT 98
[2023-11-21 17:01] VITALS: BP 149/81; TEMP 98.1; O2SAT 98
[2023-11-22 06:20] VITALS: BP 116/64; TEMP 97.8; O2SAT 98
[2023-11-22 19:47] VITALS: BP 141/83; TEMP 98
[2023-11-22 20:13] VITALS: BP 140/89
[2023-11-23 06:11] VITALS: BP 119/70; TEMP 97.4; O2SAT 99
[2023-11-23 13:20] VITALS: BP 139/86; TEMP 98.2; O2SAT 100
[2023-11-25] MEDS ORDERED: HALOPERIDOL DECANOATE 100 MG/ML 1ML VIAL IM SCH (09:00)
== END 2023-11-23 13:26 | DRG 750 ==
LOC: M ED 16:44 → M ED INP 21:24 → M PSY 22:38
PROVIDERS: ADMIT Student in an Organized Health Care Education/Training Program; ATTEND Student in an Organized Health Care Education/Training Program
DX: F25.1 Schizoaffective disorder, depressive type (principal); R45.851 Suicidal ideations; F43.10 Post-traumatic stress disorder, unspecified; D64.9 Anemia, unspecified; F12.90 Cannabis use, unspecified, uncomplicated; F90.9 Attention-deficit hyperactivity disorder, unspecified type; F42.9 Obsessive-compulsive disorder, unspecified; Z91.52 Personal history of nonsuicidal self-harm; Z91.51 Personal history of suicidal behavior; Z62.810 Personal history of physical and sexual abuse in childhood; Z56.0 Unemployment, unspecified; Z79.899 Other long term (current) drug therapy; Z11.52 Encounter for screening for COVID-19

== ENCOUNTER → 2024-06-15 | Outpatient (CLI) | payer OTHER ==
[~2024-06-15] MED LIST changes: -ARIP1TAB43; +ARIP20TA51; -CYPR4TA; +CYPR4TAB36
== END ==
LOC: M WHC 07:42
PROVIDERS: ATTEND Physician Assistant
DX: R92.0 Mammographic microcalcification found on diagnostic imaging of breast (principal)

== ENCOUNTER 2024-11-16 18:06 | Emergency (ER) | payer OTHER ==
[~2024-11-16] VITALS: Ht 185.4 cm; Wt 74.8 kg
[~2024-11-16 18:06] MED LIST changes: +VENL225T PO; -VENL225T32 PO
[2024-11-16] MEDS ORDERED: LITH300C (18:20)
[2024-11-16 19:40] LABS: BASO # 0.0 10^3/uL (0.0-0.2); BASO % 0.3 % (0.0-1.0); EOS # 0.1 10^3/uL (0.0-0.5); EOS % 0.9 % (0.0-3.0); LYMPH # 1.7 10^3/uL (1.5-5.0); LYMPH % 18.8 % (24.0-44.0); MONO # 0.8 10^3/uL (0.0-0.8); MONO % 9.5 % (2.0-8.0); NEUTROPHILS # 6.2 10^3/uL (1.5-8.5); NEUTROPHILS % 70.3 % (36.0-66.0); PLATELET COUNT, AUTOMATED 292 10^3/uL (150-450)
[2024-11-16 20:15] LABS: ALT/SGPT 11 U/L (7.0-40); AST/SGOT 16 U/L (<34)
[2024-11-16 20:54] VITALS: TEMP 98.7
[2024-11-16 22:32] VITALS: BP 133/82; O2SAT 99
== END 2024-11-16 22:34 | disposition home or self-care (01) ==
LOC: M ED 18:06
DX: R10.11 Right upper quadrant pain (principal); I10 Essential (primary) hypertension; F17.210 Nicotine dependence, cigarettes, uncomplicated; F12.10 Cannabis abuse, uncomplicated; Z79.899 Other long term (current) drug therapy